=== PATIENT | female | born 1985 | race Caucasian/White ===

== ENCOUNTER 2017-08-25 22:33 | Emergency (ER) | payer OTHER, MEDICAID, SELFPAY ==
[2017-08-25 22:40] VITALS: BP 149/93; PULSE 115; RESP 22; TEMP 38.8; O2SAT 95; BMI 48.0
[2017-08-26] MEDS: ACETAMINOPHEN 325 MG TABLET 975 MG PO (00:20)
[2017-08-26] MEDS: IBUPROFEN 400 MG TABLET PO (00:20)
[2017-08-26 01:01] VITALS: BP 136/84; PULSE 107; RESP 22; TEMP 38.1; O2SAT 92
[2017-08-26] MEDS: AZITHROMYCIN 250 MG TABLET 500 MG PO (01:30)
--- NOTE | 2017-08-26 05:29 | ED_ITS ---
HPI - URI/Sore Throat General Chief Complaint: Upper Respiratory Symptoms Stated Complaint: FEVER,SORE THROAT,CHILLS Time Seen by Provider: 08/26/17 00:00 Source: patient and family Mode of arrival: ambulatory Limitations: no limitations History of Present Illness HPI Narrative: 32-year-old relatively healthy female presents with a chief complaint of a sudden onset severe sore throat with fever as high as 102. She states it hurts her to swallow and she denies other respiratory symptoms such as runny nose or cough. She was exposed to a friend was strep in the past few days MD Complaint: fever and sore throat Onset (ago): hour(s) Duration: constant Severity: similar to previous episodes Relieving factors: nothing Exacerbating factors: nothing Able to tolerate fluids by mouth: Yes Context: sick contacts Associated symptoms: fever and sore throat Treatments prior to arrival: none Related Data Previous Rx's Medication Instructions Recorded albuterol sulfate [Proventil HFA] 2 puff INH Q4-6H #17 gm 10/08/12 fluticasone-salmeterol [Advair 1 puff INH BID #1 disk 10/08/12 Diskus] ciprofloxacin HCl [Cipro] 500 mg PO BID 4 Days #0 tab 12/25/15 hydrocodone-acetaminophen [[place]] 1 - 2 tab PO Q4H PRN #15 tab 05/28/17 azithromycin 500 mg PO DAILY 5 Days tab 08/26/17 Allergies Allergy/AdvReac Type Severity Reaction Status Date / Time No Known Drug Allergies Allergy Verified 08/25/17 22:39 Review of Systems Review of Systems All systems reviewed & are unremarkable except as noted in HPI and below Constitutional Reports chills, Reports fever(s), Denies lethargy and Denies weakness Eyes Denies change in vision, Denies eye discharge, Denies irritation and Denies loss of vision ENT Ears, Nose, Mouth, and Throat: Denies change in voice, Denies neck pain and Reports sore throat Cardiovascular Denies chest pain, Denies irregular heart rhythm, Denies lightheadedness, Denies palpitations, Denies dyspnea, Denies dyspnea on exertion and Denies orthopnea Respiratory Denies cough, Denies dyspnea, Denies dyspnea on exertion and Denies wheezing Gastrointestinal Gastrointestinal: Denies abdominal pain, Denies change in bowel habits, Denies diarrhea, Denies nausea and Denies vomiting Genitourinary Denies hematuria, Denies flank pain, Denies urinary incontinence and Denies urinary urgency Musculoskeletal Denies neck pain Integumentary/Breasts Denies pruritus, Denies erythema, Denies rash and Denies wounds Neurologic Denies confusion, Denies loss of vision and Denies weakness Psychiatric Denies anxiety, Denies confusion, Denies depression, Denies homicidal ideation and Denies suicidal ideation Endocrine Denies palpitations Hematologic/Lymphatic Denies easy bruising Allergic/Immunologic Denies wheezing [facility] Social History Smoking Status: Current some day smoker Exam Initial Vital Signs Initial Vital Signs: Vital Signs Temperature 101.8 F H 08/25/17 22:40 Pulse Rate 115 H 08/25/17 22:40 Respiratory Rate 22 08/25/17 22:40 Blood Pressure 149/93 H 08/25/17 22:40 Pulse Oximetry 95 08/25/17 22:40 Const General: cooperative and well developed Nutritional Appearance: well nourished Orientation: alert, awake, oriented x3 and not confused HENAR Head: normocephalic and atraumatic Ears: external ears normal and TM's normal bilaterally Nose: external nose normal and No nasal discharge Face and sinus: sinuses nontender, face symmetric, no sinus tenderness and No dry mucous membranes Mouth: oral mucosae normal and moist mucous membranes Teeth and gingiva: dentition normal Throat: posterior oropharynx abnormal edema and erythema Eyes General: appearance normal, both eyes and all related structures Eyelids: eyelids normal Conjunctivae: conjunctivae normal Sclera: sclerae normal Pupils: PERRL EOM: EOM intact bilaterally Neck Neck: normal visual inspection, trachea midline, No lymphadenopathy, No midline deformity and No JVD Lymphatic: No lymphedema Chest Chest: normal inspection of the chest Resp Effort & Inspection: normal respiratory effort, able to speak in complete sentences, no respiratory distress and no use of accessory muscles Auscultation: clear to auscultation bilaterally, no rales, no rhonchi and no wheezes Cardio Rate: regular rate Rhythm: regular rhythm Heart Sounds: no click, no gallops, no murmurs and no rubs Pulses: normal peripheral pulses GI Inspection: non-distended Palpation: soft, no hepatosplenomegaly, No guarding, No pulsatile mass and No tender Auscultation: normal bowel sounds Back/Spine/Pelvis Back: No CVA tenderness Cervical Spine: cervical ROM normal and No pain with cervical ROM Thoracic/Lumbar Spine: thoracic and lumbar spine normal to inspection Skin General: no rashes or lesions noted, No jaundice and No petechiae Neuro General: alert, oriented x3, gait normal and no focal motor deficits Speech: speech normal Extrem General: full ROM, no clubbing, cyanosis or edema, no pedal edema and no calf tenderness Psych Appearance: well kempt Mental Status: mental status grossly normal Attitude: cooperative Thought Content: normal and suicidality Judgment: judgment good Course Orders Ordered: Discontinued Medications Acetaminophen (Tylenol) 975 mg PO NOW ONE Stop: 08/26/17 00:18 Last Admin: 08/26/17 00:20 Dose: 975 mg Azithromycin (Zithromax) 500 mg PO NOW ONE Stop: 08/26/17 01:24 Last Admin: 08/26/17 01:30 Dose: 500 mg Ibuprofen (Advil) 400 mg PO NOW ONE Stop: 08/26/17 00:18 Last Admin: 08/26/17 00:20 Dose: 400 mg Vital Signs - 8 hr 08/25/17 22:40 08/26/17 01:01 Temperature 101.8 F H 100.6 F H Pulse Rate 115 H 107 H Respiratory Rate 22 22 Blood Pressure 149/93 H Blood Pressure [Right Arm] 136/84 H Pulse Oximetry 95 92 MDM - URI/Sore Throat Lab Data Lab Results 08/25/17 Range/Units 23:08 Urine RBC Cancelled Urine WBC Cancelled Ur Squamous Epith Cells Cancelled Ur Transition Epith Cell Cancelled Ur Renal Epithelial Cell Cancelled Calcium Oxalate Crystal Cancelled Uric Acid Crystals Cancelled Triple Phos Crystals Cancelled Other Crystals Cancelled Amorphous Sediment Cancelled Urine Bacteria Cancelled Hyaline Casts Cancelled Granular Casts Cancelled RBC Casts Cancelled WBC Casts Cancelled Other Casts Cancelled Urine Mucus Cancelled Urine Trichomonas Cancelled Urine Yeast Cancelled Urine Sperm Cancelled Ur Culture Indicated? Cancelled Micro UA Comment Cancelled MDM Narrative Medical decision making narrative: The rapid strep test was negative but the symptoms started later in the day and rapidly worsened. She has a significant fever and pain with swallowing but lacks other typical viral upper respiratory infections. She has been of exposed to swab confirm strep and has had strep in the past and states this feels the same. Even no her rapid strep was negative it seems most consistent with strep infection and therefore antibiotics will be administered Discharge Plan Departure Patient Disposition: Home, Self-Care Clinical Impression: Strep pharyngitis Discharge Date/Time: 08/26/17 01:38 Interventions: ED Discharge Assessment Last Done: 08/26/17 01:37 Instructions: DI for Strep Throat Activity Restrictions/Additional Instructions: *You have been diagnosed with [strep throat ] *What to do: *Take medications as directed *Follow up with your primary care provider in 2-3 days *Return to ER if you should have any new, worsening or concerning symptoms Prescriptions: New azithromycin 500 mg tablet 500 mg PO DAILY 5 Days RF: 0 No Action fluticasone-salmeterol [Advair Diskus] 100 MCG/50 MCG blister with device 1 puff INH BID Qty: 1 RF: 12 albuterol sulfate [Proventil HFA] 90 MCG/PUFF HFA aerosol inhaler 2 puff INH Q4-6H Qty: 17 RF: 12 ciprofloxacin HCl [Cipro] 500 MG tablet 500 mg PO BID 4 Days Qty: 0 RF: 0 hydrocodone-acetaminophen [[place]] 5 MG/325 MG tablet 1 - 2 tab PO Q4H PRNQty: 15 RF: 0
== END 2017-08-26 01:38 | disposition home or self-care (01) ==
PROVIDERS: Emergency Provider Emergency Medicine; PCP Physician Assistant Medical
DX: J02.0 Streptococcal pharyngitis (principal)
CPT/HCPCS: 81025; 87880; 99282; 99283

== ENCOUNTER 2018-03-19 12:30 | Emergency (ER) | payer OTHER, MEDICAID, SELFPAY ==
--- NOTE | 2018-03-19 13:07 | DI.RAD.S_ITS ---
PROCEDURE: XR FINGER RT MIN 2V INDICATIONS: injury TECHNIQUE: AP hand, 2 views of the index (2nd) finger(s) acquired. COMPARISON: None. FINDINGS: Bones: No displaced fractures or dislocations are identified involving the index finger. Soft tissues: No suspicious soft tissue calcifications. Soft tissue swelling about the index finger is present. No unexpected radiopaque foreign bodies are evident. IMPRESSION: No acute osseous abnormality of the right index finger. Dictated by: Aramis Delatorre M.D. on 03/19/2018 at 12:29 Approved by: Aramis Delatorre M.D. on 03/19/2018 at 12:38
[2018-03-19 13:08] VITALS: BP 167/94; PULSE 86; RESP 15; TEMP 36.9; O2SAT 97; BMI 46.3
--- NOTE | 2018-03-19 13:14 | ED_ITS ---
HPI - Extremity Injury (Upper) <WILBERT Capps - Last Filed: 03/19/18 15:24> General Chief Complaint: Extremity Injury, Upper Stated Complaint: RIGHT HAND INJURY Time Seen by Provider: 03/19/18 13:09 Source: patient Mode of arrival: ambulatory Limitations: no limitations History of Present Illness HPI narrative: Patient is a 33-year-old female current everyday smoker with ADHD and history of a humerus fracture who presents with a chief complaint of an injury to her 2nd finger of her right him. She states she closed in a back car door at approximately 11:00 a.m. this morning. She is unsure of her last tetanus. She states there is still skin on the car door. Related Data Previous Rx's Medication Instructions Recorded albuterol sulfate [Proventil HFA] 2 puff INH Q4-6H #17 gm 10/08/12 fluticasone-salmeterol [Advair 1 puff INH BID #1 disk 10/08/12 Diskus] Allergies Allergy/AdvReac Type Severity Reaction Status Date / Time No Known Drug Allergies Allergy Verified 03/19/18 13:08 Review of Systems <WILBERT Capps - Last Filed: 03/19/18 15:24> Review of Systems GENERAL: Denies chills, fatigue, malaise, fever, sweats. HEENT: Denies sinus pain, ear pain, sore throat, difficulty swallowing, dizziness. RESPIRATORY: Denies dyspnea, cough, wheezing, hemoptysis, sputum. CARDIOVASCULAR: Denies chest pain, palpitations, orthopnea, edema, GASTROINTESTINAL: Denies nausea, vomiting, abdominal pain, diarrhea, constipation, melena. : Denies dysuria, frequency, incontinence, hematuria, urinary retention. MUSCULOSKELETAL: See HPI SKIN: see HPI NEUROLOGIC: Denies weakness, headache, numbness, change in speech, confusion, seizures, incoordination. PSYCHIATRIC: No concerning psychosocial issues. 12 point review of systems is negative except for those stated above Exam <WILBERT Capps - Last Filed: 03/19/18 15:24> Narrative Exam Narrative: GENERAL: This is a well-nourished, well-developed patient, in no acute distress HEAD: Atraumatic. Normocephalic. No temporal or scalp tenderness. EYES: Pupils equal round and reactive. Extraocular motions intact. No scleral icterus. No injection or drainage. ENT: Nose without bleeding, purulent drainage or septal hematoma. Throat without erythema, tonsillar hypertrophy or exudate. Uvula midline. Airway patent. NECK: Trachea midline. No JVD or lymphadenopathy. Supple, nontender, no meningeal signs. CARDIOVASCULAR: Regular rate and rhythm without murmurs, gallops, or rubs. RESPIRATORY: Clear to auscultation. Breath sounds equal bilaterally. No wheezes , rales, or rhonchi. GASTROINTESTINAL: Abdomen soft, non-tender, nondistended. No hepato-splenomegaly , or palpable masses. No guarding. EXTREMITIES: No clubbing, cyanosis, or edema. No joint tenderness, effusion, or edema noted. Full range of motion noted 2nd digit right hand. BACK: Nontender without deformity or crepitance. No flank tenderness. NEURO: AOx3. SKIN: 1.5 cm linear laceration 2nd digit right hand dorsal aspect. From base of the nail. Approximately 2-3 mm separation between sides. Through dermis. No tendon or muscle involvement. Initial Vital Signs Initial Vital Signs: Vital Signs Temperature 98.4 F 03/19/18 13:08 Pulse Rate 86 03/19/18 13:08 Respiratory Rate 15 03/19/18 13:08 Blood Pressure 167/94 H 03/19/18 13:08 Pulse Oximetry 97 03/19/18 13:08 <Silvestre Betancourt DO - Last Filed: 03/19/18 15:30> Initial Vital Signs Initial Vital Signs: Vital Signs Temperature 98.4 F 03/19/18 13:08 Pulse Rate 86 03/19/18 13:08 Respiratory Rate 15 03/19/18 13:08 Blood Pressure 167/94 H 03/19/18 13:08 Pulse Oximetry 97 03/19/18 13:08 Procedures <JOSEY Capps-BC - Last Filed: 03/19/18 15:24> Laceration Repair Laceration 1: Site: hand (2nd digit ) Side (If applicable): right Size (cm): 1.5 Description: linear Depth: simple, single layer Pre-repair: wound explored, irrigated extensively ( Hibiclens and iodine ) and deep structures intact Skin layer closed with: other (2 steri strip) Size (cm): other (1.5) Course <WILBERT Capps - Last Filed: 03/19/18 15:24> Orders Ordered: ED Orders 03/19/18 13:07 XR finger RT min 2V Stat Vital Signs - 8 hr 03/19/18 13:08 Temperature 98.4 F Pulse Rate 86 Respiratory Rate 15 Blood Pressure 167/94 H Pulse Oximetry 97 <Silvestre Betancourt DO - Last Filed: 03/19/18 15:30> Orders Ordered: ED Orders 03/19/18 13:07 XR finger RT min 2V Stat Vital Signs - 8 hr 03/19/18 13:08 Temperature 98.4 F Pulse Rate 86 Respiratory Rate 15 Blood Pressure 167/94 H Pulse Oximetry 97 MDM - Extremity Injury (Upper) <WILBERT Capps - Last Filed: 03/19/18 15:24> Imaging Data finger xray : Radiologist's impression: [address] [address] XRay Report Signed Patient: Adenike Monae [facility]#: [id number] : 1985Acct:[id number] Age/Sex: 33 / FDate of Service: 03/19/18 Loc: ED Accession Number: [id number] Procedure: XR finger RT min 2V Ordering Provider: Silvestre Betancourt D.O. PROCEDURE: XR FINGER RT MIN 2V INDICATIONS: injury TECHNIQUE: AP hand, 2 views of the index (2nd) finger(s) acquired. COMPARISON: None. FINDINGS: Bones: No displaced fractures or dislocations are identified involving the index finger. Soft tissues: No suspicious soft tissue calcifications. Soft tissue swelling about the index finger is present. No unexpected radiopaque foreign bodies are evident. IMPRESSION: No acute osseous abnormality of the right index finger. Dictated by: Aramis Delatorre M.D. on 03/19/2018 at 12:29 Approved by: Aramis Delatorre M.D. on 03/19/2018 at 12:38 [facility] Narrative Medical decision making narrative: patient is a 33-year-old female who presents with chief complaint of a laceration to her 2nd digit of her right hand. She closed her hand in a car door. Her tetanus was updated. Her x-ray showed no acute fracture. His laceration was closed with 2 Steri-Strips after being cleansed with Hibiclens. She has full range of motion and good circulation. I discussed at length monitoring for signs and symptoms of infection including redness, pus fever. Discussed return precautions the emergency department Including concern for circulation of finger.. Patient has no questions or concerns upon discharge. Discharge Plan Departure Patient Disposition: Home Clinical Impression: Laceration Discharge Date/Time: 03/19/18 15:02 Interventions: ED Discharge Assessment Last Done: 03/19/18 15:02 Instructions: DI for Laceration Repair Steri-Strips, How To Perform RICE (Rest , Ice, Compress, Elevate) Activity Restrictions/Additional Instructions: Please monitor your wound for signs and symptoms of infection including redness, pus and fever. Please follow-up with primary care provider if any of these occur. Please monitor your finger for circulation. Please do not submerge her finger injury dirty water including tubs pools etc. Please use rest ice compression elevation as well as [id number] medications as needed for pain. Prescriptions: No Action fluticasone-salmeterol [Advair Diskus] 100 MCG/50 MCG blister with device 1 puff INH BID Qty: 1 RF: 12 albuterol sulfate [Proventil HFA] 90 MCG/PUFF HFA aerosol inhaler 2 puff INH Q4-6H Qty: 17 RF: 12 Referrals: Laura Mcpherson PA-C [Primary Care Provider] - <Silvestre Betancourt DO - Last Filed: 03/19/18 15:30> Cosign ED Attending Chantel Attestation: I was available for consultation during this patient's emergency department encounter
[2018-03-19] MEDS: DIPHTH,PERTUSS(ACELL),TET VAC 0.5 ML SYRINGE IM (13:32)
== END 2018-03-19 15:02 | disposition home or self-care (01) ==
PROVIDERS: Emergency Provider Nurse Practitioner Family; PCP Physician Assistant Medical
DX: S61.210A Laceration without foreign body of right index finger without damage to nail, initial encounter (principal); W23.0XXA Caught, crushed, jammed, or pinched between moving objects, initial encounter
CPT/HCPCS: 29130; 73140; 90471; 90715; 99283

== ENCOUNTER 2018-07-23 11:03 | Emergency (ER) | payer OTHER, MEDICAID, SELFPAY ==
--- NOTE | 2018-07-23 | DI.RAD.S_ITS ---
PROCEDURE: XR HUMERUS LT 2V INDICATIONS: LEFT ARM PAIN TECHNIQUE: 2 views of the humerus were acquired. COMPARISON: [facility], , HUMERUS 2V LEFT, 05/28/2017, 19:07. FINDINGS: Bones: No previously unidentified fractures or dislocations. No suspicious bony lesions. A long fixation plate extends across the previously identified fracture involving the mid diaphysis of the left humerus, establishing near anatomic alignment except for a small medial butterfly fracture fragment which is slightly elevated from anatomic alignment. Soft tissues: No suspicious soft tissue calcifications. IMPRESSION: Near-anatomic alignment established by ORIF of a comminuted angulated mid shaft left humeral diaphyseal fracture. Dictated by: Abhishek Holloway M.D. on 07/23/2018 at 11:51 Approved by: Abhishek Holloway M.D. on 07/23/2018 at 11:52
[2018-07-23 11:10] VITALS: BP 155/91; PULSE 95; RESP 16; TEMP 36.9; O2SAT 95; BMI 48.0
--- NOTE | 2018-07-23 11:14 | DI.RAD.S_ITS ---
PROCEDURE: XR ELBOW LT MIN 3V INDICATIONS: injury pain TECHNIQUE: 3 views of the elbow were acquired. COMPARISON: [facility] [place], CR, XR HUMERUS LEFT, 05/30/2017, 13:08. [facility] [place], CR, XR ELBOW 1 OR 2 VIEWS LEFT, 05/30/2017, 13:28. FINDINGS: Bones: No previously unidentified fractures or dislocations. No suspicious bony lesions. A fractured fixation plate has been placed crossing the area of prior fracture, and showing callus bridging the fracture planes. No operative complications. Soft tissues: No elbow joint effusion. No suspicious soft tissue calcifications. IMPRESSION: Healing of the previously identified fracture after ORIF establishing virtual anatomic alignment through the area visualized. Dictated by: Abhishek Holloway M.D. on 07/23/2018 at 11:53 Approved by: Abhishek Holloway M.D. on 07/23/2018 at 11:54
--- NOTE | 2018-07-23 12:04 | ED.UPPEXIN ---
HPI - Extremity Injury (Upper) <Monica Quinn PA-C - Last Filed: 07/23/18 18:20> General Chief Complaint: Extremity Injury, Upper Stated Complaint: LT ARM PAIN Time Seen by Provider: 07/23/18 11:36 Source: patient Mode of arrival: ambulatory Limitations: no limitations History of Present Illness HPI narrative: This 33-year-old female comes to ED secondary to pain in the left upper arm after she lifted a 30 or 40 lb bin off of a shelf at elbow height yesterday (with both hands). She states that she heard a cracking, crunching sensation and then has had localized pain (indicates superior lateral to the antecubital fossa) since then. She states that she has residual numbness from her fracture repair that was done there last year, but the pain in this area as sharp. She denies any weakness or paresthesia. She states her range of motion is unchanged, still somewhat limited (she is in PT still after her surgery). She has been taking some leftover Tylenol with codeine as well as ibuprofen. She spoke with her orthopedist today who advised her she should have x-rays to make sure nothing loose in the surgical site. She denies any other complaints or injuries. Related Data Previous Rx's Medication Instructions Recorded albuterol sulfate [Proventil HFA] 2 puff INH Q4-6H #17 gm 10/08/12 fluticasone propion-salmeterol 1 puff INH BID #1 disk 10/08/12 [Advair Diskus] lidocaine 2 patch TOP Q24H #30 each 07/23/18 Allergies Allergy/AdvReac Type Severity Reaction Status Date / Time No Known Drug Allergies Allergy Verified 07/23/18 11:10 Review of Systems <Monica Quinn PA-C - Last Filed: 07/23/18 18:20> Review of Systems ROS Unobtainable: All systems reviewed & are unremarkable except as noted in HPI and below PFSH <Monica Quinn PA-C - Last Filed: 07/23/18 18:20> Medical History (Updated 07/23/18 @ 12:27 by Monica Quinn PA-C) ADHD (Chronic) Asthma (Chronic) S/P ORIF (open reduction internal fixation) fracture (Resolved) Social History Smoking Status: Current some day smoker Social History Smoking Status: Current some day smoker Exam <Monica Quinn PA-C - Last Filed: 07/23/18 18:20> Narrative Exam Narrative: GENERAL APPEARANCE: Patient sitting comfortably, in no distress. LUNGS: Clear to auscultation bilaterally. HEART: Rate and rhythm regular without murmur, normal S1 and S2, no S3 or S4. DERMATOLOGIC: Extensive, healed surgical scar left upper arm NEUROVASCULAR: Left upper extremity warm and pink with brisk cap refill, sensation grossly intact MUSCULOSKELETAL: No tenderness over the left shoulder, olecranon, forearm, wrist or hand. No effusion over the upper extremity joints. She has full range of motion throughout except reduced abduction/external rotation of the shoulder. 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 Moderate localized tenderness over the distal, lateral biceps insertions on the left Initial Vital Signs Initial Vital Signs: Vital Signs Temperature 98.5 F 07/23/18 11:10 Pulse Rate 95 H 07/23/18 11:10 Respiratory Rate 16 07/23/18 11:10 Blood Pressure 155/91 H 07/23/18 11:10 Pulse Oximetry 95 07/23/18 11:10 <Lou Edwards MD - Last Filed: 07/25/18 08:33> Initial Vital Signs Initial Vital Signs: Vital Signs Temperature 98.5 F 07/23/18 11:10 Pulse Rate 95 H 07/23/18 11:10 Respiratory Rate 16 07/23/18 11:10 Blood Pressure 155/91 H 07/23/18 11:10 Pulse Oximetry 95 07/23/18 11:10 Course <Monica Quinn PA-C - Last Filed: 07/23/18 18:20> Orders Ordered: ED Orders 07/23/18 11:14 XR elbow LT min 3V Stat Vital Signs - 8 hr 07/23/18 11:10 07/23/18 12:57 Temperature 98.5 F Pulse Rate 95 H 73 Respiratory Rate 16 15 Blood Pressure 155/91 H 154/96 H Pulse Oximetry 95 98 <Lou Edwards MD - Last Filed: 07/25/18 08:33> Orders Ordered: ED Orders 07/23/18 11:14 XR elbow LT min 3V Stat Vital Signs - 8 hr 07/23/18 11:10 07/23/18 12:57 Temperature 98.5 F Pulse Rate 95 H 73 Respiratory Rate 16 15 Blood Pressure 155/91 H 154/96 H Pulse Oximetry 95 98 MDM - Extremity Injury (Upper) <Monica Quinn PA-C - Last Filed: 07/23/18 18:20> Imaging Data humerus: Radiologist's impression: [address] [address] XRay Report Signed Patient: Adenike Monae [facility]#: [id number] : 1985Acct:[id number] Age/Sex: 33 / FDate of Service: 07/23/18 Loc: ED Accession Number: [id number] Procedure: XR elbow LT min 3V Ordering Provider: Lou Edwards MD PROCEDURE: XR ELBOW LT MIN 3V INDICATIONS: injury pain TECHNIQUE: 3 views of the elbow were acquired. COMPARISON: [facility], CR, XR HUMERUS LEFT, 05/30/2017, 13:08. [facility], CR, XR ELBOW 1 OR 2 VIEWS LEFT, 05/30/2017, 13:28. FINDINGS: Bones: No previously unidentified fractures or dislocations. No suspicious bony lesions. A fractured fixation plate has been placed crossing the area of prior fracture, and showing callus bridging the fracture planes. No operative complications. Soft tissues: No elbow joint effusion. No suspicious soft tissue calcifications. IMPRESSION: Healing of the previously identified fracture after ORIF establishing virtual anatomic alignment through the area visualized. Dictated by: Abhishek Holloway M.D. on 07/23/2018 at 11:53 Approved by: Abhishek Holloway M.D. on 07/23/2018 at 11:54 Discharge Plan Departure Patient Disposition: Home Clinical Impression: Strain of left upper arm Qualifiers: Encounter type: initial encounter Qualified Code(s): S46.912A - Strain of unspecified muscle, fascia and tendon at shoulder and upper arm level, left arm, initial encounter Discharge Date/Time: 07/23/18 12:59 Interventions: ED Discharge Assessment Last Done: 07/23/18 12:57 Instructions: DI for Arm Pain Activity Restrictions/Additional Instructions: There was no acute problem with your hardware or new break found on your x-ray today. I think that you likely strained the soft tissues in the upper arm where you are hurting. 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 You can wear those for 12 hours daily. Please rest the area. Since you do repetitive motion at work, please speak with your orthopedist and determine whether you need to take more time off of work and also review whether there needs to be any changes in your physical therapy due to this injury. Return as we talked about if any acutely worsening symptoms in the interim. Prescriptions: New lidocaine 5 % adhesive patch,medicated 2 patch TOP Q24H Qty: 30 RF: 0 No Action fluticasone propion-salmeterol [Advair Diskus] 100 MCG/50 MCG blister with device 1 puff INH BID Qty: 1 RF: 12 albuterol sulfate [Proventil HFA] 90 MCG/PUFF HFA aerosol inhaler 2 puff INH Q4-6H Qty: 17 RF: 12 Referrals: Bud Wynne [Other] Stand Alone Forms: Work Release Note
--- NOTE | 2018-07-23 12:07 | ED_ITS ---
HPI - Extremity Injury (Upper) <Monica Quinn PA-C - Last Filed: 07/23/18 18:20> General Chief Complaint: Extremity Injury, Upper Stated Complaint: LT ARM PAIN Time Seen by Provider: 07/23/18 11:36 Source: patient Mode of arrival: ambulatory Limitations: no limitations History of Present Illness HPI narrative: This 33-year-old female comes to ED secondary to pain in the left upper arm after she lifted a 30 or 40 lb bin off of a shelf at elbow height yesterday (with both hands). She states that she heard a cracking, crunching sensation and then has had localized pain (indicates superior lateral to the antecubital fossa) since then. She states that she has residual numbness from her fracture repair that was done there last year, but the pain in this area as sharp. She denies any weakness or paresthesia. She states her range of motion is unchanged, still somewhat limited (she is in PT still after her surgery). She has been taking some leftover Tylenol with codeine as well as ibuprofen. She spoke with her orthopedist today who advised her she should have x-rays to make sure nothing loose in the surgical site. She denies any other complaints or injuries. Related Data Previous Rx's Medication Instructions Recorded albuterol sulfate [Proventil HFA] 2 puff INH Q4-6H #17 gm 10/08/12 fluticasone propion-salmeterol 1 puff INH BID #1 disk 10/08/12 [Advair Diskus] lidocaine 2 patch TOP Q24H #30 each 07/23/18 Allergies Allergy/AdvReac Type Severity Reaction Status Date / Time No Known Drug Allergies Allergy Verified 07/23/18 11:10 Review of Systems <Monica Quinn PA-C - Last Filed: 07/23/18 18:20> Review of Systems ROS Unobtainable: All systems reviewed & are unremarkable except as noted in HPI and below PFSH <Monica Quinn PA-C - Last Filed: 07/23/18 18:20> Medical History (Updated 07/23/18 @ 12:27 by Monica Quinn PA-C) ADHD (Chronic) Asthma (Chronic) S/P ORIF (open reduction internal fixation) fracture (Resolved) Social History Smoking Status: Current some day smoker Social History Smoking Status: Current some day smoker Exam <Monica Quinn PA-C - Last Filed: 07/23/18 18:20> Narrative Exam Narrative: GENERAL APPEARANCE: Patient sitting comfortably, in no distress. LUNGS: Clear to auscultation bilaterally. HEART: Rate and rhythm regular without murmur, normal S1 and S2, no S3 or S4. DERMATOLOGIC: Extensive, healed surgical scar left upper arm NEUROVASCULAR: Left upper extremity warm and pink with brisk cap refill, sensation grossly intact MUSCULOSKELETAL: No tenderness over the left shoulder, olecranon, forearm, wrist or hand. No effusion over the upper extremity joints. She has full range of motion throughout except reduced abduction/external rotation of the shoulder. 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 Moderate localized tenderness over the distal, lateral biceps insertions on the left Initial Vital Signs Initial Vital Signs: Vital Signs Temperature 98.5 F 07/23/18 11:10 Pulse Rate 95 H 07/23/18 11:10 Respiratory Rate 16 07/23/18 11:10 Blood Pressure 155/91 H 07/23/18 11:10 Pulse Oximetry 95 07/23/18 11:10 <Lou Edwards MD - Last Filed: 07/25/18 08:33> Initial Vital Signs Initial Vital Signs: Vital Signs Temperature 98.5 F 07/23/18 11:10 Pulse Rate 95 H 07/23/18 11:10 Respiratory Rate 16 07/23/18 11:10 Blood Pressure 155/91 H 07/23/18 11:10 Pulse Oximetry 95 07/23/18 11:10 Course <Monica Quinn PA-C - Last Filed: 07/23/18 18:20> Orders Ordered: ED Orders 07/23/18 11:14 XR elbow LT min 3V Stat Vital Signs - 8 hr 07/23/18 11:10 07/23/18 12:57 Temperature 98.5 F Pulse Rate 95 H 73 Respiratory Rate 16 15 Blood Pressure 155/91 H 154/96 H Pulse Oximetry 95 98 <Lou Edwards MD - Last Filed: 07/25/18 08:33> Orders Ordered: ED Orders 07/23/18 11:14 XR elbow LT min 3V Stat Vital Signs - 8 hr 07/23/18 11:10 07/23/18 12:57 Temperature 98.5 F Pulse Rate 95 H 73 Respiratory Rate 16 15 Blood Pressure 155/91 H 154/96 H Pulse Oximetry 95 98 MDM - Extremity Injury (Upper) <Monica Quinn PA-C - Last Filed: 07/23/18 18:20> Imaging Data humerus: Radiologist's impression: [address] [address] XRay Report Signed Patient: Adenike Monae [facility]#: [id number] : 1985Acct:[id number] Age/Sex: 33 / FDate of Service: 07/23/18 Loc: ED Accession Number: [id number] Procedure: XR elbow LT min 3V Ordering Provider: Lou Edwards MD PROCEDURE: XR ELBOW LT MIN 3V INDICATIONS: injury pain TECHNIQUE: 3 views of the elbow were acquired. COMPARISON: [facility], CR, XR HUMERUS LEFT, 05/30/2017, 13:08. [facility], CR, XR ELBOW 1 OR 2 VIEWS LEFT, 05/30/2017, 13:28. FINDINGS: Bones: No previously unidentified fractures or dislocations. No suspicious bony lesions. A fractured fixation plate has been placed crossing the area of prior fracture, and showing callus bridging the fracture planes. No operative complications. Soft tissues: No elbow joint effusion. No suspicious soft tissue calcifications. IMPRESSION: Healing of the previously identified fracture after ORIF establishing virtual anatomic alignment through the area visualized. Dictated by: Abhishek Holloway M.D. on 07/23/2018 at 11:53 Approved by: Abhishek Holloway M.D. on 07/23/2018 at 11:54 Discharge Plan Departure Patient Disposition: Home Clinical Impression: Strain of left upper arm Qualifiers: Encounter type: initial encounter Qualified Code(s): S46.912A - Strain of unspecified muscle, fascia and tendon at shoulder and upper arm level, left arm, initial encounter Discharge Date/Time: 07/23/18 12:59 Interventions: ED Discharge Assessment Last Done: 07/23/18 12:57 Instructions: DI for Arm Pain Activity Restrictions/Additional Instructions: There was no acute problem with your hardware or new break found on your x-ray today. I think that you likely strained the soft tissues in the upper arm where you are hurting. 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 You can wear those for 12 hours daily. Please rest the area. Since you do repetitive motion at work, please speak with your orthopedist and determine whether you need to take more time off of work and also review whether there needs to be any changes in your physical therapy due to this injury. Return as we talked about if any acutely worsening symptoms in the interim. Prescriptions: New lidocaine 5 % adhesive patch,medicated 2 patch TOP Q24H Qty: 30 RF: 0 No Action fluticasone propion-salmeterol [Advair Diskus] 100 MCG/50 MCG blister with device 1 puff INH BID Qty: 1 RF: 12 albuterol sulfate [Proventil HFA] 90 MCG/PUFF HFA aerosol inhaler 2 puff INH Q4-6H Qty: 17 RF: 12 Referrals: [facility] Wynne [Other] Stand Alone Forms: Work Release Note
[2018-07-23 12:57] VITALS: BP 154/96; PULSE 73; RESP 15; O2SAT 98
== END 2018-07-23 12:59 | disposition home or self-care (01) ==
PROVIDERS: Emergency Provider Internal Medicine; PCP Physician Assistant Medical
DX: S46.912A Strain of unspecified muscle, fascia and tendon at shoulder and upper arm level, left arm, initial encounter (principal)
CPT/HCPCS: 73060; 73080; 99282; 99283

== ENCOUNTER 2018-10-10 01:30 | Emergency (ER) | payer OTHER, MEDICAID, SELFPAY ==
[2018-10-10 01:39] VITALS: BMI 47.2
[2018-10-10 01:41] VITALS: BP 166/104; PULSE 88; RESP 18; TEMP 36.6; O2SAT 99
[2018-10-10] MEDS: GENTAMICIN 0.3% OPHTH PREPACK 1 BOTTLE MISC (03:30)
[2018-10-10 03:39] VITALS: BP 152/88; PULSE 80; RESP 18; O2SAT 99
--- NOTE | 2018-10-13 17:38 | ED_ITS ---
HPI - Eye Problem General Chief complaint: Eye Problems Stated complaint: Right eye swollen pain watering scratched by puppy Time Seen by Provider: 10/10/18 03:00 Source: patient Mode of arrival: ambulatory Limitations: no limitations History of Present Illness HPI Narrative: Patient comes emergency department complaining of right eye redness, tearing, itching, and pain after being scratched by her puppy earlier i n the day. Patient states she was playing with a puppy, and that his paw came forward and struck her eye. Patient denies any drainage from the eye, though she has had a little more mucus production than usual. She denies fevers. No exposure to conjunctivitis. No upper respiratory symptoms. She does not wear contacts. No symptoms in the other eye. She states her vision is slightly blurry but mostly intact. No other complaints at this time. Related Data Previous Rx's Medication Instructions Recorded albuterol sulfate [Proventil HFA] 2 puff INH Q4-6H #17 gm 10/08/12 fluticasone propion-salmeterol 1 puff INH BID #1 disk 10/08/12 [Advair Diskus] lidocaine 2 patch TOP Q24H #30 each 07/23/18 Allergies Allergy/AdvReac Type Severity Reaction Status Date / Time No Known Drug Allergies Allergy Verified 07/23/18 11:10 Review of Systems Constitutional Denies chills, Denies fever(s), Denies lethargy and Denies weakness Eyes Reports blurry vision, Denies change in vision, Denies eye discharge, Reports irritation and Denies loss of vision Comments: Injury ENT Ears, Nose, Mouth, and Throat: Denies change in voice, Denies neck pain and Denies sore throat Cardiovascular Denies chest pain, Denies irregular heart rhythm, Denies lightheadedness, Denies palpitations, Denies dyspnea, Denies dyspnea on exertion and Denies orthopnea Respiratory Denies cough, Denies dyspnea, Denies dyspnea on exertion and Denies wheezing Gastrointestinal Gastrointestinal: Denies abdominal pain, Denies change in bowel habits, Denies diarrhea, Denies nausea and Denies vomiting Genitourinary Denies hematuria, Denies flank pain, Denies urinary incontinence and Denies urinary urgency Musculoskeletal Denies neck pain Integumentary/Breasts Denies pruritus, Denies erythema, Denies rash and Denies wounds Neurologic Denies confusion, Denies loss of vision and Denies weakness Psychiatric Denies anxiety, Denies confusion, Denies depression, Denies homicidal ideation and Denies suicidal ideation Endocrine Denies palpitations Hematologic/Lymphatic Denies easy bruising Allergic/Immunologic Denies wheezing [facility] Medical History ADHD (Chronic) Asthma (Chronic) S/P ORIF (open reduction internal fixation) fracture (Resolved) Social History Smoking Status: Current some day smoker Social History Smoking Status: Current some day smoker Exam Initial Vital Signs Initial Vital Signs: Vital Signs Temperature 97.9 F 10/10/18 01:41 Pulse Rate 88 10/10/18 01:41 Respiratory Rate 18 10/10/18 01:41 Blood Pressure 166/104 H 10/10/18 01:41 Pulse Oximetry 99 10/10/18 01:41 Const General: cooperative and well developed Nutritional Appearance: well nourished Orientation: alert, awake, oriented x3 and not confused HENMT Head: normocephalic and atraumatic Ears: external ears normal and TM's normal bilaterally Nose: external nose normal and No nasal discharge Face and sinus: sinuses nontender, face symmetric, no sinus tenderness and No dry mucous membranes Mouth: oral mucosae normal and moist mucous membranes Teeth and gingiva: dentition normal Throat: tonsils normal and uvula midline Eyes General: appearance normal, both eyes and all related structures Eyelids: eyelids normal Sclera: scleral abnormality (Superficial laceration, approx 3 mm, small subconjunctival hemorrhage) right Pupils: PERRL EOM: EOM intact bilaterally Other: Fluorescein exam reveals the scleral injury, but no corneal injury, and no foreign body. Neck Neck: normal visual inspection, trachea midline, No lymphadenopathy, No midline deformity and No JVD Lymphatic: No lymphedema Chest Chest: normal inspection of the chest Resp Effort & Inspection: normal respiratory effort, able to speak in complete sentences, no respiratory distress and no use of accessory muscles Auscultation: no rhonchi Back/Spine/Pelvis Cervical Spine: cervical ROM normal Skin General: no rashes or lesions noted, No jaundice and No petechiae Neuro General: alert, oriented x3, gait normal and no focal motor deficits Speech: speech normal Extrem General: full ROM Psych Appearance: well kempt Mental Status: mental status grossly normal Attitude: cooperative Thought Content: normal and suicidality Judgment: judgment good Course Course Narrative: I discussed my findings with the patient, and we have discussed the time frame for healing. Patient has been placed on antibiotic drops. We have discussed follow-up with Ophthalmology, as needed. We have also discussed the usual indications for return. Orders Ordered: Discontinued Medications Gentamicin Sulfate (Garamycin 0.3% Oph Prepack) 1 bottle MISC SEEINSTR ONE Stop: 10/10/18 03:18 Last Admin: 10/10/18 03:30 Dose: 1 bottle Vital Signs - 8 hr 10/10/18 01:41 Temperature 97.9 F Pulse Rate 88 Respiratory Rate 18 Blood Pressure [Left Arm] 166/104 H Pulse Oximetry 99 MDM - Eye Problem Medical Records Attestation: I reviewed the patient's medical records. Discharge Plan Departure Patient Disposition: Home Clinical Impression: Subconjunctival hemorrhage Qualifiers: Laterality: right Qualified Code(s): H11.31 - Conjunctival hemorrhage, right eye Abrasion of sclera of right eye Qualifiers: Encounter type: initial encounter Qualified Code(s): S05.8X1A - Other injuries of right eye and orbit, initial encounter Discharge Date/Time: 10/10/18 03:40 Interventions: ED Discharge Assessment Last Done: 10/10/18 03:39 Instructions: DI for Corneal Abrasion Activity Restrictions/Additional Instructions: You have a scratch on the side of your eye, most likely from your dog's claw. This will heal on its own. The mucus production in your eye may be from the irritation from the injury itself, but it is possible that some bacteria have gotten your eye and have begun to fester. As such, you have been started on antibiotic drops from the emergency department. Please take these 3 times a day for the next 7 days. You may follow up with your primary care physician or the personal protection specialist, as needed. Prescriptions: No Action fluticasone propion-salmeterol [Advair Diskus] 100 MCG/50 MCG blister with device 1 puff INH BID Qty: 1 RF: 12 albuterol sulfate [Proventil HFA] 90 MCG/PUFF HFA aerosol inhaler 2 puff INH Q4-6H Qty: 17 RF: 12 lidocaine 5 % adhesive patch,medicated 2 patch TOP Q24H Qty: 30 RF: 0 Referrals: [facility] [Provider Group] Laura Mcpherson PA-C [Primary Care Provider] -
== END 2018-10-10 03:40 | disposition home or self-care (01) ==
PROVIDERS: Emergency Provider Emergency Medicine; PCP Physician Assistant Medical
DX: S05.8X1A Other injuries of right eye and orbit, initial encounter (principal); H11.31 Conjunctival hemorrhage, right eye; W54.8XXA Other contact with dog, initial encounter
CPT/HCPCS: 99282

== ENCOUNTER → 2019-07-23 14:05 | Outpatient (CLI) | payer OTHER, MEDICAID, SELFPAY ==
--- NOTE | 2019-07-23 | DI.RAD.S_ITS ---
PROCEDURE: XR HUMERUS LT 2V INDICATIONS: LEFT ARM PAIN TECHNIQUE: 2 views of the humerus were acquired. COMPARISON: [facility], , XR HUMERUS LT 2V, 07/23/2018, 11:29. FINDINGS: Bones: ORIF of the left humerus is redemonstrated. Some of the proximal humeral screws appear fractured. Hardware plates are intact. There is likely non-unification of the fracture. Soft tissues: No suspicious soft tissue calcifications. IMPRESSION: Findings suspicious for non-unification of the humeral fracture; however visualization is limited by extensive overlying hardware. Dictated by: Lizette Stout M.D. on 07/23/2019 at 17:11 Approved by: Lizette Stout M.D. on 07/23/2019 at 17:13
== END ==
PROVIDERS: PCP Physician Assistant Medical
DX: M79.602 Pain in left arm (principal)
CPT/HCPCS: 73060

== ENCOUNTER → 2019-11-14 16:54 | Outpatient (CLI) | payer OTHER, MEDICAID, SELFPAY ==
--- NOTE | 2019-11-14 16:59 | DI.RAD.S_ITS ---
PROCEDURE: XR LUMBAR SPINE 2-3V INDICATIONS: CHRONIC LOW BACK PAIN TECHNIQUE: To views of the lumbar spine were acquired. COMPARISON: [facility], XR LUMBAR SPINE 2 OR 3 VIEWS, 05/30/2017, 13:11. FINDINGS: Bones: 5 [id number] vertebrae are present. There is normal bony alignment. No vertebral body compression fractures. No suspicious bony lesions. Minimal degenerative endplate changes are noted in the lower thoracic spine and at the L4-5 level. Soft tissues: Overlying bowel gas pattern is normal. No suspicious soft tissue calcifications. An IUD is noted projecting over the pelvis. IMPRESSION: No acute osseous abnormality. Mild multilevel degenerative changes. Dictated by: Edwin Duncan M.D. on 11/14/2019 at 22:03 Approved by: Edwin Duncan M.D. on 11/14/2019 at 22:05
--- NOTE | 2019-11-14 16:59 | DI.RAD.S_ITS ---
PROCEDURE: XR FOOT RT MIN 3V INDICATIONS: FOOT PAIN TECHNIQUE: 3 nonweightbearing views of the foot were acquired. COMPARISON: None. FINDINGS: Bones: No acute fractures or dislocations. No suspicious bony lesions. Small plantar and posterior calcaneal spurs are present. Soft tissues: No suspicious soft tissue calcification. IMPRESSION: No acute osseous abnormality. If the symptoms persist with conservative management, consider cross sectional imaging such as CT or MRI for further assessment. Dictated by: Edwin Duncan M.D. on 11/14/2019 at 22:05 Approved by: Edwin Duncan M.D. on 11/14/2019 at 22:06
--- NOTE | 2019-11-14 16:59 | DI.RAD.S_ITS ---
PROCEDURE: XR FOOT LT MIN 3V INDICATIONS: FOOT PAIN TECHNIQUE: 3 nonweightbearing views of the foot were acquired. COMPARISON: None. FINDINGS: Bones: No acute fractures or dislocations. Mild degenerative changes at the 1st metatarsophalangeal joint. A small lucent lesion in the 1st proximal phalanx with well-defined sclerotic borders is most likely degenerative in nature, without aggressive features. Small plantar and posterior calcaneal spurs are present. Soft tissues: No suspicious soft tissue calcification. IMPRESSION: No acute osseous abnormality. 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 Dictated by: Edwin Duncan M.D. on 11/14/2019 at 22:06 Approved by: Edwin Duncan M.D. on 11/14/2019 at 22:09
[2019-11-14 17:49] LABS: Hematocrit 40.7 % (36-46); Hemoglobin 13.7 g/dL (12.0-16.0); Mean Corpuscular HGB Conc 33.5 % (30-36); Mean Corpuscular Volume 92.5 fL (80-100); Platelet Count 256 X10^3/uL (150-400); Red Cell Distribution Width 14.2 % (11.6-14.8); White Blood Cell Count 9.2 X10^3/uL (4.5-11.0)
[2019-11-14 17:59] LABS: BUN Creatinine Ratio 7.5 (6-22); Blood Urea Nitrogen 7 mg/dL (7-17); Calcium 9.3 mg/dL (8.4-10.2); Carbon Dioxide 31 mmol/L (22-32); Chloride 100 mmol/L (98-107); Estimated Glomerular Filt Rate > 60.0 mL/min (>60); Glucose 101 mg/dL (70-100); HEMOLYSIS < 15 (0-50); Potassium 4.4 mmol/L (3.4-5.1); Sodium 137 mmol/L (137-145)
== END ==
PROVIDERS: PCP Family Medicine; Referring Provider Family Medicine; Visit Provider Family Medicine
DX: R03.0 Elevated blood-pressure reading, without diagnosis of hypertension (principal); M79.672 Pain in left foot; M79.671 Pain in right foot; M54.5 Low back pain
CPT/HCPCS: 36415; 72100; 73630; 80048; 85027

== ENCOUNTER 2020-01-29 02:59 | Emergency (ER) | payer OTHER, MEDICAID, SELFPAY ==
[2020-01-29 03:09] VITALS: BP 197/96; PULSE 104; RESP 17; TEMP 36.8; O2SAT 96; BMI 53.0
--- NOTE | 2020-01-29 03:09 | DI.RAD.S_ITS ---
PROCEDURE: XR KNEE LT 3V INDICATIONS: pain after fall TECHNIQUE: 3 views of the knee were acquired. COMPARISON: None. FINDINGS: Bones: No fractures or dislocations. No suspicious bony lesions. Soft tissues: Small joint effusion. No suspicious soft tissue calcifications. Mild prepatellar soft tissue swelling. IMPRESSION: 1. No fracture or dislocation. 2. Small knee joint effusion. 3. Mild prepatellar soft tissue swelling. Dictated by: Nilesh Mcginnis M.D. on 01/29/2020 at 9:27 Approved by: Nilesh Mcginnis M.D. on 01/29/2020 at 9:28
--- NOTE | 2020-01-29 03:09 | DI.RAD.S_ITS ---
PROCEDURE: XR HUMERUS LT 2V INDICATIONS: pain after fall TECHNIQUE: 2 views of the humerus were acquired. COMPARISON: [facility], CR, XR HUMERUS LT 2V, 07/23/2019, 14:04. FINDINGS: Bones: No acute fractures or dislocations. Old fracture with internal fixation in the humerus shaft. Humerus is partially obscured. A surgical scew proximal to the surgical plate is noted, unchanged. No suspicious bony lesions. Soft tissues: No suspicious soft tissue calcifications. IMPRESSION: No acute fracture. Old fracture with internal fixation appears unchanged. Dictated by: Nilesh Mcginnis M.D. on 01/29/2020 at 9:15 Approved by: Nilesh Mcginnis M.D. on 01/29/2020 at 9:27
--- NOTE | 2020-01-29 03:48 | ED_ITS ---
HPI - Fall General Chief Complaint: Fall Stated Complaint: Fell on previously fractured left arm today Time Seen by Provider: 01/29/20 03:05 Source: patient Mode of arrival: Wheelchair Limitations: no limitations History of Present Illness HPI Narrative: Patient is a 34-year-old female who has a prior left humerus injury requiring multiple surgeries still on restrictions with regard to her left arm because of this here for evaluation of injuries that she sustained last evening when she tripped over dog landing on her left knee and also her left arm. She has had difficulty walking secondary to pain of her left knee. She is also having pain in her left arm. Related Data Previous Rx's Medication Instructions Recorded albuterol sulfate [Proventil HFA] 2 puff INH Q4-6H #17 gm 10/08/12 fluticasone propion-salmeterol 1 puff INH BID #1 disk 10/08/12 [Advair Diskus] lidocaine 2 patch TOP Q24H #30 each 07/23/18 Allergies Allergy/AdvReac Type Severity Reaction Status Date / Time No Known Drug Allergies Allergy Verified 07/23/18 11:10 Review of Systems Constitutional Constitutional: Denies fever(s) and Denies headache(s) ENT Ears, Nose, Mouth, and Throat: Denies headache(s) Cardiovascular Cardiovascular: Denies chest pain and Denies dyspnea Respiratory Respiratory: Denies dyspnea Gastrointestinal Gastrointestinal: Denies abdominal pain, Denies nausea and Denies vomiting Genitourinary Genitourinary: Denies dysuria Genitourinary: Denies dysuria Musculoskeletal Musculoskeletal: Reports abnormal gait (Secondary to pain of left knee) Comments: Left arm and left knee pain Integumentary/Breasts Skin/Breast: Denies rash Neurologic Neurologic: Reports abnormal gait (Secondary to pain of left knee), Denies behavioral changes and Denies headache(s) Psychiatric Psychiatric: Denies behavioral changes Hematologic/Lymphatic Hematologic/Lymphatic: Denies easy bleeding and Denies easy bruising Allergic/Immunologic Allergic/Immunologic: Denies urticaria Patient History Medical History ADHD Asthma S/P ORIF (open reduction internal fixation) fracture Social History Smoking Status: Current some day smoker Smoking Status: Current some day smoker alcohol intake frequency: 0-2 drinks per day Substance Use Type: marijuana Exam Initial Vital Signs Initial Vital Signs: Vital Signs Temperature 98.3 F 01/29/20 03:09 Pulse Rate 104 H 01/29/20 03:09 Respiratory Rate 17 01/29/20 03:09 Blood Pressure 197/96 H 01/29/20 03:09 Pulse Oximetry 96 01/29/20 03:09 Const General: cooperative Limitations: mental status not altered [facility] Head: normal to inspection and normocephalic Skin Other: 2 cm abrasion over the left anterior knee. Also has contusion on the posterior aspect of the left upper arm Extrem Other: Left hip the left ankle unremarkable. Does have tenderness to palpation along the inferior aspect of the patella the left knee. She is able to flex her knee however does have some discomfort. Is able to do straight leg raise. Does have tenderness along the medial joint line. No tenderness over the hamstring t endons bilaterally. Patient able to flex and extend the left elbow. Patient has full range of motion of the left shoulder. Her left wrist is unremarkable. Course Orders Ordered: ED Orders 01/29/20 03:09 XR humerus LT 2V Stat XR knee LT 3V Stat Vital Signs Vital signs: Vital Signs - 8 hr 01/29/20 03:09 01/29/20 04:07 Temperature 98.3 F Pulse Rate 104 H 89 Respiratory Rate 17 18 Blood Pressure 197/96 H 157/83 H Pulse Oximetry 96 96 [facility] - Fall Imaging Data Extremity x-ray #1: Radiologist's Impression: No new fracture seen on x-rays of the left humerus Extremity x-ray #2: Radiologist's Impression: No acute fractures seen on x-rays the left knee [facility] Narrative Medical decision making narrative: No new fracture seen on x-rays. The discomfort in the left upper arm seems to be in the subcutaneous fat tissue or there is a contusion. I have low suspicion for quadriceps tendon or patella tendon injury and also low suspicion for major ligament injury of her left knee. Discussed all this with the patient. Do conservative treatment to include recent elevation. She was given return precautions. She expressed understanding and agreement. Discharge Plan Departure Patient Disposition: Home Clinical Impression: Contusion of arm, left, Abrasion of knee, left, Acute pain of left knee Instructions: How To Perform RICE (Rest, Ice, Compress, Elevate) Activity Restrictions/Additional Instructions: There were no fractures of the x-ray of her left knee. There were no new fractures on the x-ray of her left arm and the hardware that is in place does not appear to be disrupted because of your fall. You can walk on your left knee as tolerated. Continue follow the restrictions given to you with regard your left arm. Contact your primary provider for a follow-up Prescriptions: No Action fluticasone propion-salmeterol [Advair Diskus] 100 MCG/50 MCG blister with device 1 puff INH BID Qty: 1 RF: 12 albuterol sulfate [Proventil HFA] 90 MCG/PUFF HFA aerosol inhaler 2 puff INH Q4-6H Qty: 17 RF: 12 lidocaine 5 % adhesive patch,medicated 2 patch TOP Q24H Qty: 30 RF: 0 Referrals: Tejinder Smith DO [Primary Care Provider] -
[2020-01-29 04:07] VITALS: BP 157/83; PULSE 89; RESP 18; O2SAT 96
== END 2020-01-29 04:08 | disposition home or self-care (01) ==
PROVIDERS: Emergency Provider Emergency Medicine; PCP Family Medicine
DX: S40.022A Contusion of left upper arm, initial encounter (principal); S80.212A Abrasion, left knee, initial encounter; M25.562 Pain in left knee; W01.0XXA Fall on same level from slipping, tripping and stumbling without subsequent striking against object, initial encounter
CPT/HCPCS: 73060; 73562; 99283

== ENCOUNTER 2020-03-18 15:07 | Emergency (ER) | payer OTHER, MEDICAID, SELFPAY ==
--- NOTE | 2020-03-18 15:19 | DI.RAD.S_ITS ---
PROCEDURE: XR HUMERUS RT 2V INDICATIONS: pain after fall TECHNIQUE: 2 views of the humerus were acquired. COMPARISON: [facility], CR, XR HUMERUS LT 2V, 01/29/2020, 3:14. FINDINGS: Bones: No fractures or dislocations. No suspicious bony lesions. Soft tissues: No suspicious soft tissue calcifications. IMPRESSION: No evidence acute bony abnormality of the right humerus. Dictated by: Masood Stanley M.D. on 03/18/2020 at 15:33 Approved by: Masood Stanley M.D. on 03/18/2020 at 15:34
[2020-03-18 15:20] VITALS: BP 218/107; PULSE 98; RESP 15; TEMP 37.1; O2SAT 96; BMI 36.0
--- NOTE | 2020-03-18 16:03 | ED.GENADULT ---
HPI - General Adult General Chief complaint: Extremity Injury, Upper Stated complaint: rt upper arm injury Time Seen by Provider: 03/18/20 15:12 Source: patient Mode of arrival: Ambulatory Limitations: no limitations History of Present Illness HPI narrative: Patient is a 35-year-old female here for evaluation of right upper arm injury. Patient states she has a nonhealing humeral fracture in the left upper extremity however she is here today because her right upper extremity hurts. She states she tripped over her dog at home a couple days ago fall landing on her right arm. It hurts for her to move her arm. She is here for evaluation under recommendation primary doctor. Related Data Previous Rx's Medication Instructions Recorded albuterol sulfate [Proventil HFA] 2 puff INH Q4-6H #17 gm 10/08/12 fluticasone propion-salmeterol 1 puff INH BID #1 disk 10/08/12 [Advair Diskus] lidocaine 2 patch TOP Q24H #30 each 07/23/18 Allergies Allergy/AdvReac Type Severity Reaction Status Date / Time No Known Drug Allergies Allergy Verified 03/18/20 15:25 Review of Systems Constitutional Constitutional: Denies headache(s) ENT Ears, Nose, Mouth, and Throat: Denies headache(s) Cardiovascular Cardiovascular: Denies chest pain and Denies dyspnea Respiratory Respiratory: Denies dyspnea Gastrointestinal Gastrointestinal: Denies abdominal pain, Denies nausea and Denies vomiting Musculoskeletal Comments: Right upper extremity injury Integumentary/Breasts Skin/Breast: Denies lesions and Denies rash Neurologic Neurologic: Denies behavioral changes and Denies headache(s) Psychiatric Psychiatric: Denies behavioral changes Hematologic/Lymphatic On Anticoagulants: No Allergic/Immunologic Allergic/Immunologic: Denies urticaria Patient History Medical History ADHD Asthma S/P ORIF (open reduction internal fixation) fracture Social History Smoking Status: Current some day smoker Smoking Status: Current some day smoker alcohol intake frequency: 0-2 drinks per day Substance Use Type: marijuana Exam Initial Vital Signs Initial Vital Signs: Vital Signs Temperature 98.8 F 03/18/20 15:20 Pulse Rate 98 H 03/18/20 15:20 Respiratory Rate 15 03/18/20 15:20 Blood Pressure 218/107 H 03/18/20 15:20 Pulse Oximetry 96 03/18/20 15:20 Const General: cooperative and comfortable Limitations: mental status not altered [facility] Head: normal to inspection and normocephalic Cardio Pulses: radial pulses present on the right Skin Lesions: no lesions Rashes: no rashes Neuro Sensory Exam: no sensory deficits noted Extrem Other: Patient does not have tenderness to palpation over the AC joint. No tenderness to palpation over the biceps tendon. She does have tenderness over the deltoid and also with abduction of her arm. Course Orders Ordered: ED Orders 03/18/20 15:19 XR humerus RT 2V Stat Vital Signs Vital signs: Vital Signs - 8 hr 03/18/20 15:20 03/18/20 16:09 Temperature 98.8 F Pulse Rate 98 H 92 H Respiratory Rate 15 18 Blood Pressure 218/107 H 163/104 H Pulse Oximetry 96 98 Medical Decision Making Imaging Data Extremity x-ray #1: Radiologist's Impression: [address] [id number] ReportSigned Patient: Adenike Monae [facility]#: [id number]: 1985Acct:[id number]/Sex: 35 / FDate of Service: 03/18/20Loc: EDAccession Number: [id number] Procedure: XR humerus RT 2V Ordering Provider: Silvestre Betancourt D.O. PROCEDURE: XR HUMERUS RT 2V INDICATIONS: pain after fall TECHNIQUE: 2 views of the humerus were acquired. COMPARISON: [facility], , XR HUMERUS LT 2V, 01/29/2020, 3:14. FINDINGS: Bones: No fractures or dislocations. No suspicious bony lesions. Soft tissues: No suspicious soft tissue calcifications. IMPRESSION: No evidence acute bony abnormality of the right humerus. Dictated by: Masood Stanley M.D. on 03/18/2020 at 15:33 Approved by: Masood Stanley M.D. on 03/18/2020 at 15:34 MDM Narrative Medical decision making narrative: No fractures on the x-ray. No fevers. She does have movement of her arm however the discomfort happens when she abducts her arm. I suspect deltoid injury. Discussed this with the patient. No indication for sling. She was given return precautions. She expressed understanding and agreement. Discharge Plan Departure Patient Disposition: Home Clinical Impression: Strain of right deltoid muscle Instructions: DI for Muscle Strain Activity Restrictions/Additional Instructions: There were no fractures on the x-ray. I do suspect that you have strained your deltoid muscle on the right. You have no restrictions on your activities. Continue to take Tylenol and/or ibuprofen for any discomfort. Contact your primary provider for a follow-up. Prescriptions: No Action fluticasone propion-salmeterol [Advair Diskus] 100 MCG/50 MCG blister with device 1 puff INH BID Qty: 1 RF: 12 albuterol sulfate [Proventil HFA] 90 MCG/PUFF HFA aerosol inhaler 2 puff INH Q4-6H Qty: 17 RF: 12 lidocaine 5 % adhesive patch,medicated 2 patch TOP Q24H Qty: 30 RF: 0 Referrals: Tejinder Smith DO [Primary Care Provider] -
[2020-03-18 16:09] VITALS: BP 163/104; PULSE 92; RESP 18; O2SAT 98
== END 2020-03-18 16:10 | disposition home or self-care (01) ==
PROVIDERS: Emergency Provider Emergency Medicine; PCP Family Medicine
DX: S46.811A Strain of other muscles, fascia and tendons at shoulder and upper arm level, right arm, initial encounter (principal); W19.XXXA Unspecified fall, initial encounter
CPT/HCPCS: 73060; 99283

== ENCOUNTER → 2020-03-18 16:17 | Outpatient (CLI) | payer OTHER, MEDICAID, SELFPAY ==
[2020-03-18 17:06] LABS: Add Manual Diff / Slide Review NO; Basophils Absolute Auto 100 /uL (0-100); Basophils Percent Auto 0.8 % (0-2); Eosinophils Absolute Auto 400 /uL (0-450); Hematocrit 45.1 % (36-46); Hemoglobin 14.7 g/dL (12.0-16.0); Lymphocytes Absolute Auto 1900 /uL (1100-4500); Lymphocytes Percent Auto 18.7 % (25-40); Mean Corpuscular HGB Conc 32.7 % (30-36); Mean Corpuscular Volume 94.8 fL (80-100); Monocytes Absolute Auto 1000 /uL (0-900); Monocytes Percent Auto 9.7 % (3-14); Neutrophils Absolute Auto 6700 /uL (1500-7000); Neutrophils Percent Auto 66.8 % (50-75); Platelet Count 328 X10^3/uL (150-400); Red Blood Cell Count 4.75 X10^6/uL (4.0-5.2); Red Cell Distribution Width 14.3 % (11.6-14.8)
[2020-03-18 17:38] LABS: Hemoglobin A1C% w Est Avg Glu 5.7 % (4.0-6.0)
[2020-03-18 17:39] LABS: Alanine Aminotransferase 32 IU/L (<35); Albumin 4.3 g/dL (3.5-5.0); Albumin Globulin Ratio 1.2 (1.0-2.8); Alkaline Phosphatase 86 U/L (38-126); Aspartate Aminotransferase 34 IU/L (14-36); BUN Creatinine Ratio 12.8 (6-22); Bilirubin Total 0.4 mg/dL (0.2-1.3); Blood Urea Nitrogen 10 mg/dL (7-17); C-Reactive Protein Quant 1.7 mg/dL (<1.0); Calcium 8.9 mg/dL (8.4-10.2); Carbon Dioxide 31 mmol/L (22-32); Chloride 103 mmol/L (98-107); Cholesterol 171 mg/dL (140-199); Estimated Glomerular Filt Rate > 60.0 mL/min (>60); Globulin 3.6 g/dL (1.7-4.1); Glucose 87 mg/dL (70-100); HDL Cholesterol 45 mg/dL (40-60); HEMOLYSIS < 15 (0-50); LDL Cholesterol Calculated 86 mg/dL (<100); Potassium 4.2 mmol/L (3.4-5.1); Sodium 137 mmol/L (137-145); Total Protein 7.9 g/dL (6.3-8.2); Triglycerides 202 mg/dL (35-150)
[2020-03-18 18:08] LABS: TSH w/ Reflex to FT4 0.55 uIU/mL (0.47-4.68)
[2020-03-18 18:25] LABS: Vitamin B12 544 pg/mL (239-931)
== END ==
PROVIDERS: PCP Family Medicine; Referring Provider Family Medicine; Visit Provider Family Medicine
DX: E66.01 Morbid (severe) obesity due to excess calories (principal); R20.9 Unspecified disturbances of skin sensation
CPT/HCPCS: 36415; 80053; 80061; 82607; 83036; 84443; 85025; 86140

== ENCOUNTER 2020-05-13 16:04 | Emergency (ER) | payer OTHER, MEDICAID, SELFPAY ==
[2020-05-13 16:12] VITALS: BP 144/70; PULSE 96; RESP 22; TEMP 36.8; O2SAT 94; BMI 53.1
--- NOTE | 2020-05-13 16:23 | DI.RAD.S_ITS ---
PROCEDURE: XR CHEST 2V INDICATIONS: shortness of breath TECHNIQUE: 2 views of the chest were acquired. COMPARISON: None. FINDINGS: Surgical changes and devices: None. Lungs and pleura: Lungs are clear. No pleural effusions or pneumothorax. Mediastinum: Mediastinal contours are normal. Heart size is enlarged. Bones and chest wall: No suspicious bony abnormalities. Soft tissues appear unremarkable. IMPRESSION: No acute pulmonary process. Dictated by: Lisbet Daigle M.D. on 05/13/2020 at 16:51 Approved by: Lisbet Daigle M.D. on 05/13/2020 at 16:52
[2020-05-13 16:33] VITALS: RESP 20; O2SAT 95
--- NOTE | 2020-05-13 16:36 | PC.NURSE ---
RIVER larson declined need for IV and telemetry at this time. Pt placed on continuous SPO2
--- NOTE | 2020-05-13 16:41 | ED.SOB ---
HPI - SOB/Dyspnea <DALI Tate - Last Filed: 05/13/20 20:08> General Chief Complaint: Shortness of Breath/Dyspnea Stated Complaint: states asthma is out of control Time Seen by Provider: 05/13/20 16:08 Source: patient Mode of arrival: Family Vehicle Limitations: no limitations History of Present Illness HPI Narrative: 35yo female with a history of asthma, presents to the emergency department for an asthma exacerbation. She states she has a history of allergies. She states this week she feels like her allergies has increased which has worsened her asthma symptoms. She has Flovent, Advair, and albuterol which she takes only as needed. Starting on Sunday she has been taking her albuterol 4 times a day and started her Flovent daily. She started taking Advair yesterday. She ran out of albuterol today and states that she has continued to be wheezy. Patient states has had increased coughing and wheezing at night especially last night. Her last albuterol was at noon today, approximately 5 hours ago. She denies any history of intubation or hospital admission for asthma. She has been taking Claritin over the past few days for allergies. Patient denies any chest pain, fevers, chills, rhinorrhea, nausea, vomiting, diarrhea, or any other concerns. Related Data Previous Rx's Medication Instructions Recorded albuterol sulfate [Proventil HFA] 2 puff INH Q4-6H #17 gm 10/08/12 fluticasone propion-salmeterol 1 puff INH BID #1 disk 10/08/12 [Advair Diskus] lidocaine 2 patch TOP Q24H #30 each 07/23/18 albuterol sulfate 2 puff INHALATION Q6H PRN #8.5 g 05/13/20 albuterol sulfate 5 mg INHALATION Q6H PRN #600 ml 05/13/20 prednisone 50 mg PO DAILY 5 Days #5 tab 05/13/20 Allergies Allergy/AdvReac Type Severity Reaction Status Date / Time No Known Drug Allergies Allergy Verified 05/13/20 16:11 Review of Systems <DALI Tate - Last Filed: 05/13/20 20:08> Review of Systems Narrative: REVIEW OF SYSTEMS: GENERAL: Denies fevers. HENT: No head trauma. CARDIOVASCULAR: No chest pain or syncope. RESPIRATORY: Reports wheezing, see HPI. GASTROINTESTINAL: No nausea or vomiting. MUSCULOSKELETAL: No weakness or injury. INTEGUMENTARY: No rash. Patient History <DALI Tate - Last Filed: 05/13/20 20:08> Medical History ADHD Asthma S/P ORIF (open reduction internal fixation) fracture Social History Smoking Status: Current some day smoker Smoking Status: Current some day smoker alcohol intake frequency: 0-2 drinks per day Substance Use Type: marijuana Exam <DALI Tate - Last Filed: 05/13/20 20:08> Initial Vital Signs Initial Vital Signs: Vital Signs Temperature 98.3 F 05/13/20 16:12 Pulse Rate 96 H 05/13/20 16:12 Respiratory Rate 22 05/13/20 16:12 Blood Pressure 144/70 H 05/13/20 16:12 Pulse Oximetry 94 05/13/20 16:12 PHYSICAL EXAMINATION: GENERAL: Awake and alert. HENT: Normocephalic, atraumatic. EYES: Conjunctiva pink, sclera white, no periorbital swelling. No discharge. CHEST: Normal to inspection and without deformities. CARDIOVASCULAR: S1 and S2 sounds normal. Regular rate and rhythm, no murmurs, clicks, or bruits. RESPIRATORY: Normal respiratory rate, trachea midline, airway patent. No stridor, nasal flaring or accessory muscle use. Able to speak in full sentences. Bilateral diffuse expiratory wheezes. MUSCULOSKELETAL: Normal gait and coordination. Equal tone and mass bilaterally. EXTREMITIES: Moves all extremities. SKIN: Warm, dry, soft, appropriate color for ethnicity. No lesions, rashes, or wounds to visualized areas. NEURO: Alert and Oriented X 3. Good coordination. No ataxia or cognitive issues. PSYCH: Appropriate affect and mood. <Silvestre Betancourt DO - Last Filed: 05/14/20 06:59> Initial Vital Signs Initial Vital Signs: Vital Signs Temperature 98.3 F 05/13/20 16:12 Pulse Rate 96 H 05/13/20 16:12 Respiratory Rate 22 05/13/20 16:12 Blood Pressure 144/70 H 05/13/20 16:12 Pulse Oximetry 94 05/13/20 16:12 Course <DALI Tate - Last Filed: 05/13/20 20:08> Course Course Narrative: Patient reported significant improvement with wheezing and shortness of breath after administration of 3 DuoNebs. Reassessment revealed no expiratory wheezes. Patient remained awake and alert, talking in full sentences, states she is ready to go home. Orders Ordered: Discontinued Medications Albuterol/Ipratropium (Albuterol/Ipratropium 3 Ml Ampul) 3 ml INH NOW ONE Stop: 05/13/20 16:35 Last Admin: 05/13/20 17:22 Dose: 3 ml Documented by: TEVIN Albuterol/Ipratropium (Albuterol/Ipratropium 3 Ml Ampul) 6 ml INH NOW ONE Stop: 05/13/20 17:20 Last Admin: 05/13/20 17:22 Dose: 6 ml Documented by: TEVIN Prednisone (Prednisone 20 Mg Tablet) 60 mg PO NOW ONE Stop: 05/13/20 16:33 Last Admin: 05/13/20 16:42 Dose: 60 mg Documented by: LAYLA Vital Signs Vital signs: Vital Signs - 8 hr 05/13/20 16:12 05/13/20 16:33 05/13/20 17:22 Temperature 98.3 F Pulse Rate 96 H 88 Respiratory Rate 22 20 18 Blood Pressure 144/70 H Pulse Oximetry 94 95 96 05/13/20 18:19 Temperature Pulse Rate 105 H Respiratory Rate 18 Blood Pressure 159/79 H Pulse Oximetry 97 <Silvestre Betancourt DO - Last Filed: 05/14/20 06:59> Orders Ordered: Discontinued Medications Albuterol/Ipratropium (Albuterol/Ipratropium 3 Ml Ampul) 3 ml INH NOW ONE Stop: 05/13/20 16:35 Last Admin: 05/13/20 17:22 Dose: 3 ml Documented by: TEVIN Albuterol/Ipratropium (Albuterol/Ipratropium 3 Ml Ampul) 6 ml INH NOW ONE Stop: 05/13/20 17:20 Last Admin: 05/13/20 17:22 Dose: 6 ml Documented by: TEVIN Prednisone (Prednisone 20 Mg Tablet) 60 mg PO NOW ONE Stop: 05/13/20 16:33 Last Admin: 05/13/20 16:42 Dose: 60 mg Documented by: [email or web address] Vital Signs Vital signs: Vital Signs - 8 hr 05/13/20 16:12 05/13/20 16:33 05/13/20 17:22 Temperature 98.3 F Pulse Rate 96 H 88 Respiratory Rate 22 20 18 Blood Pressure 144/70 H Pulse Oximetry 94 95 96 05/13/20 18:19 Temperature Pulse Rate 105 H Respiratory Rate 18 Blood Pressure 159/79 H Pulse Oximetry 97 [facility] - SOB/Dyspnea <DALI Tate - Last Filed: 05/13/20 20:08> Medical Records Attestation: I reviewed the patient's medical records. Lab Data Attestation: I reviewed the patient's lab results. Labs: Lab Results 05/13/20 Range/Units 16:30 SARS-CoV-2 (PCR) Negative (Negative) Imaging Data Chest x-ray: Radiologist's Impression: [address] [id number] ReportSigned Patient: Adenike Monae [facility]#: [id number]: 1985Acct:[id number]/Sex: 35 / FDate of Service: 05/13/20Loc: EDAccession Number: [id number] Procedure: XR chest 2V Ordering Provider: Debbi Rivas PROCEDURE: XR CHEST 2V INDICATIONS: shortness of breath TECHNIQUE: 2 views of the chest were acquired. COMPARISON: None. FINDINGS: Surgical changes and devices: None. Lungs and pleura: Lungs are clear. No pleural effusions or pneumothorax. Mediastinum: Mediastinal contours are normal. Heart size is enlarged. Bones and chest wall: No suspicious bony abnormalities. Soft tissues appear unremarkable. IMPRESSION: No acute pulmonary process. Dictated by: Lisbet Daigle M.D. on 05/13/2020 at 16:51 Approved by: Lisbet Daigle M.D. on 05/13/2020 at 16:52 ECG Data Interpretation: 1619: Sinus rhythm, rate 100, MI interval 148, QTC 456. No ST elevation or ST depression. T-wave inversion noted in V1. No ectopy. EKG also viewed by Dr. betancourt per protocol. [facility] Narrative Medical decision making narrative: History and examination reveal a 35-year-old with a history of asthma currently and going an acute asthma exacerbation. I believe this is most likely due to allergies given the description of worsening symptoms over the past week, history of allergies, and reports that her allergies have been worse recently. Patient significantly improved Administration of 3 of DuoNebs and prednisone, all wheezing was resolved. Less concern for acute infection given lack of fever or other symptoms such as rhinorrhea. COVID-19 test is negative, x-rays negative for any signs of pneumonia. Lungs were clear post DuoNeb administration. Patient was placed on a prednisone taper. Discussed the importance of increasing maintenance medication. She was encouraged to take her Advair morning and night for the next week until instructed otherwise by her primary care provider. Albuterol inhaler and nebulizer were refilled. She is encouraged to continue taking Claritin daily to help with histamine release that worsens asthma during patient's allergies. Return precautions given for new or worsening symptoms. She is hemodynamically stable, non hypoxic, talking full sentences upon discharge. Patient agreed to plan of care verbalized understanding. <Silvestre Betancourt, DO - Last Filed: 05/14/20 06:59> Lab Data Labs: Lab Results 05/13/20 Range/Units 16:30 SARS-CoV-2 (PCR) Negative (Negative) Discharge Plan Departure Patient Disposition: Home Clinical Impression: Asthma exacerbation Qualifiers: Asthma severity: moderate Asthma persistence: persistent Qualified Code(s): J45.41 - Moderate persistent asthma with (acute) exacerbation Instructions: DI for Asthma -- Adult Activity Restrictions/Additional Instructions: Thank you for entrusting me with your care today. As discussed, your x-rays negative for any concerning findings. I suspect your asthma exacerbation was most likely caused from her allergies. I prescribed you prednisone, start taking this tomorrow. I have refilled your albuterol inhaler and your albuterol nebulizer treatment, uses every 4-6 hours as needed for wheezing and shortness of breath. These prescriptions were sent to [facility] in [place]. Please take your Advair morning and night, as well as a daily antihistamine such as Claritin for the next 1-2 weeks until you are able to see your primary care provider and are instructed otherwise. Return emergency department for any new or worsening symptoms. Prescriptions: New prednisone 50 mg tablet 50 mg PO DAILY 5 Days Qty: 5 RF: 0 albuterol sulfate 90 mcg/actuation HFA aerosol inhaler 2 puff inhalation Q6H PRN (Reason: shortness of breath or wheezing) Qty: 8.5 RF: 0 albuterol sulfate 5 mg/mL solution for nebulization 5 mg inhalation Q6H PRN (Reason: shortness of breath or wheezing) Qty: 600 RF: 0 No Action fluticasone propion-salmeterol [Advair Diskus] 100 MCG/50 MCG blister with device 1 puff INH BID Qty: 1 RF: 12 albuterol sulfate [Proventil HFA] 90 MCG/PUFF HFA aerosol inhaler 2 puff INH Q4-6H Qty: 17 RF: 12 lidocaine 5 % adhesive patch,medicated 2 patch TOP Q24H Qty: 30 RF: 0 Referrals: Tejinder Smith DO [Primary Care Provider] - <Silvestre Betancourt DO - Last Filed: 05/14/20 06:59> Cosign ED Attending Cosignature Attestation: Dr Betancourt Co-Sign Statement: I was available for consultation during this patient's emergency department visit. This chart is signed by myself for administrative purposes only. I did not have direct contact with this patient during this visit. They were seen independently by the APC.
[2020-05-13] MEDS: predniSONE 20 MG TABLET 60 MG PO (16:42)
[2020-05-13 16:51] LABS: COVID19 -Nasal RAPID Negative (Negative)
[2020-05-13 17:22] VITALS: PULSE 88; RESP 18; O2SAT 96
[2020-05-13] MEDS: ALBUTEROL/IPRATROPIUM 3 ML AMPUL INH (17:22)
[2020-05-13] MEDS: ALBUTEROL/IPRATROPIUM 3 ML AMPUL 6 ML INH (17:22)
[2020-05-13 18:19] VITALS: BP 159/79; PULSE 105; RESP 18; O2SAT 97
== END 2020-05-13 18:20 | disposition home or self-care (01) ==
PROVIDERS: Emergency Provider Nurse Practitioner; PCP Family Medicine
DX: J45.41 Moderate persistent asthma with (acute) exacerbation (principal); Z20.822 Contact with and (suspected) exposure to COVID-19; R06.02 Shortness of breath
CPT/HCPCS: 71046; 87635; 93005; 93010; 94640; 99284; C9803

== ENCOUNTER 2020-06-03 20:53 | Emergency (ER) | payer OTHER, MEDICAID, SELFPAY ==
[2020-06-03] VITALS (9 sets, daily range): BP systolic 153–174; BP diastolic 104–113; PULSE 94–103; RESP 16–24; TEMP 36.7; O2SAT 93–99; BMI 53.1
[2020-06-03] MEDS: ALBUTEROL HFA MDI 60 PUFF/8 GM INHALER INH (21:10)
--- NOTE | 2020-06-03 21:13 | ED.SOB ---
HPI - SOB/Dyspnea General Chief Complaint: Shortness of Breath/Dyspnea Stated Complaint: asthma issues Time Seen by Provider: 06/03/20 21:02 Source: patient Mode of arrival: Ambulatory Limitations: no limitations History of Present Illness HPI Narrative: Patient is a 35-year-old female with history of asthma presenting with asthma exacerbation. She has been using her albuterol inhaler all day without any relief. She is diaphoretic and obviously tight. No fever or chills. She has some chest tightness. No productive cough. No nausea vomiting or abdominal pain. He has obvious conversational dyspnea. MD Complaint: shortness of breath Related Data Previous Rx's Medication Instructions Recorded albuterol sulfate [Proventil HFA] 2 puff INH Q4-6H #17 gm 10/08/12 fluticasone propion-salmeterol 1 puff INH BID #1 disk 10/08/12 [Advair Diskus] lidocaine 2 patch TOP Q24H #30 each 07/23/18 albuterol sulfate 2 puff INHALATION Q6H PRN #8.5 g 05/13/20 albuterol sulfate 5 mg INHALATION Q6H PRN #600 ml 05/13/20 prednisone 10 mg PO DAILY #30 tab 06/03/20 Allergies Allergy/AdvReac Type Severity Reaction Status Date / Time No Known Drug Allergies Allergy Verified 05/13/20 16:11 Review of Systems Review of Systems Narrative: GENERAL: Denies chills, fatigue, malaise, fever, sweats, travel HEENT: Denies sinus pain, ear pain, sore throat, difficulty swallowing, neck pain RESPIRATORY: See HPI CARDIOVASCULAR: Denies chest pain, palpitations, orthopnea, edema GASTROINTESTINAL: Denies nausea, vomiting, abdominal pain, diarrhea, constipation, melena. : Denies dysuria, frequency, incontinence, hematuria, urinary retention, flank pain. MUSCULOSKELETAL: Denies weakness, joint pain, or bony pain SKIN: No rash, no erythema, no pruritus NEUROLOGIC: Denies weakness, dizziness, headache, numbness, change in speech, confusion PSYCHIATRIC: No concerning psychosocial issues. 12 point review of systems is negative except for those stated above and HPI Patient History Medical History ADHD Asthma S/P ORIF (open reduction internal fixation) fracture Social History Smoking Status: Current some day smoker Smoking Status: Current some day smoker alcohol intake frequency: 0-2 drinks per day Substance Use Type: marijuana Exam Initial Vital Signs Initial Vital Signs: Vital Signs Temperature 98.1 F 06/03/20 21:07 Pulse Rate 101 H 06/03/20 21:07 Respiratory Rate 24 06/03/20 21:07 Blood Pressure 153/113 H 06/03/20 21:07 Pulse Oximetry 97 06/03/20 21:07 GENERAL: 35-year-old female BMI 53 with conversational dyspnea HEENT: Head atraumatic,EOMI, pupils reactive, face symmetric, moist mucous membranes CARDIOVASCULAR: Regular rate and rhythm without murmurs, rubs or gallops. RESPIRATORY: Wheezing bilateral with decreased breath sounds bilaterally ABDOMEN: Soft, nontender. Normoactive bowel sounds all 4 quadrants. No guarding or rebound. EXTREMITIES: Normal range of motion, no clubbing or edema. Neurovascularly intact NEUROLOGICAL: Alert and oriented x4.Normal gait and speech. Cranial nerves II through XII grossly intact. SKIN: Warm, dry, no laceration, no petechiae, no rashes or lesions. Course Orders Ordered: ED Orders 06/03/20 21:01 COVID19 -Nasal swab/Pre-Proc Stat 06/03/20 21:14 XR chest 1V Stat EKG-12 Lead Stat 06/03/20 21:22 Complete Blood Count AUTO DIFF Stat Comprehensive Metabolic Panel Stat NT-proBNP (BNP-Adult 18+) Stat Troponin & CK Cardiac Panel Stat Discontinued Medications Albuterol (Albuterol Hfa Mdi 60 Puff/8 Gm Inhaler) 2 puff INH NOW ONE Stop: 06/03/20 21:05 Last Admin: 06/03/20 21:10 Dose: 2 puff Documented by: RIMA Albuterol (Albuterol 2.5 Mg/3 Ml Neb (Adult)) 2.5 mg INH NOW ONE Stop: 06/03/20 22:24 Last Admin: 06/03/20 22:29 Dose: 2.5 mg Documented by: MARGILENMARY Albuterol (Albuterol 2.5 Mg/3 Ml Neb (Adult)) 2.5 mg INH NOW ONE Stop: 06/03/20 23:21 Last Admin: 06/03/20 23:22 Dose: 2.5 mg Documented by: NOE Albuterol/Ipratropium (Albuterol/Ipratropium 3 Ml Ampul) 3 ml INH NOW ONE Stop: 06/03/20 21:16 Last Admin: 06/03/20 21:37 Dose: 3 ml Documented by: RIMA Dexamethasone (Dexamethasone 10 Mg/Ml Vial) 10 mg IV NOW ONE Stop: 06/03/20 21:16 Last Admin: 06/03/20 21:29 Dose: 10 mg Documented by: NOE Vital Signs Vital signs: Vital Signs - 8 hr 06/03/20 21:07 06/03/20 21:10 06/03/20 21:37 Temperature 98.1 F Pulse Rate 101 H 96 H 94 H Respiratory Rate 24 22 20 Blood Pressure 153/113 H Pulse Oximetry 97 96 96 06/03/20 22:23 06/03/20 22:27 06/03/20 22:29 Temperature Pulse Rate 103 H 103 H 95 H Respiratory Rate 16 Blood Pressure 174/104 H Pulse Oximetry 93 95 97 06/03/20 22:30 06/03/20 23:00 06/03/20 23:30 Temperature Pulse Rate 101 H 102 H 97 H Respiratory Rate Blood Pressure Pulse Oximetry 96 93 99 MDM - SOB/Dyspnea Lab Data Attestation: I reviewed the patient's lab results. Result diagrams: 06/03/20 21:22 06/03/20 21:22 Labs: Lab Results 06/03/20 06/03/20 06/03/20 Range/Units 21:01 21:22 21:22 WBC 10.5 (4.5-11.0) X10^3/uL RBC 4.40 (4.0-5.2) X10^6/uL Hgb 13.9 (12.0-16.0) g/dL Hct 41.5 (36-46) % MCV 94.2 (80-100) fL MCH 31.5 (26-34) PG MCHC 33.4 (30-36) % RDW 14.2 (11.6-14.8) % Plt Count 282 (150-400) X10^3/uL Neut % (Auto) 62.5 (50-75) % Lymph % (Auto) 21.6 L (25-40) % [place] % (Auto) 7.6 (3-14) % Eos % (Auto) 7.0 H (2-4) % Baso % (Auto) 1.3 (0-2) % Neut # (Auto) 6600 (3201-3897) /uL Lymph # (Auto) 2300 (2159-3090) /uL [place] # (Auto) 800 (0-900) /uL Eos # (Auto) 700 H (0-450) /uL Baso # (Auto) 100 (0-100) /uL Sodium 138 (137-145) mmol/L Potassium 3.9 (3.4-5.1) mmol/L Chloride 103 (98-107) mmol/L Carbon Dioxide 26 (22-32) mmol/L BUN 11 (7-17) mg/dL Creatinine 0.81 (0.52-1.04) mg/dL Estimated GFR > 60.0 (>60) mL/min BUN/Creatinine Ratio 13.6 (6-22) Glucose 95 (70-100) mg/dL Calcium 9.4 (8.4-10.2) mg/dL Total Bilirubin 0.4 (0.2-1.3) mg/dL AST 37 H (14-36) IU/L ALT 35 H (<35) IU/L Alkaline Phosphatase 105 (38-126) U/L Total Creatine Kinase 181 H (30-135) U/L CK-MB (CK-2) 1.94 (<2.37) ng/mL CK-MB (CK-2) Rel Index 1.1 L (1.5-5.0) % Troponin I < 0.012 (0.01-0.034) ng/mL NT-Pro-B Natriuret Pep 75 (<125) pg/mL Total Protein 7.5 (6.3-8.2) g/dL Albumin 4.1 (3.5-5.0) g/dL Globulin 3.4 (1.7-4.1) g/dL Albumin/Globulin Ratio 1.2 (1.0-2.8) SARS-CoV-2 (PCR) Negative (Negative) Imaging Data Chest x-ray: Radiologist's Impression: PROCEDURE: XR CHEST 1V INDICATIONS: sob TECHNIQUE: One view of the chest was acquired. COMPARISON: Merged With [facility], CR, XR CHEST 2V, 05/13/2020, 16:43. FINDINGS: Surgical changes and devices: None. Lungs and pleura: There are medial right infrahilar opacities consistent with consolidation or atelectasis. There is pulmonary vascular prominence suggestive of mild edema. No pleural effusions or pneumothorax. Mediastinum: Mediastinal contours appear unchanged. Heart size is enlarged. Bones and chest wall: No suspicious bony lesions. Overlying soft tissues appear unremarkable. IMPRESSION: 1. Right infrahilar opacities consistent with atelectasis or consolidation. 2. Mild pulmonary vascular prominence suggestive of mild edema. Dictated by: Odilon Manzanares M.D. on 06/03/2020 at 22:11 Approved by: Odilon Manzanares M.D. on 06/03/2020 at 22:12 ECG Data Attestation: I personally reviewed and interpreted this ECG as follows: Prior ECG tracings: available for review Interpretation: Normal sinus rhythm rate 98 p.r. interval 148 QRS [address] changes no T-wave inversions similar to previous EKG MDM Narrative Medical decision making narrative: Patient initially given albuterol puff inhaler rapid COVID came back negative and she was given DuoNeb along with dexamethasone he. She started to have increased breath sounds knee. She is improving with albuterol she has required a couple of treatments in the ED but is after re-evaluation she has definite improvement and increased breath sounds. At this time does not meet admission criteria. Her oxygen level is remains well above 90. She is given prescription for prednisone. I suspect that she will need a long taper. She says that usually works for her as well. Discharge Plan Departure Patient Disposition: Home Clinical Impression: Asthma with exacerbation Qualifiers: Asthma severity: moderate Asthma persistence: persistent Qualified Code(s): J45.41 - Moderate persistent asthma with (acute) exacerbation Instructions: DI for Asthma -- Adult Activity Restrictions/Additional Instructions: *You have been diagnosed with asthma exacerbation *What to do: At this time you are having an asthma exacerbation hopefully steroids will kick in and he will start to feel much better. *Continue to take medications as directed Prednisone 40 mg for 3 days, 30 mg for 3 days, 20 mg for 3 days, 10 mg for 3 days, start this tomorrow-->SENT TO [facility] Albuterol 1-2 puffs every 4 hours if needed *Follow up with your primary care provider in 2-3 days *Return to ER if you should have increasing shortness of breath, fever, chest pain or any new, worsening or concerning symptoms Prescriptions: New prednisone 10 mg tablet 10 mg PO DAILY Qty: 30 RF: 0 No Action fluticasone propion-salmeterol [Advair Diskus] 100 MCG/50 MCG blister with device 1 puff INH BID Qty: 1 RF: 12 albuterol sulfate [Proventil HFA] 90 MCG/PUFF HFA aerosol inhaler 2 puff INH Q4-6H Qty: 17 RF: 12 albuterol sulfate 90 mcg/actuation HFA aerosol inhaler 2 puff inhalation Q6H PRN (Reason: shortness of breath or wheezing) Qty: 8.5 RF: 0 albuterol sulfate 5 mg/mL solution for nebulization 5 mg inhalation Q6H PRN (Reason: shortness of breath or wheezing) Qty: 600 RF: 0 lidocaine 5 % adhesive patch,medicated 2 patch TOP Q24H Qty: 30 RF: 0 Referrals: Tejinder Smith DO [Primary Care Provider] -
[2020-06-03 21:20] LABS: COVID19 -Nasal RAPID Negative (Negative)
[2020-06-03] MEDS: DEXAMETHASONE 10 MG/ML VIAL IV (21:29)
[2020-06-03 21:37] LABS: Add Manual Diff / Slide Review NO; Basophils Absolute Auto 100 /uL (0-100); Basophils Percent Auto 1.3 % (0-2); Eosinophils Absolute Auto 700 /uL (0-450); Hematocrit 41.5 % (36-46); Hemoglobin 13.9 g/dL (12.0-16.0); Lymphocytes Absolute Auto 2300 /uL (1100-4500); Lymphocytes Percent Auto 21.6 % (25-40); Mean Corpuscular HGB Conc 33.4 % (30-36); Mean Corpuscular Hemoglobin 31.5 PG (26-34); Mean Corpuscular Volume 94.2 fL (80-100); Monocytes Absolute Auto 800 /uL (0-900); Monocytes Percent Auto 7.6 % (3-14); Neutrophils Absolute Auto 6600 /uL (1500-7000); Neutrophils Percent Auto 62.5 % (50-75); Platelet Count 282 X10^3/uL (150-400); Red Cell Distribution Width 14.2 % (11.6-14.8); White Blood Cell Count 10.5 X10^3/uL (4.5-11.0)
[2020-06-03] MEDS: ALBUTEROL/IPRATROPIUM 3 ML AMPUL INH (21:37)
[2020-06-03 21:42] LABS: Alanine Aminotransferase 35 IU/L (<35); Albumin 4.1 g/dL (3.5-5.0); Albumin Globulin Ratio 1.2 (1.0-2.8); Alkaline Phosphatase 105 U/L (38-126); Aspartate Aminotransferase 37 IU/L (14-36); BUN Creatinine Ratio 13.6 (6-22); Bilirubin Total 0.4 mg/dL (0.2-1.3); Blood Urea Nitrogen 11 mg/dL (7-17); Calcium 9.4 mg/dL (8.4-10.2); Carbon Dioxide 26 mmol/L (22-32); Chloride 103 mmol/L (98-107); Creatine Kinase 181 U/L (30-135); Estimated Glomerular Filt Rate > 60.0 mL/min (>60); Globulin 3.4 g/dL (1.7-4.1); Glucose 95 mg/dL (70-100); HEMOLYSIS 16 (0-50); Potassium 3.9 mmol/L (3.4-5.1); Sodium 138 mmol/L (137-145); Total Protein 7.5 g/dL (6.3-8.2)
[2020-06-03 21:53] LABS: NT-proBNP (BNP-Adult 18+) 75 pg/mL (<125); Troponin I < 0.012 ng/mL (0.01-0.034)
[2020-06-03 21:56] LABS: CKMB % Relative Index 1.1 % (1.5-5.0); Creatine Kinase MB 1.94 ng/mL (<2.37)
[2020-06-03] MEDS: ALBUTEROL 2.5 MG/3 ML NEB (ADULT) INH ×2 (22:29→23:22)
== END 2020-06-03 23:53 | disposition home or self-care (01) ==
PROVIDERS: Emergency Provider Emergency Medicine; PCP Family Medicine
DX: J45.41 Moderate persistent asthma with (acute) exacerbation (principal)
CPT/HCPCS: 36415; 71045; 80053; 82550; 82553; 83880; 84484; 85025; 87635; 93005; 94150; 94640; 96374; 99284; C9803; A9270; J1100; J7613

== ENCOUNTER 2020-11-01 18:54 | Emergency (ER) | payer OTHER, MEDICAID, SELFPAY ==
[2020-11-01 19:15] VITALS: BP 145/65; PULSE 108; RESP 22; TEMP 36.4; O2SAT 99
--- NOTE | 2020-11-01 19:18 | ED_ITS ---
HPI - Eye Problem <DAIL Eastman - Last Filed: 11/01/20 21:02> General Chief complaint: Eye Problems Stated complaint: contact stuck in left eye Time Seen by Provider: 11/01/20 19:17 Source: patient Mode of arrival: Ambulatory History of Present Illness HPI Narrative: 35-year-old female presents to the ED with left eye pain for 1 week. Patient reports she has a soft contact stuck in her left eye and has been unable to remove it. She denies photophobia but does complain of blurry vision because her eye is tearing and the lens is stuck. She denies any fever, any abnormal discharge from the eye, or any visual changes. She complains of pain 8 or 9/10 as she has been trying to get her contact out for many hours. Related Data Previous Rx's Medication Instructions Recorded albuterol sulfate 90 mcg/actuation 2 puff INH Q4-6H #17 gm 10/08/12 aerosol inhaler (Proventil HFA) fluticasone 100 mcg-salmeterol 50 1 puff INH BID #1 disk 10/08/12 mcg/dose blistr powdr for inhalation (Advair Diskus) lidocaine 5 % topical patch 2 patch TOP Q24H #30 each 07/23/18 albuterol sulfate 5 mg/mL(0.5 %) 5 mg INHALATION Q6H PRN #600 ml 05/13/20 solution for nebulization albuterol sulfate 90 mcg/actuation 2 puff INHALATION Q6H PRN #8.5 g 05/13/20 aerosol inhaler prednisone 10 mg tablet 10 mg PO DAILY #30 tab 06/03/20 hydrocodone 5 mg-acetaminophen 325 1 - 2 tab PO Q6HR PRN #10 tab 11/01/20 mg tablet ofloxacin 0.3 % eye drops 2 drp EYE-LEFT QID 7 Days #5 ml 11/01/20 Allergies Allergy/AdvReac Type Severity Reaction Status Date / Time No Known Drug Allergies Allergy Verified 05/13/20 16:11 Review of Systems <DALI Eastman - Last Filed: 11/01/20 21:02> Review of Systems Narrative: General: denies fever, chills Head/Neck: denies headache, neck pain Eyes: denies visual changes, left eye pain, +tearing, Vision is blurry at this time, Denies photophobia Cardio: denies chest pain, palpitations Respiratory: denies shortness of breath, cough GI: denies abdominal pain, nausea, vomiting, or diarrhea : denies dysuria, hematuria MSK: denies joint pain, muscle weakness Skin: denies rash, itching Neuro: denies numbness, tingling Patient History <DALI Eastman - Last Filed: 11/01/20 21:02> Medical History ADHD Asthma Surgical History S/P ORIF (open reduction internal fixation) fracture Social History Smoking Status: Current some day smoker Smoking Status: Current some day smoker alcohol intake frequency: 0-2 drinks per day Substance Use Type: marijuana Exam <DALI Eastman - Last Filed: 11/01/20 21:02> Narrative Exam Narrative: Independently reviewed vitals signs and nursing notes. General: Awake, alert, nontoxic, no cardiorespiratory distress Head/Neck: Atraumatic, neck full range of motion Eyes: EOMI, left conjunctiva normal, left sclera injected, soft contact lens visible on cornea unable to disrupt corner of lens after copious irrigation with saline. Nose: nares patent, no rhinorrhea Mouth/Throat: moist mucus membranes, posterior pharynx normal, no oral lesions Cardio: Regular rate and rhythm, no peripheral edema Respiratory: respirations unlabored without wheezing, stridor, or rales. No retractions. GI: Abdomen soft, nontender MSK: Moves all extremities, neurovascularly intact Skin: Normal capillary refill, no rash Neuro: Normal speech and cognition, normal gait Initial Vital Signs Initial Vital Signs: Vital Signs Temperature 97.6 F 11/01/20 19:15 Pulse Rate 108 H 11/01/20 19:15 Respiratory Rate 22 11/01/20 19:15 Blood Pressure 145/65 H 11/01/20 19:15 Pulse Oximetry 99 11/01/20 19:15 <Tarah Plunkett DO - Last Filed: 11/01/20 21:48> Initial Vital Signs Initial Vital Signs: Vital Signs Temperature 97.6 F 11/01/20 19:15 Pulse Rate 108 H 11/01/20 19:15 Respiratory Rate 22 11/01/20 19:15 Blood Pressure 145/65 H 11/01/20 19:15 Pulse Oximetry 99 11/01/20 19:15 Course <DALI Eastman - Last Filed: 11/01/20 21:02> Orders Ordered: Discontinued Medications Hydrocodone Bitart/Acetaminophen (Hydrocodone/Acet 5/325 Prepack) 1 bottle MISC SEEINSTR ONE Stop: 11/01/20 20:43 Last Admin: 11/01/20 20:53 Dose: 1 bottle Documented by: GERARDO Erythromycin (Erythromycin Ophth 1 Gm Oint) 1 applic EYE-LEFT NOW ONE Stop: 11/01/20 19:18 Last Admin: 11/01/20 19:58 Dose: 1 applic Documented by: PEREZ Fluorescein Sodium (Fluorescein 1 Mg Strip) 1 mg EYE-LEFT NOW ONE Stop: 11/01/20 20:09 Last Admin: 11/01/20 20:44 Dose: 1 mg Documented by: PEREZ Proparacaine HCl (Proparacaine 0.5% Ophth Joya) 1 drops EYE-LEFT NOW ONE Stop: 11/01/20 19:04 Last Admin: 11/01/20 19:58 Dose: 1 drops Documented by: PEREZ Vital Signs Vital signs: Vital Signs - 8 hr 11/01/20 19:15 Temperature 97.6 F Pulse Rate 108 H Respiratory Rate 22 Blood Pressure 145/65 H Pulse Oximetry 99 <Tarah Plunkett DO - Last Filed: 11/01/20 21:48> Orders Ordered: Discontinued Medications Hydrocodone Bitart/Acetaminophen (Hydrocodone/Acet 5/325 Prepack) 1 bottle MISC SEEINSTR ONE Stop: 11/01/20 20:43 Last Admin: 11/01/20 20:53 Dose: 1 bottle Documented by: GERARDO Erythromycin (Erythromycin Ophth 1 Gm Oint) 1 applic EYE-LEFT NOW ONE Stop: 11/01/20 19:18 Last Admin: 11/01/20 19:58 Dose: 1 applic Documented by: PEREZ Fluorescein Sodium (Fluorescein 1 Mg Strip) 1 mg EYE-LEFT NOW ONE Stop: 11/01/20 20:09 Last Admin: 11/01/20 20:44 Dose: 1 mg Documented by: PEREZ Proparacaine HCl (Proparacaine 0.5% Ophth Joya) 1 drops EYE-LEFT NOW ONE Stop: 11/01/20 19:04 Last Admin: 11/01/20 19:58 Dose: 1 drops Documented by: PEREZ Vital Signs Vital signs: Vital Signs - 8 hr 11/01/20 19:15 Temperature 97.6 F Pulse Rate 108 H Respiratory Rate 22 Blood Pressure 145/65 H Pulse Oximetry 99 [facility] - Eye Problem <Michelle DALI Mckeon - Last Filed: 11/01/20 21:02> [facility] Narrative Medical decision making narrative: 35-year-old female presents to the ED for left eye pain with complaint of soft contact lens stuck in eye. After copious irrigation with normal saline and proparacaine drops, multiple attempts were made to remove contact lens without success. Consulted Dr. Henry Rahman from Ophthalmology at [facility] for recommendations. He suggested to use proparacaine drops and copious irrigation and attempt to removal as we did. Since we were unsuccessful removing lens she has been referred to Ophthalmology here in [facility] for an appointment 1st thing tomorrow morning and started on ofloxacin drops for prophylaxis. Concern for corneal abrasion or ulcer. She was prescribed Vicodin pack for pain, and given diluted proparacaine drops 1-2 drops every 30-60 minutes for a maximum of 24 hours. Her vital signs were within normal limits today. Patient is appropriate and amenable to discharge home with pain control Vital signs are stable on repeat examination is unremarkable. Patient has been informed of results. Patient has been given strict return to ER precautions for any new or worsening symptoms. Patient understands to follow up closely with Ophthalmology as instructed. Patient understands plan and agrees to discharge home. All questions and concerns answered at this time. <Tarah Plunkett DO - Last Filed: 11/01/20 21:48> [facility] Narrative Medical decision making narrative: 35-year-old female presents to the ED for left eye pain with complaint of soft contact lens stuck in eye. After copious irrigation with normal saline and proparacaine drops, multiple attempts were made to remove contact lens without success. Consulted Dr. Henry Rahman from Ophthalmology at [facility] for recommendations. He suggested to use proparacaine drops and copious irrigation and attempt to removal as we did. Since we were unsuccessful removing lens she has been referred to Ophthalmology here in town for an appointment 1st thing tomorrow morning and started on ofloxacin drops for prophylaxis. Concern for corneal abrasion or ulcer. She was prescribed Vicodin pack for pain, and given diluted proparacaine drops 1-2 drops every 30-60 minutes for a maximum of 24 hours. Her vital signs were within normal limits today. Patient is appropriate and amenable to discharge home with pain control Vital signs are stable on repeat examination is unremarkable. Patient has been informed of results. Patient has been given strict return to ER precautions for any new or worsening symptoms. Patient understands to follow up closely with Ophthalmology as instructed. Patient understands plan and agrees to discharge home. All questions and concerns answered at this time. GENESIS I have asked to get involved with patient by midlevel. After discussing case with Ophthalmology it was determined to be more aggressive in try and get contact out. It has been in there for 1 week she states that she just got busy and for got about it. She says that she was able to see out of it yesterday and this morning and not in till she started messing with it did it become more painful and irritated. My attempt with gauze, fingers and Q-tips were unsuccessful. I did stain the eye with fluorescein there is dye uptake but I believe it to be over the contact lens. The eyeball itself now seems to be becoming really irritated and getting under the edge of the contact. At this time I really despite multiple attempts tries and modalities unable to get contact out. She has been given multiple drops of proparacaine. I have diluted proparacaine for her about 3-4 mL in a 1-10 ratio. She is instructed to give 1-2 drops every 30-60 minutes for no more than 24 hours. She understands that it is imperative that she follow up with Ophthalmology 1st thing tomorrow. She is also given pain medication and antibiotic drops. Discharge Plan Departure Patient Disposition: Home Clinical Impression: Contact lens stuck Instructions: Corneal Abrasion Activity Restrictions/Additional Instructions: *You have been diagnosed with a soft contact lens stuck in your eye. We were unable to remove the contact lens as you know. You may use the diluted proparacaine drops (numbing drops) 1-2 drops every 30-60 minutes for no longer than 24 hours total. Please see 1 of the ophthalmologists below tomorrow or as soon as possible. Start taking the ofloxacin drops as soon as you get them from the pharmacy. One or 2 drops every 6 hours for 1 week. Please start these as soon as possible. You can take Vicodin and ibuprofen for pain. *What to do: *Please continue to take your regular medications as directed. [x ] New medication prescriptions sent to your pharmacy: [facility] in [place] [ ] New medication written as a paper prescription [ ] No new medications given *Please follow up with your primary care provider in 2-3 days, call for an appointment. Let them know you were seen in the Emergency Department and that we ask that you be seen in follow up. We will electronically transmit a record of today's note if your PCP is in our system *If you do not have a primary care provider please contact the [facility] Resource line at [phone]. They will ask some questions about your medical history and help get you set up with a doctor in the community. *Return to Emergency Department if you should have any new, worsening or concerning symptoms, such as [fever greater than 101F, chills, worsening pain, persistent vomiting or other bothersome symptoms] Prescriptions: New ofloxacin 0.3 % drops 2 drp EYE-LEFT QID 7 Days Qty: 5 RF: 0 hydrocodone-acetaminophen 5-325 mg tablet 1 - 2 tab PO Q6HR PRN (Reason: pain) Qty: 10 RF: 0 No Action fluticasone propion-salmeterol [Advair Diskus] 100 MCG/50 MCG blister with device 1 puff INH BID Qty: 1 RF: 12 albuterol sulfate [Proventil HFA] 90 MCG/PUFF HFA aerosol inhaler 2 puff INH Q4-6H Qty: 17 RF: 12 albuterol sulfate 90 mcg/actuation HFA aerosol inhaler 2 puff inhalation Q6H PRN (Reason: shortness of breath or wheezing) Qty: 8.5 RF: 0 albuterol sulfate 5 mg/mL solution for nebulization 5 mg inhalation Q6H PRN (Reason: shortness of breath or wheezing) Qty: 600 RF: 0 lidocaine 5 % adhesive patch,medicated 2 patch TOP Q24H Qty: 30 RF: 0 prednisone 10 mg tablet 10 mg PO DAILY Qty: 30 RF: 0 Referrals: Lara Reyes MD [Physician] - Arthur Cee MD [Physician] - Tejinder Smith DO [Primary Care Provider] - <Tarah Plunkett DO - Last Filed: 11/01/20 21:48> Cosign ED Attending Olegarioature Attestation: I was immediately available in the department for consultation. Documentation has been reviewed. I agree with as sessment and plan.
[2020-11-01] MEDS: PROPARACAINE 0.5% OPHTH SOL 1 DROPS EYE-LEFT (19:58)
[2020-11-01] MEDS: ERYTHROMYCIN OPHTH 1 GM OINT 1 APPLIC EYE-LEFT (19:58)
[2020-11-01] MEDS: FLUORESCEIN 1 MG STRIP EYE-LEFT (20:44)
[2020-11-01] MEDS: HYDROCODONE/ACET 5/325 PREPACK 1 BOTTLE MISC (20:53)
== END 2020-11-01 21:00 | disposition home or self-care (01) ==
PROVIDERS: Emergency Provider Nurse Practitioner Critical Care Medicine; PCP Family Medicine
DX: H18.822 Corneal disorder due to contact lens, left eye (principal)
CPT/HCPCS: 99282

== ENCOUNTER 2021-12-30 13:37 | Emergency (ER) | payer OTHER, MEDICAID, SELFPAY ==
[2021-12-30 13:41] VITALS: BP 205/102; PULSE 99; RESP 18; TEMP 36.9; O2SAT 97; BMI 51.5
--- NOTE | 2021-12-30 13:49 | DI.RAD.S_ITS ---
PROCEDURE: XR ELBOW LT MIN 3V INDICATIONS: elbow pain hx non healing humural fx TECHNIQUE: 3 views of the elbow were acquired. COMPARISON: [facility], CR, XR ELBOW LT MIN 3V, 07/23/2018, 11:23. FINDINGS: Bones: No fractures or dislocations. No suspicious bony lesions, however quality of visualization of the distal humerus is very limited by to overlapping fixation plates in numerous fixation screws in that area.. Soft tissues: No elbow joint effusion. No suspicious soft tissue calcifications. IMPRESSION: Extensive postsurgical change distal humerus, which plea clues clear visualization of significant portions of the distal humeral diaphysis and metadiaphyseal junction. No definite acute disease. Dictated by: Abhishek Holloway M.D. on 12/30/2021 at 14:45 Approved by: Abhishek Holloway M.D. on 12/30/2021 at 14:47
--- NOTE | 2021-12-30 13:53 | ED.EXTPRO ---
HPI - Extremity Problem General Chief complaint: Extremity Problem,Nontraumatic Stated complaint: lt arm elbow lots of pain Time Seen by Provider: 12/30/21 13:53 Source: patient Mode of arrival: Ambulatory History of Present Illness HPI Narrative: Patient is a 36-year-old female history of asthma and a nonhealing humeral fracture on the left presenting today with left arm pain. She says that her fracture has been there for the last 5 years it does not normally heart however today she is in excruciating pain hurts to move it she has no numbness tingling or weakness. She denies absolutely any chest pain or shortness of breath. She has not taken anything for pain before. She did to be extremely hypertensive in the ED she says she monitors her blood pressure at home it is not normally this high. 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 She is ambidextrous and can use both left and right but does not usually use her left hand anymore. Related Data Previous Rx's Medication Instructions Recorded albuterol sulfate 90 mcg/actuation 2 puff INH Q4-6H ##17 10/08/12 aerosol inhaler (Proventil HFA) fluticasone 100 mcg-salmeterol 50 1 puff INH BID ##1 10/08/12 mcg/dose blistr powdr for inhalation (Advair Diskus) lidocaine 5 % topical patch 2 patch topical Q24H arm pain #30 07/23/18 ea albuterol sulfate 5 mg/mL(0.5 %) 5 mg inhalation Q6H PRN shortness 05/13/20 solution for nebulization of breath or wheezing #600 mL albuterol sulfate 90 mcg/actuation 2 puff inhalation Q6H PRN 05/13/20 aerosol inhaler shortness of breath or wheezing #8.5 grams prednisone 10 mg tablet 10 mg PO DAILY #30 tabs 06/03/20 hydrocodone 5 mg-acetaminophen 325 1 - 2 tab PO Q6HR PRN pain #10 tabs 11/01/20 mg tablet hydrocodone 5 mg-acetaminophen 325 1 tab PO Q6H PRN pain #10 tabs 12/30/21 mg tablet Allergies Allergy/AdvReac Type Severity Reaction Status Date / Time No Known Drug Allergies Allergy Verified 05/13/20 16:11 Review of Systems Review of Systems Narrative: GENERAL: Denies chills, fatigue, malaise, fever, sweats, travel HEENT: Denies sinus pain, ear pain, sore throat, difficulty swallowing, neck pain RESPIRATORY: Denies dyspnea, cough, wheezing, hemoptysis, sputum. CARDIOVASCULAR: Denies chest pain, palpitations, orthopnea, edema GASTROINTESTINAL: Denies nausea, vomiting, abdominal pain, diarrhea, constipation, melena. : Denies dysuria, frequency, incontinence, hematuria, urinary retention, flank pain. MUSCULOSKELETAL: See HPI SKIN: No rash, no erythema, no pruritus NEUROLOGIC: Denies weakness, dizziness, headache, numbness, change in speech, confusion PSYCHIATRIC: No concerning psychosocial issues. 12 point review of systems is negative except for those stated above and HPI Patient History Medical History ADHD Asthma Surgical History S/P ORIF (open reduction internal fixation) fracture Social History Smoking Status: Current some day smoker Smoking Status: Current some day smoker tobacco type: vaping alcohol intake frequency: 0-2 drinks per day Substance Use Type: marijuana Exam Initial Vital Signs Initial Vital Signs: Vital Signs Temperature 98.4 F 12/30/21 13:41 Pulse Rate 99 H 12/30/21 13:41 Respiratory Rate 18 12/30/21 13:41 Blood Pressure 205/102 H 12/30/21 13:41 Pulse Oximetry 97 12/30/21 13:41 Oxygen Delivery Method 12/30/21 13:41 GENERAL: Alert pleasant 36-year-old female BMI 51 HEENT: Head atraumatic,EOMI, pupils reactive, face symmetric, moist mucous membranes CARDIOVASCULAR: Regular rate and rhythm without murmurs, rubs or gallops. RESPIRATORY: Breath sounds equal bilaterally, no wheezes rales or rhonchi. EXTREMITIES: Normal range of motion, no clubbing or edema. Neurovascularly intact Left upper extremity scar noted severe pain with movement good strong distal radial pulse sensation over deltoid intact NEUROLOGICAL: Alert and oriented x4.Normal gait and speech. SKIN: Warm, dry, no laceration, no petechiae, no rashes or lesions. Course Orders Ordered: Discontinued Medications Hydromorphone HCl (Hydromorphone 2 Mg Inj) 1 mg SUBCUT Q4H PRN PRN Reason: Pain, Severe (7-10) Last Admin: 12/30/21 14:08 Dose: 1 mg Documented By: RACHID Vital Signs Vital signs: Vital Signs - 8 hr 12/30/21 13:41 12/30/21 14:33 Temperature 98.4 F Pulse Rate 99 H 88 Respiratory Rate 18 18 Blood Pressure 205/102 H 187/103 H Pulse Oximetry 97 98 Oxygen Delivery Method Room Air Room Air MDM - Extremity (Nontraumatic) Imaging Data Extremity x-ray #1: Radiologist's Impression: ?Adenike Monae MR#: [id number] : 1985 Acct:[id number] Age/Sex: 36 / F Date of Service: 12/30/21 Loc: ED Accession Number: [id number] ?? Procedure: XR elbow LT min 3V Ordering Provider: Tarah Plunkett D.O. PROCEDURE:? XR ELBOW LT MIN 3V ? INDICATIONS:? elbow pain hx non healing humural fx ? TECHNIQUE:? 3 views of the elbow were acquired.? ? COMPARISON:? [facility], CR, XR ELBOW LT MIN 3V, 07/23/2018, 11:23. ? FINDINGS:? ? Bones:? No fractures or dislocations.? No suspicious bony lesions, however quality of visualization of the distal humerus is very limited by to overlapping fixation plates in numerous fixation screws in that area..? ? Soft tissues:? No elbow joint effusion.? No suspicious soft tissue calcifications.? ? ? IMPRESSION:? Extensive postsurgical change distal humerus, which plea clues clear visualization of significant portions of the distal humeral diaphysis and metadiaphyseal junction.? No definite acute disease. ? ? Dictated by: Abhishek Holloway M.D. on 12/30/2021 at 14:45 ? ? Extremity x-ray #2: Radiologist's Impression: XRay Report Signed Patient: Adenike Monae MR#: [id number] : 1985 Acct:[id number] Age/Sex: 36 / F Date of Service: 12/30/21 Loc: ED Accession Number: [id number] ?? Procedure: XR humerus LT 2V Ordering Provider: Tarah Plunkett D.O. PROCEDURE:? XR HUMERUS LT 2V ? INDICATIONS:? pain prior surgery ? TECHNIQUE:? Single-view of the humerus were acquired.? ? COMPARISON:? [facility], CR, XR HUMERUS RT 2V, 03/18/2020, 15:20.? [facility], CR, XR HUMERUS LT 2V, 01/29/2020, 3:14. ? FINDINGS:? ? Bones:? No acute 2 fractures or dislocations.? There has been prior fracture fixation with 2 overlapping fixation plates and numerous transverse fixation screws, 1 of which appears fractured at the upper margin of the area of operative intervention.? This pattern was previously present without definite change booth attendant time 01/29/20.? No suspicious bony lesions.? ? Soft tissues:? No suspicious soft tissue calcifications.? ? IMPRESSION:? No change in prior fracture fixation devices at the left humerus, source of new pain in that area is not found. ? ? Dictated by: Abhishek Holloway M.D. on 12/30/2021 at 15:15 ECG Data Interpretation: Normal sinus rhythm rate 92 DE interval 146 QRS [address] changes MDM Narrative Medical decision making narrative: Patient has previous fracture in her low with postsurgical changes. No abnormality found on x-ray no loosening or change in hardware. Pain is definitely worse with movement and palpation. This is unlikely to be acute coronary syndrome. However she was noted to be quite hypertensive so EKG was done which not show any new ischemic disease. Because pain is reproducible with movement palpation it is likely musculoskeletal. However she denies any injury. She did possibly overuse it a little a few days prior. She is feeling much better with pain medication. Discharge Plan Departure Patient Disposition: Home Clinical Impression: Arm pain, left Instructions: Humeral Shaft Fracture Activity Restrictions/Additional Instructions: *You have been diagnosed with left arm pain *What to do: At this time, no cause of pain is found. Please follow-up with orthopedics. Wear sling as needed please be sure to take shoulder out of sling is a couple times a day move her shoulder around. Please continue to monitor blood pressure at home it is noted to be quite elevated in the ED *Continue to take medications as directed [place] 1 tablet every 6 hours if needed for severe pain--> SENT TO [facility] Ibuprofen 600 mg every 6 hours if needed for [id number] *Follow up with your primary care provider in 2-3 days or call [phone] *Return to ER if you should have increasing pain swelling numbness tingling weakness or any new, worsening or concerning symptoms CONTROLLED SUBSTANCE DISCHARGE (Narcotoic/benzodiazepine/Flexeril/Phenergan) 1. You have been prescribed narcotic medications, it does have acetaminophen/Tylenol/paracetamol in it, DO NOT TAKE MORE THAN 4,00mg in 24 hours of Tylenol. TRAMADOL DOES NOT CONTAIN TYLENOL 2. Please understand that we cannot provide further refills of narcotics, benzodiazepines or controlled substances through the ED and her pain management will need to be through your provider. 3. While on these medications you cannot drive or operate heavy machinery. 4. You cannot sign legal documents or perform any duties such as this. 5. As long as you're taking opiate pain medications he should also be taking a stool softener such as Colace, Dulcolax, MiraLAX or prune juice, to help avoid constipation. Prescriptions: New hydrocodone-acetaminophen 5-325 mg tablet 1 tab PO Q6H PRN (Reason: pain) Qty: 10 0RF No Action fluticasone propion-salmeterol [Advair Diskus] 100 MCG/50 MCG blister with device 1 puff INH BID Qty: 1 12RF albuterol sulfate [Proventil HFA] 90 MCG/PUFF HFA aerosol inhaler 2 puff INH Q4-6H Qty: 17 12RF albuterol sulfate 90 mcg/actuation HFA aerosol inhaler 2 puff inhalation Q6H PRN (Reason: shortness of breath or wheezing) Qty: 8.5 0RF albuterol sulfate 5 mg/mL solution for nebulization 5 mg inhalation Q6H PRN (Reason: shortness of breath or wheezing) Qty: 600 0RF hydrocodone-acetaminophen 5-325 mg tablet 1 - 2 tab PO Q6HR PRN (Reason: pain) Qty: 10 0RF lidocaine 5 % adhesive patch,medicated 2 patch TOP Q24H Qty: 30 0RF Rx Instructions: leave 1-2 patches on most painful area for 12 hrs daily for pain prednisone 10 mg tablet 10 mg PO DAILY Qty: 30 0RF Rx Instructions: day 1-3: 40 mg once a day day 4-6: 30 mg once a day day 7-9: 20 mg once a day day 10-12: 10 mg once a day Referrals: Tejinder Smith DO [Primary Care Provider] - Stand Alone Forms: Work Release Note Visit Report Forms: Patient Portal/API
[2021-12-30] MEDS: HYDROMORPHONE 2 MG INJ 1 MG SUBCUT (14:08)
[2021-12-30 14:33] VITALS: BP 187/103; PULSE 88; RESP 18; O2SAT 98
--- NOTE | 2021-12-30 14:52 | DI.RAD.S_ITS ---
PROCEDURE: XR HUMERUS LT 2V INDICATIONS: pain prior surgery TECHNIQUE: Single-view of the humerus were acquired. COMPARISON: [facility], CR, XR HUMERUS RT 2V, 03/18/2020, 15:20. [facility], CR, XR HUMERUS LT 2V, 01/29/2020, 3:14. FINDINGS: Bones: No acute 2 fractures or dislocations. There has been prior fracture fixation with 2 overlapping fixation plates and numerous transverse fixation screws, 1 of which appears fractured at the upper margin of the area of operative intervention. 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 No suspicious bony lesions. Soft tissues: No suspicious soft tissue calcifications. IMPRESSION: No change in prior fracture fixation devices at the left humerus, source of new pain in that area is not found. Dictated by: Abhishek Holloway M.D. on 12/30/2021 at 15:15 Approved by: Abhishek Holloway M.D. on 12/30/2021 at 15:17
== END 2021-12-30 15:49 | disposition home or self-care (01) ==
PROVIDERS: Emergency Provider Emergency Medicine; PCP Family Medicine
DX: M79.602 Pain in left arm (principal); R03.0 Elevated blood-pressure reading, without diagnosis of hypertension
CPT/HCPCS: 73060; 73080; 93005; 96372; 99283; J1170

== ENCOUNTER 2022-02-22 13:04 | Emergency (ER) | payer OTHER, MEDICAID, SELFPAY ==
[2022-02-22 13:09] VITALS: BP 191/102; PULSE 97; RESP 16; TEMP 36.4; O2SAT 96; BMI 49.8
--- NOTE | 2022-02-22 17:19 | ED_ITS ---
HPI - Asthma <ELIEZER EastmanP - Last Filed: 02/22/22 17:34> General Chief Complaint: Asthma Stated Complaint: Cold, Worsening cough, Asthma Time Seen by Provider: 02/22/22 16:50 Source: patient Mode of arrival: Ambulatory History of Present Illness HPI Narrative: This is a 36-year-old female who presents to the emergency department with history of asthma, wheezing, states that she has had a cough for the last 3 days, shortness of breath and congestion with productive cough. She denies fever chills, states that she is finishing a prednisone prescription right now for a toe infection, states that she was on doxycycline, her wound is improved, and has not had any swelling of her lower extremities. Denies any calf pain, denies any chest pain, denies any history of blood clots. States that cold air as a trigger and that her asthma is quite severe, she uses DuoNebs at home. Related Data Previous Rx's Medication Instructions Recorded albuterol sulfate 90 mcg/actuation 2 puff INH Q4-6H ##17 10/08/12 aerosol inhaler (Proventil HFA) fluticasone 100 mcg-salmeterol 50 1 puff INH BID ##1 10/08/12 mcg/dose blistr powdr for inhalation (Advair Diskus) lidocaine 5 % topical patch 2 patch topical Q24H arm pain #30 07/23/18 ea albuterol sulfate 5 mg/mL(0.5 %) 5 mg inhalation Q6H PRN shortness 05/13/20 solution for nebulization of breath or wheezing #600 mL albuterol sulfate 90 mcg/actuation 2 puff inhalation Q6H PRN 05/13/20 aerosol inhaler shortness of breath or wheezing #8.5 grams prednisone 10 mg tablet 10 mg PO DAILY #30 tabs 06/03/20 hydrocodone 5 mg-acetaminophen 325 1 - 2 tab PO Q6HR PRN pain #10 tabs 11/01/20 mg tablet hydrocodone 5 mg-acetaminophen 325 1 tab PO Q6H PRN pain #10 tabs 12/30/21 mg tablet benzonatate 200 mg capsule 200 mg PO TID PRN cough #20 caps 02/22/22 cetirizine 5 mg tablet 10 mg PO BEDTIME PRN congestion 12/28/22 #60 tabs ipratropium 0.5 mg-albuterol 3 mg 3 ml inhalation Q6-8H PRN 02/22/22 (2.5 mg base)/3 mL nebulization shortness of breath or wheezing soln #180 mL methylprednisolone 4 mg tablets in See Rx Instructions PO .COMPLEX 02/22/22 a dose pack (Medrol ([place])) #21 ea Allergies Allergy/AdvReac Type Severity Reaction Status Date / Time No Known Drug Allergies Allergy Verified 02/22/22 13:09 Review of Systems <DALI Eastman - Last Filed: 02/22/22 17:34> Review of Systems ROS Unobtainable: All systems reviewed & are unremarkable except as noted in HPI and below Patient History <DALI Eastman - Last Filed: 02/22/22 17:34> Medical History ADHD Asthma Surgical History S/P ORIF (open reduction internal fixation) fracture Social History Smoking Status: Current some day smoker Smoking Status: Current some day smoker tobacco type: vaping alcohol intake frequency: 0-2 drinks per day Substance Use Type: marijuana Exam <DALI Eastman - Last Filed: 02/22/22 17:34> Narrative Exam Narrative: Reviewed vitals signs and nursing notes. General: cooperative, comfortable, in no acute distress, well groomed HEENT: symmetrical facial expressions, moist mucous membranes Cardiovascular: regular rate and rhythm, no peripheral edema, warm extremities, hypertensive Respiratory: normal effort, without increased work of breathing, able to speak in complete sentences, expiratory wheezes throughout, without stridor, retractions or tachypnea. Without crackles or rales GI: abdomen soft, nontender to palpation, nondistended, without masses, rebound tenderness or exquisite tenderness with exam. MSK: moves all extremities, neurovascularly intact, no weakness, normal tone Skin: brisk capillary refill, without pallor or erythema Neuro: normal speech and cognition, A&O x3, ambulatory, clear speech Psych: mental status is grossly normal, congruent mood, normal affect, pleasant and cooperative Initial Vital Signs Initial Vital Signs: Vital Signs Temperature 97.6 F 02/22/22 13:09 Pulse Rate 97 H 02/22/22 13:09 Respiratory Rate 16 02/22/22 13:09 Blood Pressure 191/102 H 02/22/22 13:09 Pulse Oximetry 96 02/22/22 13:09 Oxygen Delivery Method 02/22/22 13:09 <Tarah Plunkett DO - Last Filed: 02/25/22 07:53> Initial Vital Signs Initial Vital Signs: Vital Signs Temperature 97.6 F 02/22/22 13:09 Pulse Rate 97 H 02/22/22 13:09 Respiratory Rate 16 02/22/22 13:09 Blood Pressure 191/102 H 02/22/22 13:09 Pulse Oximetry 96 02/22/22 13:09 Oxygen Delivery Method 02/22/22 13:09 Course <ELIEZER EastmanP - Last Filed: 02/22/22 17:34> Orders Ordered: Discontinued Medications Benzonatate (Benzonatate 100 Mg Capsule) 100 mg PO NOW ONE Stop: 02/22/22 17:04 Last Admin: 02/22/22 17:57 Dose: 100 mg Documented By: CAMPOS Methylprednisolone (Methylprednisolone 125 Mg/2 Ml Vial) 125 mg IM NOW ONE Stop: 02/22/22 17:02 Last Admin: 02/22/22 17:57 Dose: 125 mg Documented By: CAMPOS Vital Signs Vital signs: Vital Signs - 8 hr 02/22/22 13:09 Temperature 97.6 F Pulse Rate 97 H Respiratory Rate 16 Blood Pressure 191/102 H Pulse Oximetry 96 Oxygen Delivery Method Room Air <Tarah Plunkett DO - Last Filed: 02/25/22 07:53> Orders Ordered: Discontinued Medications Benzonatate (Benzonatate 100 Mg Capsule) 100 mg PO NOW ONE Stop: 02/22/22 17:04 Last Admin: 02/22/22 17:57 Dose: 100 mg Documented By: CAMPOS Methylprednisolone (Methylprednisolone 125 Mg/2 Ml Vial) 125 mg IM NOW ONE Stop: 02/22/22 17:02 Last Admin: 02/22/22 17:57 Dose: 125 mg Documented By: CAMPOS Vital Signs Vital signs: Vital Signs - 8 hr 02/22/22 13:09 Temperature 97.6 F Pulse Rate 97 H Respiratory Rate 16 Blood Pressure 191/102 H Pulse Oximetry 96 Oxygen Delivery Method Room Air MDM - Asthma <Michelle Baeza, [facility] - Last Filed: 02/22/22 17:34> [facility] Narrative Medical decision making narrative: This is a 36-year-old female who presents to the emergency department with history of asthma and states she is had 3 days of cough, congestion, and intermittent shortness of breath which improves with her DuoNebs. Her primary care provider used to be Dr. Garcia but she no longer practices at that clinic and the patient's clinic does not accept her insurance any longer. She is looking for a new primary care provider, today was hypertensive in the emergency department but does not carry diagnosis of hypertension she is recommended to follow-up in establish primary care with a new provider on her insurance and address this. She is not have increased work of breathing but she is short of breath with expiratory wheezes. She did not have nursing care or a room with oxygen and was not given a DuoNeb here in the emergency department, she was treated for likely viral infection, and was seen at the urgent care 2 days ago negative for flu and COVID. This is most likely RSV or other viral illness. She does not have crackles or rales, has not had fever chills, differential includes pneumonia, pulmonary embolism, ACS, bacterial infection although these are less likely. Patient does not have history of any blood clots, does not have any lower extremity edema or pain, has congestion, frequent cough with expiratory wheezes and does not appear dehydrated. She is tapering down on prednisone with 5 mg tablets left for 2 more days for a wound infection that she was prescribed antibiotics for and has completed and the wound has improved. She denies history of diabetes, was given IM Solu-Medrol in the emergency department, I refilled her DuoNebs for her nebulizers with 2 refills, she is encouraged to follow-up with a primary care provider and use the other 5 mg tabs of prednisone to taper off the Medrol that she will start tomorrow. Patient is appropriate and amenable to discharge home. Vital signs are stable on repeat examination is unremarkable. Patient has been informed of results. Patient has been given strict return to ER precautions for any new or worsening symptoms. Patient understands to follow up closely with outpatient providers as instructed. Patient understands plan and agrees to discharge home. All questions and concerns answered at this time. Discharge Plan Departure Patient Disposition: Home Clinical Impression: Upper respiratory infection, viral Asthma exacerbation Qualifiers: Asthma severity: unspecified severity Asthma persistence: persistent Qualified Code(s): J45.901 - Unspecified asthma with (acute) exacerbation Instructions: Asthma -- Adult, DI for Viral Upper Respiratory Infection -- Adult Activity Restrictions/Additional Instructions: *You have been diagnosed with an upper respiratory viral infection with an asthma exacerbation. Please start the Medrol Dosepak tomorrow, use your albuterol nebulized as needed, given you to refills, please try to avoid triggers, stay hydrated, rest as much as possible. Your blood pressure was quite elevated today, please follow-up with a primary care provider that is approved on your insurance as soon as possible to address your asthma, your blood pressure, and any other needs you may have. Thank you for your patience, I hope you feel better soon. Sudafed would be great but your blood pressure is elevated enough today that I do not think it is a great option for you. Given you some pills called benzonatate, they are not covered on your insurance but they may help with cough. Do not feel obligated to pick them up if they are expensive, try [id number] medications like Mucinex, Flonase, Zyrtec. I prescribed for you in that way so that your insurance may cover it, if it does not, please pick it up [id number] might be cheaper. I hope you feel better soon. *What to do: *Please continue to take your regular medications as directed. [ x] New medication prescriptions sent to your pharmacy: [ [facility]] [ ] New medication written as a paper prescription [ ] No new medications given *Please follow up with your primary care provider in 2-3 days, call for an appointment. Let them know you were seen in the Emergency Department and that we asked that you be seen for follow-up. We will electronically transmit a record of today's note if your PCP is in our system *If you do not have a primary care provider please contact [phone] to establish care with one of the [facility] primary care providers. *Return to Emergency Department if you should have any new, worsening, or concerning symptoms, such as [fever greater than 101F, chills, worsening pain, persistent vomiting or other bothersome symptoms]. Prescriptions: New ipratropium-albuterol 0.5 mg-3 mg(2.5 mg base)/3 mL solution for nebulization 3 ml inhalation Q6-8H PRN (Reason: shortness of breath or wheezing) Qty: 180 2RF methylprednisolone [Medrol ([place])] 4 mg tablets,dose pack See Rx Instructions .ROUTE .COMPLEX Qty: 21 0RF Rx Instructions: orally per package directions cetirizine 5 mg tablet 10 mg PO BEDTIME PRN (Reason: congestion) Qty: 60 0RF benzonatate 200 mg capsule 200 mg PO TID PRN (Reason: cough) Qty: 20 0RF No Action fluticasone propion-salmeterol [Advair Diskus] 100 MCG/50 MCG blister with device 1 puff INH BID Qty: 1 12RF albuterol sulfate [Proventil HFA] 90 MCG/PUFF HFA aerosol inhaler 2 puff INH Q4-6H Qty: 17 12RF albuterol sulfate 90 mcg/actuation HFA aerosol inhaler 2 puff inhalation Q6H PRN (Reason: shortness of breath or wheezing) Qty: 8.5 0RF albuterol sulfate 5 mg/mL solution for nebulization 5 mg inhalation Q6H PRN (Reason: shortness of breath or wheezing) Qty: 600 0RF hydrocodone-acetaminophen 5-325 mg tablet 1 - 2 tab PO Q6HR PRN (Reason: pain) Qty: 10 0RF lidocaine 5 % adhesive patch,medicated 2 patch TOP Q24H Qty: 30 0RF Rx Instructions: leave 1-2 patches on most painful area for 12 hrs daily for pain prednisone 10 mg tablet 10 mg PO DAILY Qty: 30 0RF Rx Instructions: day 1-3: 40 mg once a day day 4-6: 30 mg once a day day 7-9: 20 mg once a day day 10-12: 10 mg once a day hydrocodone-acetaminophen 5-325 mg tablet 1 tab PO Q6H PRN (Reason: pain) Qty: 10 0RF Referrals: Tejinder Smith DO [Primary Care Provider] - Stand Alone Forms: Patient Portal/API <Tarah Plunkett DO - Last Filed: 02/25/22 07:53> Cosign ED Attending Cosignature Attestation: I was immediately available in the department for consultation. Documentation has been reviewed. I agree with assessment and plan.
[2022-02-22] MEDS: methylPREDNISolone 125 MG/2 ML VIAL IM (17:57)
[2022-02-22] MEDS: BENZONATATE 100 MG CAPSULE PO (17:57)
[2022-02-22 18:20] VITALS: BP 173/107; PULSE 90; O2SAT 97
== END 2022-02-22 18:25 | disposition home or self-care (01) ==
PROVIDERS: Emergency Provider Nurse Practitioner Critical Care Medicine; PCP Family Medicine
DX: J06.9 Acute upper respiratory infection, unspecified (principal); J45.901 Unspecified asthma with (acute) exacerbation
CPT/HCPCS: 96372; 99283; J2930

== ENCOUNTER 2022-05-21 10:22 | Emergency (ER) | payer OTHER, MEDICAID, SELFPAY ==
--- NOTE | 2022-05-21 10:33 | DI.RAD.S_ITS ---
PROCEDURE: XR FOOT LT MIN 3V INDICATIONS: pain injury TECHNIQUE: 3 views of the foot were acquired. COMPARISON: [facility], CR, XR FOOT RT MIN 3V, 11/14/2019, 17:02. FINDINGS: Bones: No fractures or dislocations. No suspicious bony lesions. Soft tissues: No tibiotalar joint effusion. Achilles tendon appears normal. IMPRESSION: No acute fracture. No osseous lesion. If symptoms and/or clinical suspicion for pathology persist, further assessment with repeat, or advanced imaging (e.g., CT, MRI, or bone scan) may be helpful for further assessment. Dictated by: Silvia Mann M.D. on 05/21/2022 at 10:46 Approved by: Silvia Mann M.D. on 05/21/2022 at 10:46
[2022-05-21 10:36] VITALS: BP 192/117; PULSE 96; RESP 18; TEMP 36.6; O2SAT 100; BMI 50.8
--- NOTE | 2022-05-21 10:41 | ED_ITS ---
HPI - Extremity Problem General Chief complaint: Extremity Injury, Lower Stated complaint: fall, lt foot injury/pain Time Seen by Provider: 05/21/22 10:33 Source: patient Mode of arrival: Ambulatory History of Present Illness HPI Narrative: Patient is a 29-year-old female history of asthma, nonhealing left humeral fracture presenting today with left foot pain. She was walking down the stairs last night when she slipped and hurt her foot. She reports that she fell down about 3 stairs she did not hit her head or lose consciousness. She has no other pain or injury. She has a cane that she is using to walk with but she states she does not normally use it. She denies any knee pain or hip pain. Right leg is also little bit sore but no specific sites of pain or injury she seems to be bearing weight on that side without any difficulty. Related Data Previous Rx's Medication Instructions Recorded albuterol sulfate 90 mcg/actuation 2 puff INH Q4-6H ##17 10/08/12 aerosol inhaler (Proventil HFA) fluticasone 100 mcg-salmeterol 50 1 puff INH BID ##1 10/08/12 mcg/dose blistr powdr for inhalation (Advair Diskus) lidocaine 5 % topical patch 2 patch topical Q24H arm pain #30 07/23/18 ea albuterol sulfate 5 mg/mL(0.5 %) 5 mg inhalation Q6H PRN shortness 05/13/20 solution for nebulization of breath or wheezing #600 mL albuterol sulfate 90 mcg/actuation 2 puff inhalation Q6H PRN 05/13/20 aerosol inhaler shortness of breath or wheezing #8.5 grams prednisone 10 mg tablet 10 mg PO DAILY #30 tabs 06/03/20 hydrocodone 5 mg-acetaminophen 325 1 - 2 tab PO Q6HR PRN pain #10 tabs 11/01/20 mg tablet hydrocodone 5 mg-acetaminophen 325 1 tab PO Q6H PRN pain #10 tabs 12/30/21 mg tablet benzonatate 200 mg capsule 200 mg PO TID PRN cough #20 caps 02/22/22 cetirizine 5 mg tablet 10 mg PO BEDTIME PRN congestion 02/22/22 #60 tabs ipratropium 0.5 mg-albuterol 3 mg 3 ml inhalation Q6-8H PRN 02/22/22 (2.5 mg base)/3 mL nebulization shortness of breath or wheezing soln #180 mL methylprednisolone 4 mg tablets in See Rx Instructions PO .COMPLEX 02/22/22 a dose pack (Medrol (Carson)) #21 ea cyclobenzaprine 10 mg tablet 10 mg PO TID PRN muscle spasm #10 05/21/22 tabs Allergies Allergy/AdvReac Type Severity Reaction Status Date / Time No Known Drug Allergies Allergy Verified 02/22/22 13:09 Review of Systems Review of Systems ROS Unobtainable: All systems reviewed & are unremarkable except as noted in HPI and below Patient History Medical History ADHD Asthma Surgical History S/P ORIF (open reduction internal fixation) fracture Social History Smoking Status: Current some day smoker Smoking Status: Current some day smoker tobacco type: vaping alcohol intake frequency: 0-2 drinks per day Alcohol type: beer Substance Use Type: marijuana Exam Initial Vital Signs Initial Vital Signs: Vital Signs Temperature 97.9 F 05/21/22 10:36 Pulse Rate 96 H 05/21/22 10:36 Respiratory Rate 18 05/21/22 10:36 Blood Pressure 192/117 H 05/21/22 10:36 Pulse Oximetry 100 05/21/22 10:36 Oxygen Delivery Method Room Air 05/21/22 10:36 GENERAL: Alert well-appearing 37-year-old female BMI 50 CARDIOVASCULAR: peripheral pulses in tact, cap refill <2 sec RESPIRATORY: No respiratory distress, speaks in full sentences without difficulty EXTREMITIES: Normal range of motion, no clubbing or edema. Neurovascularly intact Left lower extremity knee is stable and within normal limits ankle stable no swelling Achilles intact distal pedal pulse is intact. She is midfoot pain with minimal swelling or erythema. Small rash is noted Right lower extremity is stable and within NEUROLOGICAL: Cranial nerves II through XII grossly intact. Normal gait and speech. SKIN: Warm, dry, no petechiae, no rashes or lesions. Course Orders Ordered: ED Orders 05/21/22 10:33 XR foot LT min 3V Stat Vital Signs Vital signs: Vital Signs - 8 hr 05/21/22 10:36 05/21/22 11:06 Temperature 97.9 F Pulse Rate 96 H Respiratory Rate 18 Blood Pressure 192/117 H 168/75 H Pulse Oximetry 100 Oxygen Delivery Method Room Air MDM - Extremity (Nontraumatic) Imaging Data Extremity x-ray #1: Radiologist's Impression: PROCEDURE:? XR FOOT LT MIN 3V ? INDICATIONS:? pain injury ? TECHNIQUE:? 3 views of the foot were acquired.? ? COMPARISON:? [facility], CR, XR FOOT RT MIN 3V, 11/14/2019, 17:02. ? FINDINGS:? ? Bones:? No fractures or dislocations.? No suspicious bony lesions.? ? Soft tissues:? No tibiotalar joint effusion.? Achilles tendon appears normal.? ? ? IMPRESSION:? No acute fracture. No osseous lesion. If symptoms and/or clinical suspicion for pathology persist, further assessment with repeat, or advanced imaging (e.g., CT, MRI, or bone scan) may be helpful for further assessment. ? ? Dictated by: Silvia Mann M.D. on 05/21/2022 at 10:46? [facility] Narrative Medical decision making narrative: Patient 37-year-old female with left foot pain. Fell down 3 stairs last night difficulty walking today. Ankle and knee are stable foot x-ray is negative. Diagnosis foot strain. Patient requesting muscle relaxer. Discharge Plan Departure Patient Disposition: Home Clinical Impression: Strain of foot, left Instructions: DI for Foot Sprain Activity Restrictions/Additional Instructions: *You have been diagnosed with left foot strain *What to do: At this time elevate ice as needed. There are no broken bones. *Continue to take medications as directed Tylenol Motrin as directed Cyclobenzaprine 10 mg every 8 hours needed for muscle pain or spasm *Follow up with your primary care provider in 2-3 days or call [phone] *Return to ER if you should have increasing pain swelling redness, or inability to walk or any new, worsening or concerning symptoms Prescriptions: New cyclobenzaprine 10 mg tablet 10 mg PO TID PRN (Reason: muscle spasm) Qty: 10 0RF No Action fluticasone propion-salmeterol [Advair Diskus] 100 MCG/50 MCG blister with device 1 puff INH BID Qty: 1 12RF albuterol sulfate [Proventil HFA] 90 MCG/PUFF HFA aerosol inhaler 2 puff INH Q4-6H Qty: 17 12RF albuterol sulfate 90 mcg/actuation HFA aerosol inhaler 2 puff inhalation Q6H PRN (Reason: shortness of breath or wheezing) Qty: 8.5 0RF albuterol sulfate 5 mg/mL solution for nebulization 5 mg inhalation Q6H PRN (Reason: shortness of breath or wheezing) Qty: 600 0RF hydrocodone-acetaminophen 5-325 mg tablet 1 - 2 tab PO Q6HR PRN (Reason: pain) Qty: 10 0RF ipratropium-albuterol 0.5 mg-3 mg(2.5 mg base)/3 mL solution for nebulization 3 ml inhalation Q6-8H PRN (Reason: shortness of breath or wheezing) Qty: 180 2RF methylprednisolone [Medrol (Carson)] 4 mg tablets,dose pack See Rx Instructions .ROUTE .COMPLEX Qty: 21 0RF Rx Instructions: orally per package directions cetirizine 5 mg tablet 10 mg PO BEDTIME PRN (Reason: congestion) Qty: 60 0RF benzonatate 200 mg capsule 200 mg PO TID PRN (Reason: cough) Qty: 20 0RF lidocaine 5 % adhesive patch,medicated 2 patch TOP Q24H Qty: 30 0RF Rx Instructions: leave 1-2 patches on most painful area for 12 hrs daily for pain prednisone 10 mg tablet 10 mg PO DAILY Qty: 30 0RF Rx Instructions: day 1-3: 40 mg once a day day 4-6: 30 mg once a day day 7-9: 20 mg once a day day 10-12: 10 mg once a day hydrocodone-acetaminophen 5-325 mg tablet 1 tab PO Q6H PRN (Reason: pain) Qty: 10 0RF Referrals: Tejinder Smith DO [Primary Care Provider] - Stand Alone Forms: Patient Portal/API
[2022-05-21 11:06] VITALS: BP 168/75
== END 2022-05-21 11:19 | disposition home or self-care (01) ==
PROVIDERS: Emergency Provider Emergency Medicine; PCP Family Medicine
DX: S96.912A Strain of unspecified muscle and tendon at ankle and foot level, left foot, initial encounter (principal); W10.9XXA Fall (on) (from) unspecified stairs and steps, initial encounter
CPT/HCPCS: 73630; 99283

== ENCOUNTER 2023-01-22 23:54 | Observation (INO) | payer OTHER, MEDICAID, SELFPAY ==
[2023-01-23] VITALS (37 sets, daily range): BP systolic 161–224; BP diastolic 77–118; PULSE 70–115; RESP 16–20; TEMP 36.1–36.9; O2SAT 78–100; BMI 52.0
[2023-01-23 00:12] LABS: Pregnancy Test Urine Negative (Negative)
--- NOTE | 2023-01-23 00:12 | ED_ITS ---
HPI - General Adult <DO Robert Meraz Last Filed: 01/26/23 07:08> General Chief complaint: Abdominal Pain Stated complaint: abd pain Time Seen by Provider: 01/23/23 00:01 Source: patient Mode of arrival: Ambulatory Limitations: no limitations History of Present Illness HPI narrative: Patient is a 37-year-old female here for evaluation of fairly sudden onset of abdominal discomfort that started at approximately 2100 hours. She is had nausea and vomiting since that time. No diarrhea. No fevers. Still has her gallbladder and her appendix. The pain is in her back. It is constant in nature. Does not change with urination. No history of kidney stones. No chest pain or shortness of breath. No skin changes. Has not tried anything for the symptoms prior to arrival. Has never had discomfort like this in the past. Related Data Previous Rx's Medication Instructions Recorded fluticasone 100 mcg-salmeterol 50 1 puff INH BID ##1 10/08/12 mcg/dose blistr powdr for inhalation (Advair Diskus) lidocaine 5 % topical patch 2 patch topical Q24H arm pain #30 07/23/18 ea albuterol sulfate 5 mg/mL(0.5 %) 5 mg inhalation Q6H PRN shortness 05/13/20 solution for nebulization of breath or wheezing #600 mL albuterol sulfate 90 mcg/actuation 2 puff inhalation Q6H PRN 05/13/20 aerosol inhaler shortness of breath or wheezing #8.5 grams cetirizine 5 mg tablet 10 mg (2 x 5 mg) PO BEDTIME PRN 02/22/22 congestion #60 tabs ipratropium 0.5 mg-albuterol 3 mg 3 ml inhalation Q6-8H PRN 02/22/22 (2.5 mg base)/3 mL nebulization shortness of breath or wheezing soln #180 mL Allergies Allergy/AdvReac Type Severity Reaction Status Date / Time No Known Drug Allergies Allergy Verified 02/22/22 13:09 Review of Systems <DO Robert Meraz Last Filed: 01/26/23 07:08> Review of Systems ROS Unobtainable: All systems reviewed & are unremarkable except as noted in HPI and below Patient History <DO Robert Meraz Last Filed: 01/26/23 07:08> Medical History ADHD Asthma Surgical History S/P ORIF (open reduction internal fixation) fracture Social History household members: children Smoking Status: Current some day smoker alcohol intake: current Smoking Status: Current some day smoker tobacco type: vaping alcohol intake frequency: 0-2 drinks per day Alcohol type: beer Substance Use Type: marijuana Exam <Silvestre Betancourt DO - Last Filed: 01/26/23 07:08> Initial Vital Signs Initial Vital Signs: Vital Signs Temperature 98.1 F 01/23/23 00:05 Pulse Rate 103 H 01/23/23 00:05 Respiratory Rate 18 01/23/23 00:05 Blood Pressure 223/107 H 01/23/23 00:05 Pulse Oximetry 99 01/23/23 00:05 Oxygen Delivery Method Room Air 01/23/23 00:05 HENMT Head: normal to inspection and normocephalic Resp Effort & Inspection: normal respiratory effort Auscultation: clear to auscultation bilaterally Cardio Rate: regular rate Rhythm: regular rhythm GI Inspection: normal to inspection and non-distended Palpation: soft, No firm, No guarding and tender (Diffuse tenderness most and right upper quadrant) Back/Spine/Pelvis Back: No CVA tenderness Skin General: no rashes or lesions noted Neuro General: patient alert, patient awake, patient oriented x3 and moves all extremities Extrem General: capillary refill normal <Aniyah Garces MD - Last Filed: 01/23/23 16:49> Initial Vital Signs Initial Vital Signs: Vital Signs Temperature 98.1 F 01/23/23 00:05 Pulse Rate 103 H 01/23/23 00:05 Respiratory Rate 18 01/23/23 00:05 Blood Pressure 223/107 H 01/23/23 00:05 Pulse Oximetry 99 01/23/23 00:05 Oxygen Delivery Method Room Air 01/23/23 00:05 Course <DO Robert Meraz Last Filed: 01/26/23 07:08> Orders Ordered: Acetaminophen (Acetaminophen 325 Mg Tablet) 650 mg PO Q6H NATALYA Last Admin: 01/26/23 05:52 Dose: 650 mg Documented By: Admin: 01/25/23 23:50 Dose: 650 mg Documented By: Admin: 01/25/23 17:23 Dose: 650 mg Documented By: Admin: 01/25/23 11:40 Dose: 650 mg Documented By: Admin: 01/25/23 04:13 Dose: 650 mg Documented By: Admin: 01/24/23 23:44 Dose: Not Given Documented By: Admin: 01/24/23 17:48 Dose: Not Given Documented By: Admin: 01/24/23 10:36 Dose: 650 mg Documented By: Admin: 01/24/23 05:35 Dose: 650 mg Documented By: Admin: 01/23/23 23:57 Dose: Not Given Documented By: Admin: 01/23/23 18:51 Dose: 650 mg Documented By: RONDA Albuterol (Albuterol 2.5 Mg/3 Ml Neb (Adult)) 2.5 mg INH [id number] [facility] Last Admin: 01/26/23 05:40 Dose: Not Given Documented By: Admin: 01/25/23 12:46 Dose: Not Given Documented By: Admin: 01/25/23 08:00 Dose: Not Given Documented By: Admin: 01/24/23 19:05 Dose: 2.5 mg Documented By: Admin: 01/24/23 14:37 Dose: Not Given Documented By: Admin: 01/24/23 07:32 Dose: 2.5 mg Documented By: Admin: 01/23/23 19:20 Dose: 2.5 mg Documented By: NORIS Gabapentin (Gabapentin 100 Mg Capsule) 300 mg PO TID [facility] Last Admin: 01/25/23 20:44 Dose: 300 mg Documented By: Admin: 01/25/23 15:02 Dose: 300 mg Documented By: Admin: 01/25/23 08:58 Dose: 300 mg Documented By: Admin: 01/24/23 20:13 Dose: 300 mg Documented By: Admin: 01/24/23 15:19 Dose: Not Given Documented By: Admin: 01/24/23 08:43 Dose: 300 mg Documented By: Admin: 01/23/23 20:21 Dose: Not Given Documented By: Admin: 01/23/23 18:51 Dose: 300 mg Documented By: RONDA Levofloxacin (Levofloxacin 250 Mg Tablet) 750 mg PO Q24H [facility] Last Admin: 01/25/23 12:22 Dose: 750 mg Documented By: RONDA Morphine Sulfate (Morphine 4 Mg/Ml Inj) 4 mg IV Q4HR PRN PRN Reason: Pain, Severe (7-10) Last Admin: 01/23/23 21:40 Dose: 4 mg Documented By: DAVID Naloxone HCl (Naloxone 0.4 Mg/Ml Vial) 0.2 mg IV Q2MIN PRN PRN Reason: Opiate Reversal Ondansetron HCl (Ondansetron 4 Mg/2 Ml Inj) 4 mg IV Q6HR PRN PRN Reason: Nausea And Vomiting Oxycodone HCl (Oxycodone Ir 5 Mg Tablet) 10 mg PO Q3HR PRN PRN Reason: Pain, Severe (7-10) Last Admin: 01/25/23 04:13 Dose: 10 mg Documented By: Admin: 01/25/23 00:43 Dose: 10 mg Documented By: Admin: 01/24/23 17:49 Dose: 10 mg Documented By: MARIO Oxycodone HCl (Oxycodone Ir 5 Mg Tablet) 5 mg PO Q4HR PRN PRN Reason: Pain, Moderate (4-6) Last Admin: 01/25/23 23:50 Dose: 5 mg Documented By: Discontinued Medications Bupivacaine HCl (Bupivacaine 0.25% (Pf) Vial) 30 ml INJ NOW ONE Stop: 01/24/23 15:47 Last Admin: 01/24/23 15:46 Dose: 30 ml Documented By: LITA Celecoxib (Celecoxib 200 Mg Capsule) 200 mg PO BID [facility] Last Admin: 01/25/23 08:59 Dose: 200 mg Documented By: Admin: 01/24/23 20:13 Dose: 200 mg Documented By: Admin: 01/24/23 08:42 Dose: 200 mg Documented By: Admin: 01/23/23 20:20 Dose: 200 mg Documented By: DAVID Heparin Sodium (Porcine) (Heparin 5,000 Unit/Ml Vial) 5,000 unit SUBCUT NOW ONE Stop: 01/23/23 16:58 Last Admin: 01/23/23 18:46 Dose: Not Given Documented By: RONDA Hydromorphone HCl (Hydromorphone 1 Mg Inj) 1 mg IV NOW ONE Stop: 01/23/23 02:20 Last Admin: 01/23/23 02:28 Dose: 1 mg Documented By: WOLFGANG Hydromorphone HCl (Hydromorphone 1 Mg Inj) 0 mg IV Q5MIN PRN PRN Reason: Pain, Mild (1-3) Last Admin: 01/24/23 18:09 Dose: 0.25 mg Documented By: MARIO Hydromorphone HCl (Hydromorphone 1 Mg Inj) 0 mg IV Q5MIN PRN PRN Reason: Pain, Moderate (4-6) Last Admin: 01/24/23 17:47 Dose: 0.5 mg Documented By: Admin: 01/24/23 17:41 Dose: 0.5 mg Documented By: Admin: 01/24/23 17:32 Dose: 0.5 mg Documented By: Admin: 01/24/23 17:17 Dose: 0.5 mg Documented By: MARIO Sodium Chloride (Normal Saline 0.9%) 1,000 mls @ 1,000 mls/hr IV BOLUS ONE Stop: 01/23/23 01:07 Last Infusion: 01/23/23 01:28 Dose: Infused Documented By: Admin: 01/23/23 00:28 Dose: 1,000 mls/hr Documented By: IAN Acetaminophen (Ofirmev) 1,000 mg in 100 mls @ 400 mls/hr IV NOW ONE Stop: 01/23/23 01:59 Last Infusion: 01/23/23 02:04 Dose: Infused Documented By: Admin: 01/23/23 01:49 Dose: 400 mls/hr Documented By: IAN Ceftriaxone Sodium 2,000 mg/ (Sodium Chloride) 100 mls @ 200 mls/hr IV NOW ONE Stop: 01/23/23 16:44 Last Infusion: 01/23/23 18:59 Dose: Infused Documented By: Admin: 01/23/23 16:56 Dose: 200 mls/hr Documented By: NEO Metronidazole (Flagyl) 500 mg in 100 mls @ 100 mls/hr IV NOW ONE Stop: 01/23/23 17:42 Last Admin: 01/23/23 18:52 Dose: 100 mls/hr Documented By: RONDA Sodium Chloride (Normal Saline 0.9%) 1,000 mls @ 1,000 mls/hr IV BOLUS ONE Stop: 01/23/23 17:42 Last Admin: 01/23/23 16:57 Dose: 1,000 mls/hr Documented By: NEO Sodium Chloride (Normal Saline 0.9%) 1,000 mls @ 100 mls/hr IV CONT NATALYA Last Admin: 01/25/23 05:00 Dose: 100 mls/hr Documented By: Infusion: 01/25/23 04:52 Dose: Infused Documented By: Admin: 01/24/23 18:52 Dose: 100 mls/hr Documented By: Infusion: 01/24/23 13:31 Dose: Infused Documented By: Admin: 01/24/23 02:25 Dose: 100 mls/hr Documented By: DAVID(2) Admin: 01/23/23 19:34 Dose: Not Given Documented By: DAVID Metronidazole (Flagyl) 500 mg in 100 mls @ 100 mls/hr IV NOW ONE Stop: 01/24/23 12:44 Last Infusion: 01/24/23 13:54 Dose: Infused Documented By: Admin: 01/24/23 12:23 Dose: 100 mls/hr Documented By: RONDA Lactated Ringer's (Lactated Ringers) 1,000 mls @ 42 mls/hr IV NOW ONE Stop: 01/25/23 13:20 Last Admin: 01/24/23 16:33 Dose: 42 mls/hr Documented By: Infusion: 01/24/23 16:33 Dose: Infused Documented By: Admin: 01/24/23 13:32 Dose: 42 mls/hr Documented By: AUGUSTO Piperacillin Sod/Tazobactam (Sod 4.5 gm/ Sodium Chloride) 100 mls @ 200 mls/hr IV NOW ONE Stop: 01/24/23 13:57 Last Infusion: 01/24/23 16:25 Dose: Infused Documented By: Admin: 01/24/23 15:25 Dose: 200 mls/hr Documented By: AB Piperacillin Sod/Tazobactam (Sod 3.375 gm/ Sodium Chloride) 100 mls @ 25 mls/hr IV Q8H NATALYA Last Infusion: 01/25/23 08:59 Dose: Infused Documented By: Admin: 01/25/23 03:16 Dose: 25 mls/hr Documented By: Infusion: 01/25/23 00:14 Dose: Infused Documented By: Admin: 01/24/23 20:14 Dose: 25 mls/hr Documented By: Piperacillin Sod/Tazobactam (Sod 4.5 gm/ Sodium Chloride) 100 mls @ 25 mls/hr IV Q8H NATALYA Ketorolac Tromethamine (Ketorolac 30 Mg/Ml Vial) 15 mg IV NOW ONE Stop: 01/23/23 15:10 Last Admin: 01/23/23 15:17 Dose: 15 mg Documented By: NEO Ketorolac Tromethamine (Ketorolac 30 Mg/Ml Vial) 30 mg IV NOW ONE Stop: 01/24/23 17:56 Last Admin: 01/24/23 18:01 Dose: 30 mg Documented By: MARIO Lisinopril (Lisinopril 20 Mg Tablet) 20 mg PO NOW ONE Stop: 01/24/23 06:48 Last Admin: 01/24/23 06:55 Dose: 20 mg Documented By: DAVID Morphine Sulfate (Morphine 4 Mg/Ml Inj) 4 mg IV NOW ONE Stop: 01/23/23 00:12 Last Admin: 01/23/23 00:24 Dose: 4 mg Documented By: IAN Morphine Sulfate (Morphine 4 Mg/Ml Inj) 4 mg IV NOW ONE Stop: 01/23/23 07:54 Last Admin: 01/23/23 07:56 Dose: 4 mg Documented By: NEO Nicotine (Nicotine 14 Patch) 14 mg TOP NOW ONE Stop: 01/25/23 17:29 Last Admin: 01/25/23 17:38 Dose: 14 mg Documented By: RONDA Ondansetron HCl (Ondansetron 4 Mg/2 Ml Inj) 4 mg IV NOW ONE Stop: 01/23/23 00:12 Last Admin: 01/23/23 00:24 Dose: 4 mg Documented By: IAN Ondansetron HCl (Ondansetron 4 Mg/2 Ml Inj) 4 mg IV NOW ONE Stop: 01/23/23 15:11 Last Admin: 01/23/23 15:17 Dose: 4 mg Documented By: NEO Ondansetron HCl (Ondansetron 4 Mg/2 Ml Inj) 4 mg IV NOW PRN PRN Reason: Nausea And Vomiting Last Admin: 01/24/23 17:33 Dose: 4 mg Documented By: MARIO Oxycodone HCl (Oxycodone Ir 10 Mg Tablet) 10 mg PO Q3HR PRN PRN Reason: Pain, Severe (7-10) Last Admin: 01/24/23 06:55 Dose: 10 mg Documented By: Admin: 01/23/23 20:20 Dose: 10 mg Documented By: DAVID Oxycodone/Acetaminophen (Oxycodone/Acetaminophen 5/325 Tablet) 1 tab PO PACUNOW PRN PRN Reason: Mild or Moderate Pain Scopolamine (Scopolamine 1 Patch) 1 patch TOP NOW ONE Stop: 01/23/23 16:59 Last Admin: 01/23/23 18:51 Dose: 1 patch Documented By: RONDA Scopolamine (Scopolamine 1 Patch) 1 patch TOP NOW ONE Stop: 01/24/23 10:35 Last Admin: 01/24/23 10:53 Dose: Not Given Documented By: RONDA Vital Signs Vital signs: Vital Signs - 8 hr 01/23/23 09:00 01/23/23 09:00 01/23/23 09:30 Pulse Rate 82 83 Blood Pressure 181/83 H Pulse Oximetry 95 97 Oxygen Delivery Method Nasal Cannula Oxygen Flow Rate 3 01/23/23 09:30 01/23/23 10:00 01/23/23 10:00 Pulse Rate 92 H Blood Pressure 166/79 H 172/93 H Pulse Oximetry 98 Oxygen Delivery Method Oxygen Flow Rate 01/23/23 10:30 01/23/23 10:30 01/23/23 11:00 Pulse Rate 74 Blood Pressure 161/88 H 171/83 H Pulse Oximetry 95 Oxygen Delivery Method Nasal Cannula Oxygen Flow Rate 3 01/23/23 11:00 01/23/23 11:30 01/23/23 11:30 Pulse Rate 80 76 Blood Pressure 189/106 H Pulse Oximetry 98 98 Oxygen Delivery Method Oxygen Flow Rate 3 01/23/23 12:00 01/23/23 12:00 01/23/23 15:16 Pulse Rate 78 Blood Pressure 180/90 H 195/98 H Pulse Oximetry 97 Oxygen Delivery Method Nasal Cannula Oxygen Flow Rate 2 01/23/23 15:16 01/23/23 15:30 01/23/23 16:00 Pulse Rate 89 80 77 Blood Pressure 195/98 H Pulse Oximetry 98 96 97 Oxygen Delivery Method Nasal Cannula Oxygen Flow Rate 2 <Aniyah Garces MD - Last Filed: 01/23/23 16:49> Orders Ordered: Acetaminophen (Acetaminophen 325 Mg Tablet) 650 mg PO Q6H [facility] Last Admin: 01/26/23 05:52 Dose: 650 mg Documented By: Admin: 01/25/23 23:50 Dose: 650 mg Documented By: Admin: 01/25/23 17:23 Dose: 650 mg Documented By: Admin: 01/25/23 11:40 Dose: 650 mg Documented By: Admin: 01/25/23 04:13 Dose: 650 mg Documented By: Admin: 01/24/23 23:44 Dose: Not Given Documented By: Admin: 01/24/23 17:48 Dose: Not Given Documented By: Admin: 01/24/23 10:36 Dose: 650 mg Documented By: Admin: 01/24/23 05:35 Dose: 650 mg Documented By: Admin: 01/23/23 23:57 Dose: Not Given Documented By: Admin: 01/23/23 18:51 Dose: 650 mg Documented By: RONDA Albuterol (Albuterol 2.5 Mg/3 Ml Neb (Adult)) 2.5 mg INH [id number] [facility] Last Admin: 01/26/23 05:40 Dose: Not Given Documented By: Admin: 01/25/23 12:46 Dose: Not Given Documented By: Admin: 01/25/23 08:00 Dose: Not Given Documented By: Admin: 01/24/23 19:05 Dose: 2.5 mg Documented By: Admin: 01/24/23 14:37 Dose: Not Given Documented By: Admin: 01/24/23 07:32 Dose: 2.5 mg Documented By: Admin: 01/23/23 19:20 Dose: 2.5 mg Documented By: NORIS Gabapentin (Gabapentin 100 Mg Capsule) 300 mg PO TID [facility] Last Admin: 01/25/23 20:44 Dose: 300 mg Documented By: Admin: 01/25/23 15:02 Dose: 300 mg Documented By: Admin: 01/25/23 08:58 Dose: 300 mg Documented By: Admin: 01/24/23 20:13 Dose: 300 mg Documented By: Admin: 01/24/23 15:19 Dose: Not Given Documented By: Admin: 01/24/23 08:43 Dose: 300 mg Documented By: Admin: 01/23/23 20:21 Dose: Not Given Documented By: Admin: 01/23/23 18:51 Dose: 300 mg Documented By: RONDA Levofloxacin (Levofloxacin 250 Mg Tablet) 750 mg PO Q24H [facility] Last Admin: 01/25/23 12:22 Dose: 750 mg Documented By: RONDA Morphine Sulfate (Morphine 4 Mg/Ml Inj) 4 mg IV Q4HR PRN PRN Reason: Pain, Severe (7-10) Last Admin: 01/23/23 21:40 Dose: 4 mg Documented By: DAVID Naloxone HCl (Naloxone 0.4 Mg/Ml Vial) 0.2 mg IV Q2MIN PRN PRN Reason: Opiate Reversal Ondansetron HCl (Ondansetron 4 Mg/2 Ml Inj) 4 mg IV Q6HR PRN PRN Reason: Nausea And Vomiting Oxycodone HCl (Oxycodone Ir 5 Mg Tablet) 10 mg PO Q3HR PRN PRN Reason: Pain, Severe (7-10) Last Admin: 01/25/23 04:13 Dose: 10 mg Documented By: Admin: 01/25/23 00:43 Dose: 10 mg Documented By: Admin: 01/24/23 17:49 Dose: 10 mg Documented By: MARIO Oxycodone HCl (Oxycodone Ir 5 Mg Tablet) 5 mg PO Q4HR PRN PRN Reason: Pain, Moderate (4-6) Last Admin: 01/25/23 23:50 Dose: 5 mg Documented By: Discontinued Medications Bupivacaine HCl (Bupivacaine 0.25% (Pf) Vial) 30 ml INJ NOW ONE Stop: 01/24/23 15:47 Last Admin: 01/24/23 15:46 Dose: 30 ml Documented By: LITA Celecoxib (Celecoxib 200 Mg Capsule) 200 mg PO BID [facility] Last Admin: 01/25/23 08:59 Dose: 200 mg Documented By: Admin: 01/24/23 20:13 Dose: 200 mg Documented By: Admin: 01/24/23 08:42 Dose: 200 mg Documented By: Admin: 01/23/23 20:20 Dose: 200 mg Documented By: DAVID Heparin Sodium (Porcine) (Heparin 5,000 Unit/Ml Vial) 5,000 unit SUBCUT NOW ONE Stop: 01/23/23 16:58 Last Admin: 01/23/23 18:46 Dose: Not Given Documented By: RONDA Hydromorphone HCl (Hydromorphone 1 Mg Inj) 1 mg IV NOW ONE Stop: 01/23/23 02:20 Last Admin: 01/23/23 02:28 Dose: 1 mg Documented By: WOLFGANG Hydromorphone HCl (Hydromorphone 1 Mg Inj) 0 mg IV Q5MIN PRN PRN Reason: Pain, Mild (1-3) Last Admin: 01/24/23 18:09 Dose: 0.25 mg Documented By: MARIO Hydromorphone HCl (Hydromorphone 1 Mg Inj) 0 mg IV Q5MIN PRN PRN Reason: Pain, Moderate (4-6) Last Admin: 01/24/23 17:47 Dose: 0.5 mg Documented By: Admin: 01/24/23 17:41 Dose: 0.5 mg Documented By: Admin: 01/24/23 17:32 Dose: 0.5 mg Documented By: Admin: 01/24/23 17:17 Dose: 0.5 mg Documented By: MARIO Sodium Chloride (Normal Saline 0.9%) 1,000 mls @ 1,000 mls/hr IV BOLUS ONE Stop: 01/23/23 01:07 Last Infusion: 01/23/23 01:28 Dose: Infused Documented By: Admin: 01/23/23 00:28 Dose: 1,000 mls/hr Documented By: IAN Acetaminophen (Ofirmev) 1,000 mg in 100 mls @ 400 mls/hr IV NOW ONE Stop: 01/23/23 01:59 Last Infusion: 01/23/23 02:04 Dose: Infused Documented By: Admin: 01/23/23 01:49 Dose: 400 mls/hr Documented By: IAN Ceftriaxone Sodium 2,000 mg/ (Sodium Chloride) 100 mls @ 200 mls/hr IV NOW ONE Stop: 01/23/23 16:44 Last Infusion: 01/23/23 18:59 Dose: Infused Documented By: Admin: 01/23/23 16:56 Dose: 200 mls/hr Documented By: NEO Metronidazole (Flagyl) 500 mg in 100 mls @ 100 mls/hr IV NOW ONE Stop: 01/23/23 17:42 Last Admin: 01/23/23 18:52 Dose: 100 mls/hr Documented By: RONDA Sodium Chloride (Normal Saline 0.9%) 1,000 mls @ 1,000 mls/hr IV BOLUS ONE Stop: 01/23/23 17:42 Last Admin: 01/23/23 16:57 Dose: 1,000 mls/hr Documented By: NEO Sodium Chloride (Normal Saline 0.9%) 1,000 mls @ 100 mls/hr IV CONT NATALYA Last Admin: 01/25/23 05:00 Dose: 100 mls/hr Documented By: Infusion: 01/25/23 04:52 Dose: Infused Documented By: Admin: 01/24/23 18:52 Dose: 100 mls/hr Documented By: Infusion: 01/24/23 13:31 Dose: Infused Documented By: Admin: 01/24/23 02:25 Dose: 100 mls/hr Documented By: DAVID(2) Admin: 01/23/23 19:34 Dose: Not Given Documented By: DAVID Metronidazole (Flagyl) 500 mg in 100 mls @ 100 mls/hr IV NOW ONE Stop: 01/24/23 12:44 Last Infusion: 01/24/23 13:54 Dose: Infused Documented By: Admin: 01/24/23 12:23 Dose: 100 mls/hr Documented By: RONDA Lactated Ringer's (Lactated Ringers) 1,000 mls @ 42 mls/hr IV NOW ONE Stop: 01/25/23 13:20 Last Admin: 01/24/23 16:33 Dose: 42 mls/hr Documented By: Infusion: 01/24/23 16:33 Dose: Infused Documented By: Admin: 01/24/23 13:32 Dose: 42 mls/hr Documented By: AUGUSTO Piperacillin Sod/Tazobactam (Sod 4.5 gm/ Sodium Chloride) 100 mls @ 200 mls/hr IV NOW ONE Stop: 01/24/23 13:57 Last Infusion: 01/24/23 16:25 Dose: Infused Documented By: Admin: 01/24/23 15:25 Dose: 200 mls/hr Documented By: AB Piperacillin Sod/Tazobactam (Sod 3.375 gm/ Sodium Chloride) 100 mls @ 25 mls/hr IV Q8H NATALYA Last Infusion: 01/25/23 08:59 Dose: Infused Documented By: Admin: 01/25/23 03:16 Dose: 25 mls/hr Documented By: Infusion: 01/25/23 00:14 Dose: Infused Documented By: Admin: 01/24/23 20:14 Dose: 25 mls/hr Documented By: SR Piperacillin Sod/Tazobactam (Sod 4.5 gm/ Sodium Chloride) 100 mls @ 25 mls/hr IV Q8H NATALYA Ketorolac Tromethamine (Ketorolac 30 Mg/Ml Vial) 15 mg IV NOW ONE Stop: 01/23/23 15:10 Last Admin: 01/23/23 15:17 Dose: 15 mg Documented By: NEO Ketorolac Tromethamine (Ketorolac 30 Mg/Ml Vial) 30 mg IV NOW ONE Stop: 01/24/23 17:56 Last Admin: 01/24/23 18:01 Dose: 30 mg Documented By: MARIO Lisinopril (Lisinopril 20 Mg Tablet) 20 mg PO NOW ONE Stop: 01/24/23 06:48 Last Admin: 01/24/23 06:55 Dose: 20 mg Documented By: DAVID Morphine Sulfate (Morphine 4 Mg/Ml Inj) 4 mg IV NOW ONE Stop: 01/23/23 00:12 Last Admin: 01/23/23 00:24 Dose: 4 mg Documented By: IAN Morphine Sulfate (Morphine 4 Mg/Ml Inj) 4 mg IV NOW ONE Stop: 01/23/23 07:54 Last Admin: 01/23/23 07:56 Dose: 4 mg Documented By: NEO Nicotine (Nicotine 14 Patch) 14 mg TOP NOW ONE Stop: 01/25/23 17:29 Last Admin: 01/25/23 17:38 Dose: 14 mg Documented By: RONDA Ondansetron HCl (Ondansetron 4 Mg/2 Ml Inj) 4 mg IV NOW ONE Stop: 01/23/23 00:12 Last Admin: 01/23/23 00:24 Dose: 4 mg Documented By: IAN Ondansetron HCl (Ondansetron 4 Mg/2 Ml Inj) 4 mg IV NOW ONE Stop: 01/23/23 15:11 Last Admin: 01/23/23 15:17 Dose: 4 mg Documented By: NEO Ondansetron HCl (Ondansetron 4 Mg/2 Ml Inj) 4 mg IV NOW PRN PRN Reason: Nausea And Vomiting Last Admin: 01/24/23 17:33 Dose: 4 mg Documented By: MARIO Oxycodone HCl (Oxycodone Ir 10 Mg Tablet) 10 mg PO Q3HR PRN PRN Reason: Pain, Severe (7-10) Last Admin: 01/24/23 06:55 Dose: 10 mg Documented By: Admin: 01/23/23 20:20 Dose: 10 mg Documented By: DAVID Oxycodone/Acetaminophen (Oxycodone/Acetaminophen 5/325 Tablet) 1 tab PO PACUNOW PRN PRN Reason: Mild or Moderate Pain Scopolamine (Scopolamine 1 Patch) 1 patch TOP NOW ONE Stop: 01/23/23 16:59 Last Admin: 01/23/23 18:51 Dose: 1 patch Documented By: RONDA Scopolamine (Scopolamine 1 Patch) 1 patch TOP NOW ONE Stop: 01/24/23 10:35 Last Admin: 01/24/23 10:53 Dose: Not Given Documented By: RONDA Vital Signs Vital signs: Vital Signs - 8 hr 01/23/23 09:00 01/23/23 09:00 01/23/23 09:30 Pulse Rate 82 83 Blood Pressure 181/83 H Pulse Oximetry 95 97 Oxygen Delivery Method Nasal Cannula Oxygen Flow Rate 3 01/23/23 09:30 01/23/23 10:00 01/23/23 10:00 Pulse Rate 92 H Blood Pressure 166/79 H 172/93 H Pulse Oximetry 98 Oxygen Delivery Method Oxygen Flow Rate 01/23/23 10:30 01/23/23 10:30 01/23/23 11:00 Pulse Rate 74 Blood Pressure 161/88 H 171/83 H Pulse Oximetry 95 Oxygen Delivery Method Nasal Cannula Oxygen Flow Rate 3 01/23/23 11:00 01/23/23 11:30 01/23/23 11:30 Pulse Rate 80 76 Blood Pressure 189/106 H Pulse Oximetry 98 98 Oxygen Delivery Method Oxygen Flow Rate 3 01/23/23 12:00 01/23/23 12:00 01/23/23 15:16 Pulse Rate 78 Blood Pressure 180/90 H 195/98 H Pulse Oximetry 97 Oxygen Delivery Method Nasal Cannula Oxygen Flow Rate 2 01/23/23 15:16 01/23/23 15:30 01/23/23 16:00 Pulse Rate 89 80 77 Blood Pressure 195/98 H Pulse Oximetry 98 96 97 Oxygen Delivery Method Nasal Cannula Oxygen Flow Rate 2 Medical Decision Making <Silvestre Betancourt, - Last Filed: 01/26/23 07:08> Lab Data Lab results reviewed: Yes I reviewed the patient's lab results. 01/26/23 05:28 01/26/23 05:28 Labs: Lab Results 01/23/23 01/23/23 Range/Units 00:03 00:20 WBC 14.5 H (4.5-11.0) X10^3/uL RBC 4.23 (4.0-5.2) X10^6/uL Hgb 13.4 (12.0-16.0) g/dL Hct 39.7 (36-46) % MCV 93.9 (80-100) fL MCH 31.7 (26-34) PG MCHC 33.7 (30-36) % RDW 13.8 (11.6-14.8) % Plt Count 292 (150-400) X10^3/uL Neut % (Auto) 77.7 H (50-75) % Lymph % (Auto) 12.6 L (25-40) % [place] % (Auto) 7.7 (3-14) % Eos % (Auto) 1.5 L (2-4) % Baso % (Auto) 0.5 (0-2) % Neut # (Auto) 81541 H (0543-6497) /uL Lymph # (Auto) 1800 (2573-6467) /uL [place] # (Auto) 1100 H (0-900) /uL Eos # (Auto) 200 (0-450) /uL Baso # (Auto) 100 (0-100) /uL Sodium 135 L (137-145) mmol/L Potassium 4.0 (3.4-5.1) mmol/L Chloride 103 (98-107) mmol/L Carbon Dioxide 26 (22-32) mmol/L BUN 10 (7-17) mg/dL Creatinine 1.09 H (0.52-1.04) mg/dL Estimated GFR > 60 (>60) mL/min BUN/Creatinine Ratio 9.2 (6-22) Glucose 132 H (70-100) mg/dL Calcium 9.0 (8.4-10.2) mg/dL Total Bilirubin 0.6 (0.2-1.3) mg/dL AST 26 (14-36) IU/L ALT 25 (<35) IU/L Alkaline Phosphatase 75 (38-126) U/L Total Protein 7.5 (6.3-8.2) g/dL Albumin 4.0 (3.5-5.0) g/dL Globulin 3.5 (1.7-4.1) g/dL Albumin/Globulin Ratio 1.1 (1.0-2.8) Lipase 155 (23-300) U/L Urine Color Yellow Urine Appearance Clear Urine pH 6.5 (4.5-8.0) Ur Specific [place] >=1.030 H (1.000-1.035) Urine Protein 1+ H (Negative) Urine Glucose (UA) Negative (Negative) g/dL Urine Ketones Trace H (NEGATIVE) Urine Occult Blood Negative (Negative) Urine Nitrate Negative (Negative) Urine Bilirubin Negative (NEGATIVE) Urine Urobilinogen 0.2 (0.2) E.U./dL Ur Leukocyte Esterase Negative (NEGATIVE) Urine RBC 0-1/hpf (0-5/HPF) Urine WBC None seen (0-5/HPF) Ur Squamous Epith Cells 5-10 /hpf H (0-5/HPF) Calcium Oxalate Crystal Moderate H Urine Bacteria Moderate (10-30) H (None) Urine Mucus 3+ H (Negative) Ur Culture Indicated? Cult not indicated Urine Test Negative (Negative) Imaging Data CT scan - abdomen/pelvis: Radiologist's Impression: PROCEDURE: CT ABDOMEN PELVIS W CON INDICATIONS: Generalized with right greater than left abdominal pain TECHNIQUE: After the administration of IV contrast, axial sections were acquired from the lung bases to the pubic symphysis. Coronal and sagittal reformats were performed. For radiation dose reduction, the following was used: automated exposure control, adjustment of mA and/or kV according to patient size. COMPARISON: None. FINDINGS: Image quality: Excellent. Lung bases: Unremarkable. Heart: No significant findings. ABDOMEN: Liver: No solid mass. Gallbladder: Distended. No radiopaque gallstones or wall thickening. Biliary ducts: No biliary dilation. Pancreas: No ductal dilation. Spleen: Size is within normal limits. Adrenal Glands: No adrenal nodules. Kidneys and Ureters: No hydronephrosis. No solid mass. No complex renal cystic lesion which requires follow up. Stomach and Bowel: Normal colonic caliber, without significant wall thickening. Normal appendix. Peritoneum: No abnormal intraperitoneal fluid. No free air. Ventral Wall: No hernia. Abdominal Nodes: No retroperitoneal or mesenteric adenopathy by size criteria. Vessels: Aorta and inferior vena cava are normal in size. PELVIS: Pelvic Organs: Anteverted uterus. IUD centered in the uterus. Bladder: No stone. Pelvic Nodes: No enlarged lymph nodes. Miscellaneous: No inguinal hernias are seen. Bones: No suspicious osseous lesion. IMPRESSION: No acute abnormality identified. Normal appendix. No free fluid. Gallbladder is distended. This could be due to NPO status. No pericholecystic fluid demonstrated. If concern for acute cholecystitis consider gallbladder ultrasound. US - abdomen: Radiologist's Impression: Positive sonographic Tamez sign. Distended gallbladder with sludge layering dependently. Given positive sonographic Tamez's sign, recommend HIDA scan to exclude acute cholecystitis MDM Narrative Medical decision making narrative: Patient has had fairly significant right upper quadrant pain but also generalized pain. CT scan shows distended gallbladder but no other acute pathology. Right upper quadrant ultrasound again shows distended gallbladder but no overt signs of acute cholecystitis. Her LFTs and lipase are normal. She does have a leukocytosis without other signs of an infection. She is feeling somewhat better after morphine and Dilaudid but is still having discomfort. Her nausea is better. I did discuss the case with Dr. Mendenhall on-call for General surgery who did recommend a HIDA scan for further evaluation before any consideration of surgical intervention. I did discuss this with the patient. Plan will be for her to remain in the emergency department and obtain a HIDA scan later this morning and then Re contact General surgery depending on results of this. Care turned over to Dr. Garces who follow-up and disposition. <Aniyah Garces MD - Last Filed: 01/23/23 16:49> Lab Data Labs: Lab Results 01/23/23 01/23/23 Range/Units 00:03 00:20 WBC 14.5 H (4.5-11.0) X10^3/uL RBC 4.23 (4.0-5.2) X10^6/uL Hgb 13.4 (12.0-16.0) g/dL Hct 39.7 (36-46) % MCV 93.9 (80-100) fL MCH 31.7 (26-34) PG MCHC 33.7 (30-36) % RDW 13.8 (11.6-14.8) % Plt Count 292 (150-400) X10^3/uL Neut % (Auto) 77.7 H (50-75) % Lymph % (Auto) 12.6 L (25-40) % [place] % (Auto) 7.7 (3-14) % Eos % (Auto) 1.5 L (2-4) % Baso % (Auto) 0.5 (0-2) % Neut # (Auto) 42406 H (5623-8945) /uL Lymph # (Auto) 1800 (8894-0910) /uL [place] # (Auto) 1100 H (0-900) /uL Eos # (Auto) 200 (0-450) /uL Baso # (Auto) 100 (0-100) /uL Sodium 135 L (137-145) mmol/L Potassium 4.0 (3.4-5.1) mmol/L Chloride 103 (98-107) mmol/L Carbon Dioxide 26 (22-32) mmol/L BUN 10 (7-17) mg/dL Creatinine 1.09 H (0.52-1.04) mg/dL Estimated GFR > 60 (>60) mL/min BUN/Creatinine Ratio 9.2 (6-22) Glucose 132 H (70-100) mg/dL Calcium 9.0 (8.4-10.2) mg/dL Total Bilirubin 0.6 (0.2-1.3) mg/dL AST 26 (14-36) IU/L ALT 25 (<35) IU/L Alkaline Phosphatase 75 (38-126) U/L Total Protein 7.5 (6.3-8.2) g/dL Albumin 4.0 (3.5-5.0) g/dL Globulin 3.5 (1.7-4.1) g/dL Albumin/Globulin Ratio 1.1 (1.0-2.8) Lipase 155 (23-300) U/L Urine Color Yellow Urine Appearance Clear Urine pH 6.5 (4.5-8.0) Ur Specific [place] >=1.030 H (1.000-1.035) Urine Protein 1+ H (Negative) Urine Glucose (UA) Negative (Negative) g/dL Urine Ketones Trace H (NEGATIVE) Urine Occult Blood Negative (Negative) Urine Nitrate Negative (Negative) Urine Bilirubin Negative (NEGATIVE) Urine Urobilinogen 0.2 (0.2) E.U./dL Ur Leukocyte Esterase Negative (NEGATIVE) Urine RBC 0-1/hpf (0-5/HPF) Urine WBC None seen (0-5/HPF) Ur Squamous Epith Cells 5-10 /hpf H (0-5/HPF) Calcium Oxalate Crystal Moderate H Urine Bacteria Moderate (10-30) H (None) Urine Mucus 3+ H (Negative) Ur Culture Indicated? Cult not indicated Urine Test Negative (Negative) MDM Narrative Medical decision making narrative: Patient has had fairly significant right upper quadrant pain but also generalized pain. CT scan shows distended gallbladder but no other acute pathology. Right upper quadrant ultrasound again shows distended gallbladder but no overt signs of acute cholecystitis. Her LFTs and lipase are normal. She does have a leukocytosis without other signs of an infection. She is feeling somewhat better after morphine and Dilaudid but is still having discomfort. Her nausea is better. I did discuss the case with Dr. Mendenhall on-call for General surgery who did recommend a HIDA scan for further evaluation before any consideration of surgical intervention. I did discuss this with the patient. Plan will be for her to remain in the emergency department and obtain a HIDA scan later this morning and then Re contact General surgery depending on results of this. Care turned over to Dr. Garces who follow-up and disposition. (Dez) -care of patient is signed out to me by Dr. Betancourt. Patient complained of pain early this morning, unfortunately she did receive morphine and HIDA scan had to be delayed until 1:00 p.m.. HIDA scan was resulted, it did indicate acute cholecystitis. I discussed the patient's case with Dr. Mendenhall, who will admit the patient to her service, with likely operation tomorrow. IV fluids, Rocephin, Flagyl ordered for antibiotic coverage. Patient informed of all results. In agreement with plan. Discharge Plan Departure Patient Disposition: Admitted as Observation Clinical Impression: Acute cholecystitis, Morbid obesity Admit Date/Time: 01/23/23 16:44 Admit Provider: Tasha Mendenhall
[2023-01-23] MEDS: ONDANSETRON 4 MG/2 ML INJ IV ×2 (00:24→15:17)
[2023-01-23] MEDS: MORPHINE 4 MG/ML INJ IV ×3 (00:24→21:40)
[2023-01-23] MEDS: SODIUM CHLORIDE 0.9% 1,000 ML 1000 ML IV ×2 (00:28→16:57)
[2023-01-23 00:30] LABS: Add Manual Diff / Slide Review NO; Basophils Absolute Auto 100 /uL (0-100); Basophils Percent Auto 0.5 % (0-2); Eosinophils Absolute Auto 200 /uL (0-450); Eosinophils Percent Auto 1.5 % (2-4); Hematocrit 39.7 % (36-46); Hemoglobin 13.4 g/dL (12.0-16.0); Lymphocytes Absolute Auto 1800 /uL (1100-4500); Lymphocytes Percent Auto 12.6 % (25-40); Mean Corpuscular HGB Conc 33.7 % (30-36); Mean Corpuscular Hemoglobin 31.7 PG (26-34); Mean Corpuscular Volume 93.9 fL (80-100); Monocytes Absolute Auto 1100 /uL (0-900); Monocytes Percent Auto 7.7 % (3-14); Neutrophils Absolute Auto 11300 /uL (1500-7000); Neutrophils Percent Auto 77.7 % (50-75); Platelet Count 292 X10^3/uL (150-400); Red Blood Cell Count 4.23 X10^6/uL (4.0-5.2); Red Cell Distribution Width 13.8 % (11.6-14.8); White Blood Cell Count 14.5 X10^3/uL (4.5-11.0)
[2023-01-23 00:37] LABS: Appearance Urine UA CLEAR; Bilirubin Urine UA NEGATIVE (NEGATIVE); Color Urine UA YELLOW; Glucose Urine UA NEGATIVE (Negative); Ketones Urine UA TRACE (NEGATIVE); Leukocyte Esterase Urine UA NEGATIVE (NEGATIVE); Nitrite Urine UA NEGATIVE (Negative); Occult Blood Urine UA NEGATIVE (Negative); Protein Urine UA 1+ (Negative); Specific Gravity Urine UA >=1.030 (1.000-1.035); Urobilinogen Urine UA 0.2 E.U./dL (0.2)
[2023-01-23 00:42] LABS: Alanine Aminotransferase 25 IU/L (<35); Albumin Globulin Ratio 1.1 (1.0-2.8); Alkaline Phosphatase 75 U/L (38-126); Aspartate Aminotransferase 26 IU/L (14-36); BUN Creatinine Ratio 9.2 (6-22); Bilirubin Total 0.6 mg/dL (0.2-1.3); Blood Urea Nitrogen 10 mg/dL (7-17); Carbon Dioxide 26 mmol/L (22-32); Chloride 103 mmol/L (98-107); Estimated Glomerular Filt Rate > 60 mL/min (>60); Globulin 3.5 g/dL (1.7-4.1); Glucose 132 mg/dL (70-100); HEMOLYSIS < 15 (0-50); Lipase 155 U/L (23-300); Sodium 135 mmol/L (137-145); Total Protein 7.5 g/dL (6.3-8.2)
[2023-01-23 00:45] LABS: Bacteria Urine Moderate (10-30); Squamous Epithelial Cell Urine 5-10 /HPF (0-5/HPF); pH Urine UA 6.5 (4.5-8.0)
[2023-01-23 00:46] LABS: RBC Urine 0-1/HPF (0-5/HPF); WBC Urine None Seen (0-5/HPF)
[2023-01-23 00:47] LABS: Calcium Oxalate Crystals Urine Moderate; Culture Indicated Urine Cult Not Indicated; Mucus Urine 3+ (Negative)
--- NOTE | 2023-01-23 01:45 | DI.US.S_ITS ---
PROCEDURE: US ABDOMEN LIMITED INDICATIONS: RUQ PAIN TECHNIQUE: Real-time scanning was performed of the abdominal and retroperitoneal organs, with image documentation. COMPARISON: [facility], CT, CT ABDOMEN PELVIS W CON, 01/23/2023, 0:19. FINDINGS: Liver: Liver is normal in size and demonstrates increased echotexture. Gallbladder: Distended gallbladder with gallbladder sludge. No gallstones. Mild gallbladder wall thickening measuring 1 mm. No pericholecystic fluid . There is sonographic Tamez's sign. Biliary ducts: Intrahepatic bile ducts are non-dilated. Extrahepatic bile duct caliber measures 4.8 mm. Normal is 6-7 mm or less in diameter, or 10 mm or less post-cholecystectomy. Pancreas: Visualized portions of the pancreas are sonographically normal. Miscellaneous: No free abdominal fluid. IMPRESSION: 1. There is gallbladder sludge. Gallbladder is hydropic. No gallbladder wall thickening but positive sonographic Tamez sign. Consider HIDA scan if clinically indicated. 2. Diffusely increased hepatic echotexture. This finding is most likely secondary to hepatic fatty infiltration although other hepatocellular disease may have a similar appearance. Recommend clinical correlation. No significant discrepancy with the shift supervisor melting radiology preliminary report. Dictated by: Nilesh Mcginnis M.D. on 01/23/2023 at 8:31 Approved by: Nilesh Mcginnis M.D. on 01/23/2023 at 8:36
[2023-01-23] MEDS: ACETAMINOPHEN IV 1,000 MG/100 ML VIAL 400 MG IV (01:49)
[2023-01-23] MEDS: HYDROMORPHONE 1 MG INJ IV (02:28)
--- NOTE | 2023-01-23 04:11 | DI.NM.S_ITS ---
PROCEDURE: NM HIDA NO EJECTION FRACTION RADIOPHARMACEUTICAL: 5.5 mCi Tc-99m mebrofenin IV. INDICATIONS: RUQ pain with biliary sludge TECHNIQUE: Following intravenous administration of Tc-99m mebrofenin, sequential anterior abdominal images were obtained through at least 60 minutes. COMPARISON: [facility], US, US ABDOMEN LIMITED, 01/23/2023, 2:23. [facility], CT, CT ABDOMEN PELVIS W CON, 01/23/2023, 0:19. FINDINGS: There is normal tracer uptake and excretion by the liver. There is normal visualization of intrahepatic ducts, common bile duct, and normal tracer excretion into duodenum. There is nonfilling of gallbladder. There is bile reflux in stomach. IMPRESSION: 1. Nonfilling of gallbladder consistent with cystic duct obstruction. The findings are highly suspicious for acute cholecystitis. 2. Bile reflux in stomach. Dictated by: Nilesh Mcginnis M.D. on 01/23/2023 at 16:25 Approved by: Nilesh Mcginnis M.D. on 01/23/2023 at 16:38
[2023-01-23] MEDS: KETOROLAC 30 MG/ML VIAL 15 MG IV (15:17)
--- NOTE | 2023-01-23 16:22 | PC.NURSE ---
Pt laying in bed and stated that hse is resting comfortably. Pt denies any nausea at this time and rates pain as a 4/10 after 15mg toradol. Daughter at bedside.
[2023-01-23] MEDS: cefTRIAXone 2,000 MG in SODIUM CHLORIDE 0.9% 100 ML 200 MG IV (16:56)
[2023-01-23] MEDS: ACETAMINOPHEN 325 MG TABLET 650 MG PO (18:51)
[2023-01-23] MEDS: GABAPENTIN 100 MG CAPSULE 300 MG PO (18:51)
[2023-01-23] MEDS: SCOPOLAMINE 1 PATCH TOP (18:51)
[2023-01-23] MEDS: metroNIDAZOLE 500 MG/100 ML PIGGYBACK 100 MG IV (18:52)
--- NOTE | 2023-01-23 19:05 | PC.NURSE ---
1800 Pt to room 205 via gurney from ER. Pt able to transfer self to bed. Pt awake and oriented x 3. Denies pain, nausea, or shortness of breath. Pt oriented to room, call light, bed controls, and tv controls. Pt able to eat some of her dinner without discomfort. Bed alrm on for safety. Pt agrees to call for assistance as needed.
[2023-01-23] MEDS: ALBUTEROL 2.5 MG/3 ML NEB (ADULT) INH (19:20)
[2023-01-23] MEDS: CELECOXIB 200 MG CAPSULE PO (20:20)
[2023-01-23] MEDS: OXYCODONE IR 10 MG TABLET PO (20:20)
--- NOTE | 2023-01-23 22:47 | PC.NURSE ---
Addendum entered by Gloria Farnsworth R.N. 01/24/23 06:49: Dr. Mendenhall called this morning to check on patient's status. She stated that if patient doing better she could go home and schedule surgery for next week. When discussed with patient she states she does not want to wait as she is having more discomfort whenever she moves. Dr. Mendenhall stated that Dr. Prakash will see patient and do surgery later today. Did inform Dr. Mendenhall that patient's BP has been elevated tonight and this morning is still high at 169/100. See new order for Lisinopril. Original Note: Patient is alert and oriented. Breath sounds CTA with RA sat of 99%. HRR w/rate of 100 bpm. BP elevated at 197/104 which did not improve after receiving oxycodone for pain but did decrease to 182/98 after pain alleviated with use of IV Morphine. Denied nausea. BT hypoactive and abdomen is soft but with pain in upper abdomen. Is voiding using BSC and denied dysuria. Able to move herself in bed and up to BSC with SBA as reports she sometimes has balance problems. Had SCD's on at shift change but had staff remove them later as stated she was unable to sleep with them on. Will be NPO after 0000 for impending cholecystectomy; verbalized understanding. Fall risk score is moderate and bed alarm is activated. Daughter rooming in.
[2023-01-24] VITALS (21 sets, daily range): BP systolic 95–169; BP diastolic 48–100; PULSE 65–104; RESP 12–20; TEMP 36.2–37.1; O2SAT 92–99; BMI 52.0
--- NOTE | 2023-01-24 | PATH_ITS ---
[facility] Accession Number: [id number] No. of containers..01 Tissue . 01 Material submitted: . gallbladder - GALLBLADDER AND CONTENTS . 01 Diagnosis: Gallbladder And Contents, Cholecystectomy: Acute cholecystitis and cholesterolosis with mucosal erosions and reactive changes. Negative for dysplasia and malignancy. [facility] 02/02/2023 1147 Local . 01 Electronically signed: . Serg Gates MD, Pathologist NPI- [id number] . 01 Gross description: . The specimen is received in formalin labeled with the patient's name, , and gallbladder and contents, consists of a previously opened gallbladder measuring 8.3 x 4.2 x 1.6 cm. No cystic duct is grossly identified, and the edges of the defect/presumed margin are inked blue. The lumen contains a minimal amount of ochoa viscous bile and no calculi are identified in the lumen or the container. The mucosa is ochoa to brown and trabecular with numerous yellow areas of discoloration. The rizvi average 0.3 cm thick and no lesions are identified. Prepress Stripper sections to include partial margin en face, and full thickness sections are submitted in cassette A1. ([id number]) /MRV 02/02/2023 1317 Local . 01 Pathologist provided ICD-10: K81.9 . 01 CPT . 941326 Specimen Comment: A courtesy copy of this report has been sent to [phone] Performed at: 01 [facility] [address] [place] [address], [place], [place] [id number] MD Odilon Sandhu MD Phone: [phone]
[2023-01-24] MEDS: SODIUM CHLORIDE 0.9% 1,000 ML 100 ML IV ×2 (02:25→18:52)
[2023-01-24] MEDS: ACETAMINOPHEN 325 MG TABLET 650 MG PO ×2 (05:35→10:36)
[2023-01-24] MEDS: OXYCODONE IR 10 MG TABLET PO (06:55)
[2023-01-24] MEDS: lisinopriL 20 MG TABLET PO (06:55)
[2023-01-24] MEDS: ALBUTEROL 2.5 MG/3 ML NEB (ADULT) INH ×2 (07:32→19:05)
[2023-01-24] MEDS: CELECOXIB 200 MG CAPSULE PO ×2 (08:42→20:13)
[2023-01-24] MEDS: GABAPENTIN 100 MG CAPSULE 300 MG PO ×2 (08:43→20:13)
--- NOTE | 2023-01-24 10:41 | CM.DANOTE ---
DCP: Case received, EMR reviewed and met with patient. Introduced self and role. Was able to obtain information from patient in order to complete DCP assessment. DCP assessment completed with information currently available. Patient is a 37 year old female who admitted yesterday afternoon to the care of the hospital team. PCP: Had seen Dr. Gela Smith, but needs new provider, provider retired. Payer: confirmed: [employer] . Patient came to the hospital via private vehicle secondary to having sudden onset of abdominal discomfort. Patient also had nausea and vomiting. Patient was diagnosed with acute choecystitis. Met with patient in her room. Patient is alert and oriented. Confirmed that she resides in [place] with daughter. She is , indpependent at baseline. Patient has no current primary care provider, patient indicated, 'she used to see Dr. Smith, but she retired. Went ahead and gave her some resources for primary care providers at [facility]. P: DCP to continue to follow. Plan is home when stable, she is scheduled for surgery this afternoon. 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 No History Provided By Patient,Medical Record Has Patient been admitted in last 30 No days? Prior Living Arrangements Mobile home Household Members children Type of transporation used prior to Drives own vehicle admit Independent with ADL's Yes Is patient alert and oriented? Yes Caregiver for Another No Barriers to Discharge No Discharge Plan Home Transportation Arrangement Family Referrals Initiated None needed,Other Additional Comment Did give patient resources for new providers. Whiteboard Updated in Patient Room with Yes name and ext. # of Steam Hammer Operator Review Status In Process Next Review Type Continued Stay Review
[2023-01-24] MEDS: metroNIDAZOLE 500 MG/100 ML PIGGYBACK 100 MG IV (12:23)
--- NOTE | 2023-01-24 13:12 | PC.NURSE ---
Pt off floor to OR via bed for gall bladder surgery with chart by OR personnel.
[2023-01-24] MEDS: LACTATED RINGERS 1,000 ML 42 ML IV ×2 (13:32→16:33)
--- NOTE | 2023-01-24 13:56 | PM.HP.1 ---
History of Present Illness History of Present Illness Date Patient Seen: 01/24/23 Time Patient Seen: 13:57 Chief complaint: abd pain Narrative: 37-year-old woman history of asthma and morbid obesity who is admitted to the hospital with acute cholecystitis. She presented to the emergency department at [facility] yesterday with complaint of severe epigastric pain with radiation to the back and nausea. An abdominal ultrasound and CT abdomen pelvis were performed results were inconclusive. Subsequently a HIDA scan was performed which demonstrated no filling of the gallbladder consistent with acute cholecystitis. Laboratory studies demonstrate white blood cell count 14 liver function tests within normal limits. Her pain has improved since admission but not resolved. Previous abdominal surgery includes section. [facility] Medical History ADHD Asthma Surgical History S/P ORIF (open reduction internal fixation) fracture Social History household members: children Smoking Status: Current some day smoker alcohol intake: current Meds Home Medications and Allergies Home Medications Medication Instructions Recorded Confirmed Type fluticasone 100 mcg-salmeterol 50 1 puff INH BID ##1 10/08/12 01/23/23 Rx mcg/dose blistr powdr for inhalation (Advair Diskus) lidocaine 5 % topical patch 2 patch topical Q24H arm pain #30 07/23/18 01/23/23 Rx ea albuterol sulfate 5 mg/mL(0.5 %) 5 mg inhalation Q6H PRN shortness 05/13/20 01/23/23 Rx solution for nebulization of breath or wheezing #600 mL albuterol sulfate 90 mcg/actuation 2 puff inhalation Q6H PRN 05/13/20 01/23/23 Rx aerosol inhaler shortness of breath or wheezing #8.5 grams cetirizine 5 mg tablet 10 mg (2 x 5 mg) PO BEDTIME PRN 02/22/22 01/23/23 Rx congestion #60 tabs ipratropium 0.5 mg-albuterol 3 mg 3 ml inhalation Q6-8H PRN 02/22/22 01/23/23 Rx (2.5 mg base)/3 mL nebulization shortness of breath or wheezing soln #180 mL Allergies Allergy/AdvReac Type Severity Reaction Status Date / Time No Known Drug Allergies Allergy Verified 02/22/22 13:09 Exam Vital Signs (past 8 hours): - 01/24/23 06:00 01/24/23 07:35 01/24/23 08:15 Temperature 97.2 F L Pulse Rate 104 H 94 H Respiratory Rate 18 16 Blood Pressure 169/100 H Pulse Oximetry 96 94 99 Oxygen Delivery Method Room Air Room Air Oxygen Flow Rate 0 0 01/24/23 08:49 01/24/23 10:34 01/24/23 13:23 Temperature 97.7 F 97.6 F 98.1 F Pulse Rate 82 83 85 Respiratory Rate 18 16 19 Blood Pressure 138/84 125/74 129/71 Pulse Oximetry 99 94 96 Oxygen Delivery Method Room Air Oxygen Flow Rate Oxygen Delivery Method Room Air Oxygen Flow Rate 0 Narrative Exam Narrative: GENERAL: A well nourished, adult woman, resting comfortably, in no acute distress. HEENT: Normocephalic, atraumatic. No scleral icterus CHEST: Rising symmetrically. No audible wheezes CARDIOVASCULAR: Warm and well perfused. Regular rate ABDOMEN: Positive Tamez sign EXTREMITIES: Normal tone and without edema. NEUROLOGIC: Moving all extremities spontaneously. No gross motor deficits. Objective Labs 01/23/23 00:20 01/23/23 00:20 Assessment & Plan Assessment and plan (1) Acute cholecystitis: Status: Acute Assessment & Plan narrative: 37-year-old woman with morbid obesity and asthma current smoker with acute cholecystitis. Laboratory studies and imaging reviewed and are significant for a positive HIDA scan showing lack of gallbladder filling. We discussed management of acute cholecystitis including antibiotic therapy and surgical intervention. Following discussion her preference is to proceed with laparoscopic cholecystectomy. Overview of the operation was discussed. Operative risks including hemorrhage, infection, damage to surrounding structures, bile duct injury were discussed. She understands that she is at increased perioperative risk as result of her obesity and tobacco use. Her questions have been answered she is in agreement with this plan. She provides her written and verbal consent to proceed. Quality VTE Deep Vein Thrombosis/Pulmonary Embolism Present on Admission: No
--- NOTE | 2023-01-24 14:18 | SUR.OPER ---
Supine on padded OR bed, head on pillow, safety belt at thigh, left arm padded and tucked at side. Right arm secured on padded arm board <90 degrees abduction. Legs uncrossed. Padded footboard in place. Tape over blanket to secure lower legs.
--- NOTE | 2023-01-24 14:20 | SUR.HOLD ---
Addendum entered by Tania Mario R.N. 01/24/23 15:19: 1519 - Circulating RN at bedside to take patient back to OR. Patient left preop in stable condition. Addendum entered by Tania Mario R.N. 01/24/23 15:10: 1510- Patient still in preop on monitor, resting peacefully. Denies any needs or discomfort at this time. Original Note: 1415 - Patient brought back to preop in bed by circulating RN due to a delay in her case. Patient had received versed already, so she was placed on continuous pulse oximeter per protocol. Noted to be 89% on room air, placed on 2L O2 and now satting 95-96%. Patient resting peacefully on monitor with even, unlabored breathing. Awakens appropriately when spoken to. Call light within reach
[2023-01-24] MEDS: PIPERACILLIN/TAZO 4.5 GM in SODIUM CHLORIDE 0.9% 100 ML IV (15:25)
[2023-01-24] MEDS: BUPIVACAINE 0.25% (PF) VIAL 30 ML INJ (15:46)
[2023-01-24] MEDS: ALBUTEROL/IPRATROPIUM 3 ML AMPUL INH (17:09)
--- NOTE | 2023-01-24 17:15 | PM.OP.1 ---
Operative Date/Time/Diagnoses Date of procedure: 01/24/23 Time of procedure: 17:15 Pre-op diagnosis: Acalculous cholecystitis Post-op diagnosis: other (Acalculous cholecystitis, morbid obesity) Procedure & Clinicians Procedure: Laparoscopic subtotal cholecystectomy. Modifier code 22 to be applied given the patient's morbid obesity BMI 52 and gangrenous gallbladder making this more prolonged and complex case then would be typical Same procedure as scheduled: Yes Indications: 37-year-old woman who presented with acute acalculous cholecystitis. Following discussion of the risks benefits and alternatives she elects to proceed with laparoscopic cholecystectomy. Surgeon: Ander Prakash Click Yes if Unassisted: No Operative Notes Findings: Gangrenous gallbladder Unable to visualize the bottom 1/3 of the gallbladder Significant intra abdominal obesity Specimen(s): other (Partial gallbladder) Procedure in detail: Patient was brought to the operating room placed supine on the table. Bilateral lower extremity compression devices were applied. She received Zosyn prior to skin incision. General anesthesia was induced she was intubated with an endotracheal tube. She was then prepped and draped in sterile fashion and a time-out was performed. An infra umbilical incision was made the subcutaneous tissue was divided and the fascia was grasped sharply elevated and incised the abdomen was entered atraumatically. A trocar was then placed in the abdomen was insufflated. A general inspection of the abdomen was made, notable for significant intra-abdominal obesity and a gangrenous gallbladder. Additional trocars were placed in the right upper quadrant and a 12 mm port high in the epigastric region. Gallbladder was thick walled and gangrenous. It was percutaneously drained to facilitate its manipulation. Gallbladder was lifted over the liver and out laterally. We worked to expose the infundibulum but despite maximal reverse Trendelenburg given the combination of her morbid obesity the severe inflammatory response we are unable to expose this. I considered our options and elected to proceed with a subtotal cholecystectomy. Using the LigaSure the gallbladder was divided at approximately the level of the infundibulum then it was removed from the gallbladder fossa. Inspection was made with in the lumen of the gallbladder there was no evidence of gallstones. The abdomen was copiously lavaged with 3 L of sterile saline. Two 19 Japanese Adan drains were placed in the right upper quadrant by the gallbladder fossa brought out through the 5 mm trocar sites. The fascia was then closed at the umbilicus with [id number] Vicryl suture and the remaining skin incisions were closed with Monocryl followed by the application of Dermabond. Patient was extubated and transferred to recovery in stable condition. Modifier code 22 should be applied to this procedure as the time and complexity of the case were significantly more than would be typical as a result of the gangrenous gallbladder and morbid obesity. Complications: none Post-operative Condition: stable Disposition: Acute Care
[2023-01-24] MEDS: HYDROMORPHONE 1 MG INJ IV ×5 (17:17→18:09)
[2023-01-24] MEDS: ONDANSETRON 4 MG/2 ML INJ IV (17:33)
[2023-01-24] MEDS: OXYCODONE IR 5 MG TABLET 10 MG PO (17:49)
[2023-01-24] MEDS: KETOROLAC 30 MG/ML VIAL IV (18:01)
--- NOTE | 2023-01-24 19:07 | PC.NURSE ---
Pt back to room 205 via bed. Pt is sleepy but answers questions appropriately. States pain is tolerable. O2 95% on 2l. Bed alarm on for safety. IV infusing as ordered. SCD's on and running. Family at the bedside. Pt denies nausea or shortness of breath. HOSSEIN drains 1 and 2 emptied (70mls/60mls).
[2023-01-24] MEDS: PIPERACILLIN/TAZO 3.375 GM in SODIUM CHLORIDE 0.9% 100 ML IV (20:14)
[2023-01-25] MEDS: OXYCODONE IR 5 MG TABLET 10 MG PO ×2 (00:43→04:13)
[2023-01-25] MEDS: PIPERACILLIN/TAZO 3.375 GM in SODIUM CHLORIDE 0.9% 100 ML IV (03:16)
[2023-01-25] MEDS: ACETAMINOPHEN 325 MG TABLET 650 MG PO ×4 (04:13→23:50)
[2023-01-25 05:00] VITALS: BP 101/68; PULSE 80; RESP 16; TEMP 36.4; O2SAT 97
[2023-01-25] MEDS: SODIUM CHLORIDE 0.9% 1,000 ML 100 ML IV (05:00)
[2023-01-25 06:06] LABS: Add Manual Diff / Slide Review NO; Basophils Absolute Auto 0 /uL (0-100); Basophils Percent Auto 0.2 % (0-2); Eosinophils Absolute Auto 0 /uL (0-450); Eosinophils Percent Auto 0.1 % (2-4); Hematocrit 35.9 % (36-46); Hemoglobin 11.8 g/dL (12.0-16.0); Lymphocytes Absolute Auto 600 /uL (1100-4500); Lymphocytes Percent Auto 3.7 % (25-40); Mean Corpuscular HGB Conc 32.8 % (30-36); Mean Corpuscular Hemoglobin 31.5 PG (26-34); Mean Corpuscular Volume 95.9 fL (80-100); Monocytes Absolute Auto 800 /uL (0-900); Monocytes Percent Auto 5.1 % (3-14); Neutrophils Absolute Auto 14800 /uL (1500-7000); Neutrophils Percent Auto 90.9 % (50-75); Platelet Count 270 X10^3/uL (150-400); Red Blood Cell Count 3.74 X10^6/uL (4.0-5.2); Red Cell Distribution Width 13.8 % (11.6-14.8); White Blood Cell Count 16.3 X10^3/uL (4.5-11.0)
[2023-01-25 06:24] LABS: Alanine Aminotransferase 46 IU/L (<35); Albumin 3.4 g/dL (3.5-5.0); Alkaline Phosphatase 80 U/L (38-126); Aspartate Aminotransferase 48 IU/L (14-36); Bilirubin Total 0.9 mg/dL (0.2-1.3); Blood Urea Nitrogen 12 mg/dL (7-17); Calcium 8.6 mg/dL (8.4-10.2); Carbon Dioxide 23 mmol/L (22-32); Chloride 106 mmol/L (98-107); Estimated Glomerular Filt Rate > 60 mL/min (>60); Globulin 3.5 g/dL (1.7-4.1); Glucose 143 mg/dL (70-100); HEMOLYSIS < 15 (0-50); Potassium 4.7 mmol/L (3.4-5.1); Sodium 134 mmol/L (137-145); Total Protein 6.9 g/dL (6.3-8.2)
[2023-01-25 08:00] VITALS: O2SAT 91
[2023-01-25] MEDS: GABAPENTIN 100 MG CAPSULE 300 MG PO ×3 (08:58→20:44)
[2023-01-25] MEDS: CELECOXIB 200 MG CAPSULE PO (08:59)
[2023-01-25 09:19] VITALS: BP 100/61; PULSE 80; RESP 16; TEMP 36.8; O2SAT 91
[2023-01-25] MEDS: levoFLOXacin 250 MG TABLET 750 MG PO (12:22)
--- NOTE | 2023-01-25 12:37 | PC.NURSE ---
Pt resting in bed. Instructed Pt and Mother in procedure to empty drains and document amount. Pt and Mother stated they felt confident that they would be able to manage their drains.
--- NOTE | 2023-01-25 15:00 | CM.DPC ---
Addendum entered by Corrina Kidd R.N. 01/25/23 15:07: Checked in with patient, she is alert, tired, from surgery, drains in place, most likely will go home with drains, has supportive family for when she goes home. Original Note: DCP Cont: Patient had her surgery yesterday at about 1700, for her cholecystitis, but was informed that this was about a 5 hour surgery. Patient currently has two drains. Patient will be here another day, most likely will discharge home tomorrow. Had already met with patient yesterday and gave her some resources for medical providers, since she has no current provider. P: DCP to continue to follow. Plan is home when stable, most likely tomorrow. Corrina Kidd RN/Heating Engineer
[2023-01-25] MEDS: NICOTINE 14 PATCH 14 MG TOP (17:38)
--- NOTE | 2023-01-25 18:01 | P.PN_ITS ---
Subjective Subjective Date Patient Seen: 01/25/23 Time Patient Seen: 18:03 Interval history: POD1 subtotal cholecystectomy -No acute events -Tolerating diet -No fever Exam Vital Signs (past 8 hours): Oxygen Delivery Method Room Air Oxygen Flow Rate 0 Narrative Exam Narrative: Gen Adult woman alert and oriented Abdomen Soft appropriately tender to palpation Drains SS with bile staining Objective Labs 01/25/23 05:58 01/25/23 05:58 Labs: Laboratory Results - last 24 hr 01/25/23 05:58 WBC 16.3 H RBC 3.74 L Hgb 11.8 L Hct 35.9 L MCV 95.9 MCH 31.5 MCHC 32.8 RDW 13.8 Plt Count 270 Neut % (Auto) 90.9 H Lymph % (Auto) 3.7 L [place] % (Auto) 5.1 Eos % (Auto) 0.1 L Baso % (Auto) 0.2 Neut # (Auto) 63643 H Lymph # (Auto) 600 L [place] # (Auto) 800 Eos # (Auto) 0 Baso # (Auto) 0 Sodium 134 L Potassium 4.7 Chloride 106 Carbon Dioxide 23 BUN 12 Creatinine 0.92 Estimated GFR > 60 BUN/Creatinine Ratio 13.0 Glucose 143 H Calcium 8.6 Total Bilirubin 0.9 AST 48 H ALT 46 H Alkaline Phosphatase 80 Total Protein 6.9 Albumin 3.4 L Globulin 3.5 Albumin/Globulin Ratio 1.0 PFSH Medical History ADHD Asthma Surgical History S/P ORIF (open reduction internal fixation) fracture Social History household members: children Smoking Status: Current some day smoker alcohol intake: current Assessment & Plan Post-op Postoperative Procedures: Procedures Operation Date: 01/24/23 14:15 Actual Procedure Side Surgeon p Laparoscopic Cholecystectomy Ander Prakash MD Postoperative status narrative: POD 1 sp subtotal laparoscopic cholecystectomy for gangrenous cholecystitis. -Drain teaching -Abx -Anticipate dc home tomorrow on PO abx for total of 5 days if normal LFTs and downtrending leukocytosis Quality VTE Deep Vein Thrombosis/Pulmonary Embolism Present on Admission: No
[2023-01-25 21:45] VITALS: BP 126/68; PULSE 87; RESP 16; TEMP 36.9; O2SAT 94
[2023-01-25] MEDS: OXYCODONE IR 5 MG TABLET PO (23:50)
[2023-01-26 05:45] LABS: Add Manual Diff / Slide Review NO; Basophils Absolute Auto 100 /uL (0-100); Basophils Percent Auto 0.9 % (0-2); Eosinophils Absolute Auto 400 /uL (0-450); Eosinophils Percent Auto 3.6 % (2-4); Hematocrit 33.7 % (36-46); Hemoglobin 11.2 g/dL (12.0-16.0); Lymphocytes Absolute Auto 2000 /uL (1100-4500); Lymphocytes Percent Auto 18.2 % (25-40); Mean Corpuscular HGB Conc 33.2 % (30-36); Mean Corpuscular Hemoglobin 31.6 PG (26-34); Mean Corpuscular Volume 95.2 fL (80-100); Monocytes Absolute Auto 1100 /uL (0-900); Monocytes Percent Auto 10.2 % (3-14); Neutrophils Absolute Auto 7400 /uL (1500-7000); Neutrophils Percent Auto 67.1 % (50-75); Platelet Count 263 X10^3/uL (150-400); Red Blood Cell Count 3.54 X10^6/uL (4.0-5.2)
[2023-01-26] MEDS: ACETAMINOPHEN 325 MG TABLET 650 MG PO ×2 (05:52→12:00)
[2023-01-26 05:54] LABS: Alanine Aminotransferase 38 IU/L (<35); Albumin 3.3 g/dL (3.5-5.0); Alkaline Phosphatase 76 U/L (38-126); Aspartate Aminotransferase 32 IU/L (14-36); BUN Creatinine Ratio 15.7 (6-22); Bilirubin Total 0.5 mg/dL (0.2-1.3); Blood Urea Nitrogen 14 mg/dL (7-17); Calcium 8.7 mg/dL (8.4-10.2); Carbon Dioxide 26 mmol/L (22-32); Chloride 107 mmol/L (98-107); Estimated Glomerular Filt Rate > 60 mL/min (>60); Globulin 3.4 g/dL (1.7-4.1); Glucose 93 mg/dL (70-100); HEMOLYSIS < 15 (0-50); Sodium 137 mmol/L (137-145); Total Protein 6.7 g/dL (6.3-8.2)
[2023-01-26 07:00] VITALS: BP 132/70; PULSE 81; TEMP 36.4; O2SAT 90
[2023-01-26 08:00] VITALS: O2SAT 90
[2023-01-26] MEDS: OXYCODONE IR 5 MG TABLET 10 MG PO ×2 (09:38→13:25)
[2023-01-26] MEDS: GABAPENTIN 100 MG CAPSULE 300 MG PO ×2 (09:39→15:19)
--- NOTE | 2023-01-26 10:28 | CM.DPC ---
DCP Cont. Reviewed EMR and team rounds for status updates. Pt is medically stable for d/c home today, her mother will transport home. No further d/c needs identified at this time.
[2023-01-26] MEDS: levoFLOXacin 250 MG TABLET 750 MG PO (12:06)
--- NOTE | 2023-01-26 15:57 | PC.NURSE ---
Patient is A&Ox4. VSS, RA. She is able to ambulate in her room this morning slowly. She reports having multiple soft BM's today (4) and incisions to abdomen c/d/i. HOSSEIN drains #1 draining minimal light pink serosanguineous drainage. HOSSEIN drain #2 draining bile and brown colored and emptying every 3-4 hours. She reports her pain is managed well with PRN oxycodone 10 mg today and scheduled tylenol. MD Prakash clears patient for discharge home on oral antibiotics. She verbalizes understanding of drain management, medications, s/sx of infection, incision site care, activity limitations as well as follow up appointment next week with MD Prakash. She is escorted via wheelchair by RN to private vehicle with daughter with all of her belongings for discharge home today at 1545 this afternoon.
== END 2023-01-26 15:45 | disposition home or self-care (01) ==
LOC: ED 01-23 00:07 → AC 01-23 16:49
PROVIDERS: Surgery; Admitting Provider Surgery; Emergency Provider Emergency Medicine; PCP Family Medicine; Referring Provider Emergency Medicine; Visit Provider Surgery
PROC: 0FT44ZZ Resection of Gallbladder, Percutaneous Endoscopic Approach (ICD-10-PCS; CPT 47562; principal; 2023-01-24 14:15)
DX: K81.0 Acute cholecystitis (principal); K82.A1 Gangrene of gallbladder in cholecystitis; E66.01 Morbid (severe) obesity due to excess calories; Z68.43 Body mass index [BMI] 50.0-59.9, adult; F17.290 Nicotine dependence, other tobacco product, uncomplicated; J45.909 Unspecified asthma, uncomplicated
CPT/HCPCS: 47562; 36415; 74177; 76705; 78226; 80053; 81001; 81025; 83690; 85025; 94640; 96365; 96375; 96376; 99222; 99285; A9537; G0378; J0131; J0696; J1100; J1170; J1885; J2250; J2270; J2405; J2543; J2704; J3010; J3490; J7613; Q9967

== ENCOUNTER 2023-02-09 07:56 | Emergency (ER) | payer OTHER, MEDICAID, SELFPAY ==
[2023-01-23 18:00] VITALS: BMI 52.0
[2023-02-09] VITALS (14 sets, daily range): BP systolic 138–185; BP diastolic 78–107; PULSE 87–110; RESP 13–175; TEMP 36.6; O2SAT 90–98; BMI 48.0
--- NOTE | 2023-02-09 08:23 | DI.CT.S_ITS ---
PROCEDURE: CT ABDOMEN PELVIS W CON INDICATIONS: increased pain post cholecystectomy with drains TECHNIQUE: After the administration of IV contrast, axial sections were acquired from the lung bases to the pubic symphysis. Coronal and sagittal reformats were performed. For radiation dose reduction, the following was used: automated exposure control, adjustment of mA and/or kV according to patient size. COMPARISON: [facility], [place], [place] H[place] NO EJECTION FRACTION, 01/23/2023, 10:06. [facility], [place], US ABDOMEN LIMITED, 01/23/2023, 2:23. [facility], CT, CT ABDOMEN PELVIS W CON, 01/23/2023, 0:19. FINDINGS: Image quality: Excellent. Lung bases: Bibasilar atelectasis. No pleural effusion. Heart: No significant findings. ABDOMEN: Liver: No solid mass. Gallbladder: Gallbladder is absent. Cystic duct remnant versus is small collection at the gallbladder fossa measuring 2.8 x 2.2 cm, (2/41). There is a mild surrounding enhancement. A surgical drain immediately anterior to this site. The surgical drain loops in the right abdomen and exits the right abdominal wall. Mild stranding in the fat near the catheter. Biliary ducts: CBD is not dilated. No intrahepatic biliary ductal dilatation. Pancreas: No ductal dilation. No fluid collection. Spleen: Size is within normal limits. Adrenal Glands: No adrenal nodules. Kidneys and Ureters: No hydronephrosis. No solid mass. No complex renal cystic lesion which requires follow up. Stomach and Bowel: Normal colonic caliber, without significant wall thickening. Normal appendix. Peritoneum: No abnormal intraperitoneal fluid. No free air. Ventral Wall: Tiny fat containing umbilical hernia. Abdominal Nodes: No retroperitoneal or mesenteric adenopathy by size criteria. Vessels: Aorta and inferior vena cava are normal in size. PELVIS: Pelvic Organs: Anteverted uterus. IUD centered in the uterus. Bladder: Unremarkable. Pelvic Nodes: No enlarged lymph nodes. Miscellaneous: No inguinal hernias are seen. Bones: No suspicious osseous lesion. IMPRESSION: Concern for mild inflammatory change at the cystic duct remnant. Findings could also be postsurgical in nature. Less likely small abscess or bile leak. Surgical drain is immediately adjacent to this site. No pneumoperitoneum. No bowel obstruction. Dictated by: Rodrigue Escoto M.D. on 02/09/2023 at 8:59 Approved by: Rodrigue Escoto M.D. on 02/09/2023 at 9:10
--- NOTE | 2023-02-09 08:26 | ED.ABDPAIN ---
HPI - Abdominal Pain General Chief Complaint: Abdominal Pain Stated Complaint: 2wks post op, pain & tube not draining Time Seen by Provider: 02/09/23 07:59 History of Present Illness HPI narrative: Patient 37-year-old female with recent history of subtotal cholecystectomy for gangrenous gallbladder on 01/24/2023 presenting today with increased abdominal pain. She was seen evaluated by surgery yesterday, at that time doing well. Apparently initially had 2 drains now has 1. She reports that the remaining drain isn't draining as much as it used to. At 2:00 a.m. she woke up with intense pain and diaphoresis. Some nausea but no vomiting or fever. She has been doing well recovering last weeks no increased pain is new. Related Data Previous Rx's Medication Instructions Recorded fluticasone 100 mcg-salmeterol 50 1 puff INH BID ##1 10/08/12 mcg/dose blistr powdr for inhalation (Advair Diskus) lidocaine 5 % topical patch 2 patch topical Q24H arm pain #30 07/23/18 ea albuterol sulfate 5 mg/mL(0.5 %) 5 mg inhalation Q6H PRN shortness 05/13/20 solution for nebulization of breath or wheezing #600 mL albuterol sulfate 90 mcg/actuation 2 puff inhalation Q6H PRN 05/13/20 aerosol inhaler shortness of breath or wheezing #8.5 grams cetirizine 5 mg tablet 10 mg (2 x 5 mg) PO BEDTIME PRN 02/22/22 congestion #60 tabs ipratropium 0.5 mg-albuterol 3 mg 3 ml inhalation Q6-8H PRN 02/22/22 (2.5 mg base)/3 mL nebulization shortness of breath or wheezing soln #180 mL acetaminophen 325 mg capsule 650 mg (2 x 325 mg) PO QID PRN 01/26/23 (Tylenol) pain #60 caps ibuprofen 200 mg tablet 400 mg (2 x 200 mg) PO Q6H #60 tabs 01/26/23 oxycodone 5 mg tablet 5 mg PO Q6H PRN pain #20 tabs 01/26/23 sulfamethoxazole 800 1 tab PO Q12H #10 tabs 02/08/23 mg-trimethoprim 160 mg tablet (Bactrim DS) Allergies Allergy/AdvReac Type Severity Reaction Status Date / Time No Known Drug Allergies Allergy Verified 02/08/23 11:31 Patient History Medical History ADHD Asthma Surgical History S/P ORIF (open reduction internal fixation) fracture Social History household members: children Smoking Status: Current some day smoker alcohol intake: current Smoking Status: Current some day smoker tobacco type: vaping alcohol intake frequency: holidays/special occasions only Alcohol type: beer Substance Use Type: marijuana Exam Initial Vital Signs Initial Vital Signs: Vital Signs Temperature 97.8 F 02/09/23 08:05 Pulse Rate 110 H 02/09/23 08:05 Respiratory Rate 23 02/09/23 08:05 Blood Pressure 185/107 H 02/09/23 08:05 Pulse Oximetry 97 02/09/23 08:05 Oxygen Delivery Method Room Air 02/09/23 08:05 GENERAL: Alert 37-year-old and in no acute distress. HEENT: Head atraumatic,EOMI, pupils reactive, face symmetric, moist mucous membranes CARDIOVASCULAR: Regular rate and rhythm without murmurs, rubs or gallops. RESPIRATORY: Breath sounds equal bilaterally, no wheezes rales or rhonchi. ABDOMEN: Soft, tender epigastric upper quadrant. Drain place there file in the 2 and in both no serosanguineous or bloody. Has a EXTREMITIES: Normal range of motion, no clubbing or edema. Neurovascularly intact NEUROLOGICAL: Alert and oriented x4. No cranial nerve SKIN: Warm, dry, no laceration, no petechiae, no rashes or lesions. Course Orders Ordered: ED Orders 02/09/23 11:02 Urinalysis and Microscopic Stat Discontinued Medications Hydromorphone HCl (Hydromorphone 1 Mg Inj) 1 mg IV NOW ONE Stop: 02/09/23 08:24 Last Admin: 02/09/23 08:34 Dose: 1 mg Documented By: CHARANJIT Hydromorphone HCl (Hydromorphone 1 Mg Inj) 1 mg IV NOW ONE Stop: 02/09/23 09:27 Last Admin: 02/09/23 09:34 Dose: 1 mg Documented By: CHARANJIT Hydromorphone HCl (Hydromorphone 1 Mg Inj) 1 mg IV NOW ONE Stop: 02/09/23 12:00 Last Admin: 02/09/23 12:13 Dose: Not Given Documented By: CHARANJIT Piperacillin Sod/Tazobactam (Sod 4.5 gm/ Sodium Chloride) 100 mls @ 200 mls/hr IV NOW ONE Stop: 02/09/23 12:56 Last Infusion: 02/09/23 14:01 Dose: Infused Documented By: Admin: 02/09/23 13:31 Dose: 200 mls/hr Documented By: ELEAZAR Ketorolac Tromethamine (Ketorolac 30 Mg/Ml Vial) 15 mg IV NOW ONE Stop: 02/09/23 09:27 Last Admin: 02/09/23 09:34 Dose: 15 mg Documented By: CHARANJIT Lorazepam (Lorazepam 2 Mg/Ml Inj) 1 mg IV NOW ONE Stop: 02/09/23 13:44 Last Admin: 02/09/23 14:03 Dose: 1 mg Documented By: WOLFGANG Morphine Sulfate (Morphine 4 Mg/Ml Inj) 4 mg IV NOW ONE Stop: 02/09/23 12:08 Last Admin: 02/09/23 12:13 Dose: 4 mg Documented By: CHARANJIT Morphine Sulfate (Morphine 4 Mg/Ml Inj) 4 mg IV NOW PRN PRN Reason: Pain, Moderate (4-6) Morphine Sulfate (Morphine 4 Mg/Ml Inj) 4 mg IV Q2HR PRN PRN Reason: Pain, Moderate (4-6) Stop: 02/10/23 12:33 Vital Signs Vital signs: Vital Signs - 8 hr 02/09/23 10:30 02/09/23 11:30 02/09/23 12:00 Pulse Rate 88 89 90 Respiratory Rate 17 13 20 Blood Pressure 151/81 H Pulse Oximetry 92 90 L 91 Oxygen Delivery Method Room Air Room Air Room Air 02/09/23 12:30 02/09/23 13:00 02/09/23 13:30 Pulse Rate 91 H 92 H 94 H Respiratory Rate 21 22 18 Blood Pressure 165/89 H 178/97 H 172/97 H Pulse Oximetry 91 92 91 Oxygen Delivery Method Room Air Room Air Room Air 02/09/23 14:00 Pulse Rate Respiratory Rate 175 H Blood Pressure Pulse Oximetry 98 Oxygen Delivery Method Room Air MDM - Abdominal Pain Lab Data 02/09/23 08:25 02/09/23 08:25 Labs: Lab Results 02/09/23 02/09/23 Range/Units 08:25 11:02 WBC 16.5 H (4.5-11.0) X10^3/uL RBC 3.93 L (4.0-5.2) X10^6/uL Hgb 12.1 (12.0-16.0) g/dL Hct 36.7 (36-46) % MCV 93.6 (80-100) fL MCH 30.7 (26-34) PG MCHC 32.8 (30-36) % RDW 13.4 (11.6-14.8) % Plt Count 366 (150-400) X10^3/uL Neut % (Auto) 79.9 H (50-75) % Lymph % (Auto) 6.1 L (25-40) % [place] % (Auto) 10.5 (3-14) % Eos % (Auto) 2.6 (2-4) % Baso % (Auto) 0.9 (0-2) % Neut # (Auto) 08507 H (1736-8744) /uL Lymph # (Auto) 1000 L (7253-1069) /uL [place] # (Auto) 1700 H (0-900) /uL Eos # (Auto) 400 (0-450) /uL Baso # (Auto) 100 (0-100) /uL Sodium 136 L (137-145) mmol/L Potassium 4.4 (3.4-5.1) mmol/L Chloride 101 (98-107) mmol/L Carbon Dioxide 25 (22-32) mmol/L BUN 10 (7-17) mg/dL Creatinine 0.80 (0.52-1.04) mg/dL Estimated GFR > 60 (>60) mL/min BUN/Creatinine Ratio 12.5 (6-22) Glucose 118 H (70-100) mg/dL Calcium 9.2 (8.4-10.2) mg/dL Total Bilirubin 1.6 H (0.2-1.3) mg/dL AST 37 H (14-36) IU/L ALT 49 H (<35) IU/L Alkaline Phosphatase 110 (38-126) U/L Total Protein 7.2 (6.3-8.2) g/dL Albumin 3.8 (3.5-5.0) g/dL Globulin 3.4 (1.7-4.1) g/dL Albumin/Globulin Ratio 1.1 (1.0-2.8) Lipase 69 (23-300) U/L Urine Color Yellow Urine Appearance Clear Urine pH 5.5 (4.5-8.0) Ur Specific [place] 1.015 (1.000-1.035) Urine Protein Trace H (Negative) Urine Glucose (UA) Negative (Negative) g/dL Urine Ketones Negative (NEGATIVE) Urine Occult Blood Negative (Negative) Urine Nitrate Negative (Negative) Urine Bilirubin Negative (NEGATIVE) Urine Urobilinogen 0.2 (0.2) E.U./dL Ur Leukocyte Esterase Negative (NEGATIVE) Urine RBC 0-1/hpf (0-5/HPF) Urine WBC 0-1/hpf (0-5/HPF) Ur Squamous Epith Cells 10-30 /hpf H (0-5/HPF) Urine Bacteria Occasional (0-1) (None) Urine Mucus 1+ H (Negative) Ur Culture Indicated? Cult not indicated Point of care testing: Urine Dip Bedside Urine Glucose Negative Bedside Urine Bilirubin - Negative Bedside Urine Ketone - Negative Urine Specific [place] 1.015 Bedside Urine Occult Blood - Negative Bedside Urine pH 6.0 Bedside Urine Protein +/- 15 Bedside Urine Urobilinogen - Negative Bedside Urine Nitrite - Negative Bedside Urine Leukocytes - Negative Esterase Imaging Data CT scan - abdomen/pelvis: Radiologist's Impression: PROCEDURE: CT ABDOMEN PELVIS W CON INDICATIONS: increased pain post cholecystectomy with drains TECHNIQUE: After the administration of IV contrast, axial sections were acquired from the lung bases to the pubic symphysis. Coronal and sagittal reformats were performed. For radiation dose reduction, the following was used: automated exposure control, adjustment of mA and/or kV according to patient size. COMPARISON: [place], [place], [place] NO EJECTION FRACTION, 01/23/2023, 10:06. [facility], [place], US ABDOMEN LIMITED, 01/23/2023, 2:23. [facility], CT, CT ABDOMEN PELVIS W CON, 01/23/2023, 0:19. FINDINGS: Image quality: Excellent. Lung bases: Bibasilar atelectasis. No pleural effusion. Heart: No significant findings. ABDOMEN: Liver: No solid mass. Gallbladder: Gallbladder is absent. Cystic duct remnant versus is small collection at the gallbladder fossa measuring 2.8 x 2.2 cm, (2/41). There is a mild surrounding enhancement. A surgical drain immediately anterior to this site. The surgical drain loops in the right abdomen and exits the right abdominal wall. Mild stranding in the fat near the catheter. Biliary ducts: CBD is not dilated. No intrahepatic biliary ductal dilatation. Pancreas: No ductal dilation. No fluid collection. Spleen: Size is within normal limits. Adrenal Glands: No adrenal nodules. Kidneys and Ureters: No hydronephrosis. No solid mass. No complex renal cystic lesion which requires follow up. Stomach and Bowel: Normal colonic caliber, without significant wall thickening. Normal appendix. Peritoneum: No abnormal intraperitoneal fluid. No free air. Ventral Wall: Tiny fat containing umbilical hernia. Abdominal Nodes: No retroperitoneal or mesenteric adenopathy by size criteria. Vessels: Aorta and inferior vena cava are normal in size. PELVIS: Pelvic Organs: Anteverted uterus. IUD centered in the uterus. Bladder: Unremarkable. Pelvic Nodes: No enlarged lymph nodes. Miscellaneous: No inguinal hernias are seen. Bones: No suspicious osseous lesion. IMPRESSION: Concern for mild inflammatory change at the cystic duct remnant. Findings could also be postsurgical in nature. Less likely small abscess or bile leak. Surgical drain is immediately adjacent to this site. No pneumoperitoneum. No bowel obstruction. Dictated by: Rodrigue Escoto M.D. on 02/09/2023 at 8:59 MDM Narrative Medical decision making narrative: 37 year female with recent history of subtotal cholecystectomy presenting with sudden onset increasing pain last night. 2 weeks. She continues to have male draining 1 of her drains. Blood work does show leukocytosis 16.5 elevated bilirubin 1.6 with mild elevation in liver enzymes. She is afebrile mildly tachycardic but in a bit of pain. She is required multiple doses of Dilaudid morphine and Toradol. Drain is in place in draining bile incision sites are clean and dry. CT does show postsurgical changes with inflammation. No confirmation of biliary leak. Dr. Prakash updated patient's symptoms test results request that patient be transferred for ERCP concern for biliary leak. Dr. Kauffman at [facility] updated patient's symptoms test results agrees that patient definitely needs an ERCP and to be transferred over Dr. Crudder, hospitalist [facility] updated patient's symptoms test results and accepts patient for transfer. Discharge Plan Departure Patient Disposition: [facility] Clinical Impression: Postprocedural leakage from bile duct Prescriptions: No Action fluticasone propion-salmeterol [Advair Diskus] 100 MCG/50 MCG blister with device 1 puff INH BID Qty: 1 12RF Rx Instructions: PRN sulfamethoxazole-trimethoprim [Bactrim DS] 800-160 mg tablet 1 tab PO Q12H Qty: 10 0RF albuterol sulfate 90 mcg/actuation HFA aerosol inhaler 2 puff inhalation Q6H PRN (Reason: shortness of breath or wheezing) Qty: 8.5 0RF albuterol sulfate 5 mg/mL solution for nebulization 5 mg inhalation Q6H PRN (Reason: shortness of breath or wheezing) Qty: 600 0RF ipratropium-albuterol 0.5 mg-3 mg(2.5 mg base)/3 mL solution for nebulization 3 ml inhalation Q6-8H PRN (Reason: shortness of breath or wheezing) Qty: 180 2RF cetirizine 5 mg tablet 10 mg PO BEDTIME PRN (Reason: congestion) Qty: 60 0RF lidocaine 5 % adhesive patch,medicated 2 patch TOP Q24H Qty: 30 0RF Rx Instructions: leave 1-2 patches on most painful area for 12 hrs daily for pain PRN ibuprofen 200 mg tablet 400 mg PO Q6H Qty: 60 0RF oxycodone 5 mg tablet 5 mg PO Q6H PRN (Reason: pain) Qty: 20 0RF acetaminophen [Tylenol] 325 mg capsule 650 mg PO QID PRN (Reason: pain) Qty: 60 0RF Referrals: Tejinder Smith DO [Primary Care Provider] -
[2023-02-09] MEDS: HYDROMORPHONE 1 MG INJ IV ×2 (08:34→09:34)
[2023-02-09 08:40] LABS: Add Manual Diff / Slide Review NO; Basophils Absolute Auto 100 /uL (0-100); Basophils Percent Auto 0.9 % (0-2); Eosinophils Absolute Auto 400 /uL (0-450); Eosinophils Percent Auto 2.6 % (2-4); Hematocrit 36.7 % (36-46); Hemoglobin 12.1 g/dL (12.0-16.0); Lymphocytes Absolute Auto 1000 /uL (1100-4500); Lymphocytes Percent Auto 6.1 % (25-40); Mean Corpuscular HGB Conc 32.8 % (30-36); Mean Corpuscular Hemoglobin 30.7 PG (26-34); Mean Corpuscular Volume 93.6 fL (80-100); Monocytes Absolute Auto 1700 /uL (0-900); Monocytes Percent Auto 10.5 % (3-14); Neutrophils Absolute Auto 13200 /uL (1500-7000); Neutrophils Percent Auto 79.9 % (50-75); Platelet Count 366 X10^3/uL (150-400); Red Blood Cell Count 3.93 X10^6/uL (4.0-5.2); Red Cell Distribution Width 13.4 % (11.6-14.8); White Blood Cell Count 16.5 X10^3/uL (4.5-11.0)
[2023-02-09 08:54] LABS: Alanine Aminotransferase 49 IU/L (<35); Albumin 3.8 g/dL (3.5-5.0); Albumin Globulin Ratio 1.1 (1.0-2.8); Alkaline Phosphatase 110 U/L (38-126); Aspartate Aminotransferase 37 IU/L (14-36); BUN Creatinine Ratio 12.5 (6-22); Bilirubin Total 1.6 mg/dL (0.2-1.3); Blood Urea Nitrogen 10 mg/dL (7-17); Calcium 9.2 mg/dL (8.4-10.2); Carbon Dioxide 25 mmol/L (22-32); Chloride 101 mmol/L (98-107); Estimated Glomerular Filt Rate > 60 mL/min (>60); Globulin 3.4 g/dL (1.7-4.1); Glucose 118 mg/dL (70-100); HEMOLYSIS < 15 (0-50); Lipase 69 U/L (23-300); Potassium 4.4 mmol/L (3.4-5.1); Sodium 136 mmol/L (137-145); Total Protein 7.2 g/dL (6.3-8.2)
[2023-02-09] MEDS: KETOROLAC 30 MG/ML VIAL 15 MG IV (09:34)
--- NOTE | 2023-02-09 09:56 | PC.NURSE ---
FINANCIAL ASSISTANT Note: This FINANCIAL ASSISTANT gave pt an ice bag for right shoulder pain
[2023-02-09 11:17] LABS: Appearance Urine UA CLEAR; Bilirubin Urine UA NEGATIVE (NEGATIVE); Color Urine UA YELLOW; Glucose Urine UA NEGATIVE (Negative); Ketones Urine UA NEGATIVE (NEGATIVE); Leukocyte Esterase Urine UA NEGATIVE (NEGATIVE); Nitrite Urine UA NEGATIVE (Negative); Occult Blood Urine UA NEGATIVE (Negative); Protein Urine UA TRACE (Negative); Specific Gravity Urine UA 1.015 (1.000-1.035); Urobilinogen Urine UA 0.2 E.U./dL (0.2)
[2023-02-09 11:30] LABS: pH Urine UA 5.5 (4.5-8.0)
[2023-02-09 11:32] LABS: Bacteria Urine Occasional (0-1); Culture Indicated Urine Cult Not Indicated; Mucus Urine 1+ (Negative); RBC Urine 0-1/HPF (0-5/HPF); Squamous Epithelial Cell Urine 10-30 /HPF (0-5/HPF); WBC Urine 0-1/HPF (0-5/HPF)
[2023-02-09] MEDS: MORPHINE 4 MG/ML INJ IV (12:13)
[2023-02-09] MEDS: PIPERACILLIN/TAZO 4.5 GM in SODIUM CHLORIDE 0.9% 100 ML IV (13:31)
[2023-02-09] MEDS: LORazepam 2 MG/ML INJ 1 MG IV (14:03)
== END 2023-02-09 14:20 | disposition short-term general hospital (02) ==
PROVIDERS: Emergency Provider Emergency Medicine; PCP Family Medicine
DX: K91.89 Other postprocedural complications and disorders of digestive system (principal); R00.0 Tachycardia, unspecified
CPT/HCPCS: 36415; 74177; 80053; 81001; 81003; 83690; 85025; 96365; 96375; 96376; 99284; J1170; J1885; J2060; J2270; J2543